=== PATIENT | male | born 1965 | race Caucasian/White ===

== ENCOUNTER 2017-10-10 15:25 | Inpatient (IN) | payer OTHER ==
[2017-10-10] MEDS ORDERED: PIPERACILLIN-TAZOBACTAM 3.375 GM in DEXTROSE/WATER 1 50ML.BAG IVPB STA (15:40)
[2017-10-10] MEDS ORDERED: AMPICILLIN-SULBACTAM 3 GM in SODIUM CHLORIDE 0.9% 100 ML IVPB STA (15:41)
[2017-10-10] MEDS: SODIUM CHLORIDE 0.9% 1,000 ML IV SCH (15:46)
[2017-10-10] MEDS ORDERED: VANCOMYCIN IV PER PHARMACY 1 EACH MISC MISCELLANE PRN (15:55)
[2017-10-10] MEDS ORDERED: NALOXONE 0.4 MG/ML 1 ML VIAL IV PRN (16:02)
--- NOTE | 2017-10-10 16:02 | ED ---
General Adult HPI - General Chief complaint: Skin/Abscess/Foreign Body Stated complaint: Foot Injury Time Seen by Provider: 10/10/17 15:34 Source: patient, EMS, RN notes reviewed Mode of arrival: EMS Limitations: no limitations - History of Present Illness Initial comments: This a 52-year-old male presents emergency Department who is a transfer from [facility] for acute renal failure, anemia, right foot infection/ fracture. Patient states she was diagnosed with a fractured to his right foot on Tuesday. Patient states that he's had a wound from a cut a few days to a week ago. Patient states that he has now been swollen, infected. Patient was states he has not been feeling well states he has not been eating or drinking he centimeters dehydrated with a creatinine of 6.0, BUN 104. Patient was given IV hydration. Patient hemoglobin is currently 6.5 baseline 8-8.2. Patient is a diabetic. Patient received 250 mg of vancomycin at [facility]. He should not receive any blood. Patient states that his right leg is swollen he states he normally is swollen but this is worsened usual. He has not had a recent ultrasound. X-ray of his right foot shows Charcot type arthropathy with soft tissue swelling bony destruction and dislocation evident - Related Data Home Medications Medication Instructions Recorded Confirmed Ascorbic Acid [Vitamin C] 500 mg PO BID 10/10/17 10/10/17 Carvedilol [Coreg] 12.5 mg PO BID 10/10/17 10/10/17 Chromium Picolinate 1,000 mcg PO DAILY 10/10/17 10/10/17 Ferrous Sulfate [Feosol] 325 mg PO BID 10/10/17 10/10/17 Furosemide [Lasix] 40 mg PO HS 10/10/17 10/10/17 Furosemide [Lasix] 60 mg PO QAM 10/10/17 10/10/17 Insulin Glargine,Hum.rec.anlog 38 - 40 units SQ HS 10/10/17 10/10/17 [Toujeo Solostar] Losartan Potassium [Cozaar] 100 mg PO DAILY 10/10/17 10/10/17 Multivitamin [Men's Multi-Vitamin] 1 tab PO DAILY 10/10/17 10/10/17 [place]-3 Fatty Acids/Fish Oil [Fish 1 cap PO DAILY 10/10/17 10/10/17 Oil 1,000 mg Softgel] cloNIDine HCL [Catapres] 0.1 mg PO BID 10/10/17 10/10/17 Allergies Allergy/AdvReac Type Severity Reaction Status Date / Time No Known Allergies Allergy Verified 10/10/17 16:22 Review of Systems ROS Statement: Those systems with pertinent positive or pertinent negative responses have been documented in the HPI. ROS Other: All systems not noted in ROS Statement are negative. Past Medical History Past Medical History: Diabetes Mellitus, Hyperlipidemia, Hypertension, Vascular Disorder Additional Past Medical History / Comment(s): chonic anemia, kidney disease, heart mumur, bleeding ulcer History of Any Multi-Drug Resistant Organisms: None Reported Past Surgical History: Hernia Repair Additional Past Surgical History / Comment(s): eye surgery Past Psychological History: No Psychological Hx Reported Smoking Status: Never smoker Past Alcohol Use History: Rare General Exam Limitations: no limitations General appearance: alert, in no apparent distress, obese Respiratory exam: Present: normal lung sounds bilaterally. Absent: respiratory distress, wheezes, rales, rhonchi, stridor Cardiovascular Exam: Present: regular rate, normal rhythm, normal heart sounds. Absent: systolic murmur, diastolic murmur, rubs, gallop, clicks Extremities exam: Present: other (Right lower extremity there is severe swelling noted with a large foot ulcer in the mid plantar surface with surrounding erythema and drainage and warmth. There are pulses are palpable though faint on the right.) Back exam: Absent: CVA tenderness (R), CVA tenderness (L) Skin exam: Present: warm, dry, intact, normal color. Absent: rash Course Vital Signs 10/10/17 15:29 Temperature 98.4 F Pulse Rate 74 Respiratory 16 Rate Blood Pressure 126/60 O2 Sat by Pulse 99 Oximetry Medical Decision Making - Medical Decision Making 52-year-old male presented for multiple complaints as a transfer. Patient be admitted for blood transfusion, IV antibiotics, hydration for acute renal failure. He shouldn't will not be placed in a splint at this time secondary to his infection he'll be nonweightbearing. Patient will be given additional vancomycin by pharmacy dosing. Disposition Clinical Impression: Diabetic ulcer of right foot, Foot fracture, right, Anemia, Acute renal failure Disposition: ADMITTED IP TO THIS HOSP Condition: Fair Referrals: Cholo Hollingsworth MD [Primary Care Provider] - 1-2 days
--- NOTE | 2017-10-10 16:46 | US ---
EXAMINATION TYPE: US venous doppler duplex LE RT DATE OF EXAM: 10/10/2017 4:37 PM COMPARISON: US 2011 CLINICAL HISTORY: Pain. Right foot pain/injury SIDE PERFORMED: Right TECHNIQUE: The lower extremity deep venous system is examined utilizing real time linear array sonog cindy with graded compression, doppler sonography and color-flow sonography. VESSELS IMAGED: External Iliac Vein (EIV) Common Femoral Vein Deep Femoral Vein Greater Saphenous Vein * Femoral Vein Popliteal Vein Small Saphenous Vein * Proximal Calf Veins (* superficial vessels) Right Leg: Appears negative for DVT Right groin: 4.7 x 2.2 x 5.2cm lymph node IMPRESSION: No evidence of deep venous thrombosis. There is a large right inguinal lymph node demonstrated.
[2017-10-10] MEDS ORDERED: VANCOMYCIN 2,000 MG in SODIUM CHLORIDE 0.9% 500 ML IVPB ONE (17:00)
[2017-10-10 19:34] VITALS: BMI 39.0
[2017-10-10] MEDS: PANTOPRAZOLE 40 MG/10 ML VIAL IVP SCH (20:54)
[2017-10-10] MEDS: ASCORBIC ACID 500 MG TAB PO SCH (23:14)
[2017-10-10] MEDS: CARVEDILOL 12.5 MG TAB PO SCH (23:14)
--- NOTE | 2017-10-10 23:53 | HP ---
HISTORY AND PHYSICAL DATE OF SERVICE: October 10, 2017. PRESENTING COMPLAINT: Right foot abscess. HISTORY OF PRESENTING COMPLAINT: A very pleasant 52 -year-old patient who does follow with Dr. Hollingsworth. Chronic stable medical conditions include diabetes, hypertension, chronic kidney disease, peptic ulcer disease. The patient on October 02 in the shower had a broken tile in his bathroom and got a injury on the plantar aspect. He wrapped up put some antibiotics but continued to become more and more painful, tender, and decided to finally go down to [facility] when the pain became unbearable. The patient has had numbness and tingling especially in the right foot for quite some time. Normally wears tennis shoes. X-ray done there showed the foot to have Charcot foot and a soft tissue swelling in there. The patient also was discovered to have a hemoglobin of 6.5, BUN of 104 and a creatinine of 6. Hence patient was transferred down here. REVIEW OF SYSTEMS: Review of systems: Fever, weak, tired, run down. HEENT none. Respiratory none. Cardiovascular none. Gastrointestinal none. Genitourinary none. Musculoskeletal as above. Dermatological as above. Lymphatics none. Psychiatry none. Neurological: Numbness and tingling in the feet, especially in the right feet. PAST MEDICAL HISTORY: Of diabetes, hypertension, chronic kidney disease, peptic ulcer disease, bleeding ulcer. PAST SURGICAL HISTORY: Hernia repair, eye surgery. SOCIAL HISTORY: Does not smoke or drink alcohol. . 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 FAMILY HISTORY: Reviewed, noncontributory to presentation. HOME MEDICATIONS: 1. Ferrous sulfate 325 mg p.o. b.i.d. 2. Chromium picolinate 1000 mcg p.o. daily. 3. Vitamin C 500 mg b.i.d. 4. Fish oil 1 capsule p.o. daily. 5. Multivitamin 1 tab p.o. daily. 6. Insulins [place] 38-40 units subcu q.h.s. 7. Catapres 0.1 mg p.o. b.i.d. 8. Cozaar 100 mg p.o. daily. 9. Lasix 60 mg in the morning, 40 mg at night. 10.Coreg 12.5 p.o. b.i.d. ALLERGIES: None. PHYSICAL EXAMINATION: Temperature 101.6, pulse 81, respiratory 20, blood pressure 124/58, pulse ox 97% on 2 L. GENERAL APPEARANCE: Is well built, BMI 39, sitting up tired-appearing. Eyes pupils equal. Conjunctivae normal. HEENT external appearance of nose and ears normal. Oral cavity normal. Neck short thick, JVD unable to assess. Mass not palpable. Respiratory effort normal. Lungs fair entry. Cardiovascular 1st and 2nd sounds normal. Some edema. ABDOMEN: Distended, soft. Liver and spleen not palpable. Lymphatics: No lymph nodes palpable in the neck and axilla. PSYCHIATRY: Alert and oriented times three. Mood and affect normal. Neurological: Pupils equal, no facial asymmetry. Decreased sensation distally, especially in the right foot. Musculoskeletal: Total deformation of the right foot and also there is an abscess on the plantar aspect of the foot, somewhat tender. INVESTIGATIONS: Blood work from [facility] showed sodium 135, potassium 5.2, BUN 104, creatinine 6.0. White count 14.3, hemoglobin 6.5, platelets 236. Phosphorus 120 and albumin 3.4. X-ray report showed Charcot foot and soft tissue swelling. ASSESSMENT: 1. Right foot abscess. The patient did get an injury by a tile about a week ago, now with an abscess causing sepsis. 2. Right Charcot foot shock secondary to diabetes. 3. Peripheral neuropathy secondary to diabetes. 4. Severe symptomatic anemia probably contribution from chronic kidney disease. 5. Acute on chronic renal failure probably from diabetic nephropathy and hypertensive nephrosclerosis. 6. Hyperkalemia due to chronic kidney disease. 7. Morbid obesity. 8. Obesity; BMI 39. 9. Essential hypertension. 10.Peptic ulcer disease. 11.Peripheral neuropathy secondary to diabetes. PLAN: The patient is started on IV Unasyn. Consultations being made to Orthopedics/Infectious Disease/vascular surgery to see what is the best form of intervention. We will have to establish patient's vascular status distally. We will hold off patient's Catapres, leave the patient on Coreg and other home medications. Accu-Cheks will be closely followed. Will send the patient's HbA1c. Care was discussed with the patient. Questions were answered. Copy to Dr. Hollingsworth. MMLAKESHIAL / JHN: [id number] /
[2017-10-10] MEDS: INSULIN DETEMIR 100 UNIT/ML 10 ML VIAL SQ SCH (23:54)
[2017-10-11] MEDS: AMPICILLIN-SULBACTAM 3 GM in SODIUM CHLORIDE 0.9% 100 ML IVPB SCH ×3 (00:02→20:44)
[2017-10-11 00:11] LABS: Glucose,Whole Blood 165 mg/dL (75-99)
[2017-10-11] MEDS: HYDROcodone/APAP 5-325MG 1 EACH TAB PO PRN ×2 (03:45→16:05)
[2017-10-11] MEDS: SODIUM CHLORIDE 0.9% 1,000 ML IV SCH (05:37)
[2017-10-11] MEDS: INSULIN ASPART 100 UNIT/ML 1 ML 10 ML VIAL SQ SCH ×6 (06:20→17:32)
[2017-10-11] MEDS: CARVEDILOL 12.5 MG TAB PO SCH ×2 (06:21→17:32)
[2017-10-11 06:31] LABS: Glucose,Whole Blood 126 mg/dL (75-99)
[2017-10-11 07:25] LABS: Anisocytosis Slight; Basophils % (A) 0 %; Eosinophils # (A) 0.1 k/uL (0-0.7); Eosinophils % (A) 1 %; HCT 21.8 % (39.0-53.0); Hypochromasia Slight; Lymphocytes # (A) 0.9 k/uL (1.0-4.8); Lymphocytes % (A) 7 %; MCH 27.2 pg (25.0-35.0); MCHC 31.6 g/dL (31.0-37.0); MCV 85.9 fL (80.0-100.0); Mean Platelet Volume 7.1; Monocytes # (A) 0.5 k/uL (0-1.0); Monocytes % (A) 4 %; Neutrophils # (A) 10.3 k/uL (1.3-7.7); Neutrophils % (A) 86 %; Platelet Count 275 k/uL (150-450); RBC 2.54 m/uL (4.30-5.90); RDW 16.3 % (11.5-15.5)
[2017-10-11 07:27] LABS: Albumin 2.9 g/dL (3.5-5.0); Calcium 9.8 mg/dL (8.4-10.2); Potassium 5.5 mmol/L (3.5-5.1); Total Bilirubin 0.5 mg/dL (0.2-1.3); Total Protein 6.2 g/dL (6.3-8.2)
[2017-10-11 07:38] LABS: HGB 6.9 gm/dL (13.0-17.5)
[2017-10-11] MEDS ORDERED: VANCOMYCIN IV PER PHARMACY 1 EACH MISC MISCELLANE PRN (08:23)
[2017-10-11] MEDS: PANTOPRAZOLE 40 MG/10 ML VIAL IVP SCH (08:43)
[2017-10-11] MEDS: ASCORBIC ACID 500 MG TAB PO SCH ×2 (08:44→20:44)
[2017-10-11] MEDS ORDERED: LOSARTAN 50 MG TAB PO SCH (09:00)
--- NOTE | 2017-10-11 09:18 | US ---
EXAMINATION TYPE: US renals and bladder DATE OF EXAM: 10/11/2017 COMPARISON: NONE CLINICAL HISTORY: renal failure. Abnormal labs. No pain. Hx of kidney disease. EXAM MEASUREMENTS: Right Kidney: 13.5 x 5.7 x 5.4 cm Left Kidney: 13.9 x 5.4 x 6.8 cm Right Kidney: No hydronephrosis or masses seen Left Kidney: Upper pole medial hypoechoic lesion appearing lesion seen= 2.5 x 2.1 x 2.2 cm Bladder: Distended, wnl Bilateral Jets not seen Incidental finding: multiple echogenic foci with shadowing seen in gallbladder IMPRESSION: 1. Cholelithiasis 2. Left renal hypoechoic lesion likely related to simple cyst. Does not meet all the criteria of a si mple cyst by ultrasound which may be technical could be confirmed with CT scan.
[2017-10-11] MEDS ORDERED: SODIUM BICARB 8.4% 50 ML SYR (1 MEQ/ML) IV STA (11:28)
[2017-10-11] MEDS ORDERED: SODIUM BICARB 8.4% 50 ML SYR (1 MEQ/ML) IV ONE (11:34)
[2017-10-11] MEDS ORDERED: INSULIN REGULAR 100 UNIT/ML VIAL IV ONE (11:35)
[2017-10-11] MEDS ORDERED: DEXTROSE 50%-WATER 50 ML SYRINGE IVP STA (11:35)
[2017-10-11] MEDS: DEXTROSE 5% IN WATER 1,000 ML with SODIUM BICARB (1 MEQ/ML) 150 ML IV SCH (11:59)
[2017-10-11] MEDS ORDERED: VANCOMYCIN 2,000 MG in SODIUM CHLORIDE 0.9% 500 ML IVPB ONE (12:00)
[2017-10-11 12:01] LABS: Glucose,Whole Blood 103 mg/dL (75-99)
--- NOTE | 2017-10-11 12:03 | P.NPCON ---
History of Present Illness - Reason for Consult acute renal failure - History of Present Illness Reason for consultation: Acute kidney injury on chronic kidney disease History of present illness: Patient is a 52-year-old male seen in renal consultation for acute kidney injury on chronic kidney disease. Patient has history of chronic kidney disease stage IIIB and states his baseline creatinine is near 2.2. Patient presented to [facility] due to right foot infection. Patient states he had an ulcer which she can't and shower yesterday. He did notice clear drainage and states it was quite painful. When he presented to the hospital his creatinine was 6 and hemoglobin was 6.9. He has received 1 unit of blood transfusion and is scheduled to receive another unit today. His creatinine is down to 5.2. He is currently maintained on normal saline at 75 mL an hour. He is receiving IV antibiotics. He does have long-standing history of diabetes mellitus. He was also taking losartan as well as Lasix at home which is currently held. States he had diminished urine output but has picked up since being in the hospital. Denies any hematuria or dysuria. Denies any melena or hematochezia. No hematemesis. He is noted to be acidotic with a bicarb level of 15 and potassium of 5.5. His renal ultrasound revealed no evidence of hydronephrosis. Denies use of NSAIDs. Denies family history of renal disease. Hemodynamically stable. Vital signs are stable. General: The patient appeared well nourished and normally developed. HEENT: Head exam is unremarkable. Neck is without jugular venous distension. LUNGS: Lungs are clear to auscultation and percussion. Breath sounds decreased. HEART: Rate and Rhythm are regular. First and second heart sounds normal. No murmurs, rubs or gallops. ABDOMEN: Abdominal exam reveals normal bowel sounds. Non-tender and non- distended. No evidence of peritonitis. EXTREMITITES: No clubbing, cyanosis, or edema. Right foot wrapped with no obvious drainage noted. Past Medical History Past Medical History: Diabetes Mellitus, Hypertension, Vascular Disorder Additional Past Medical History / Comment(s): chonic anemia, kidney disease, heart mumur, bleeding ulcer History of Any Multi-Drug Resistant Organisms: None Reported Past Surgical History: Hernia Repair Additional Past Surgical History / Comment(s): eye surgery Past Anesthesia/Blood Transfusion Reactions: No Reported Reaction Past Psychological History: No Psychological Hx Reported Smoking Status: Never smoker Past Alcohol Use History: Rare Medications and Allergies Home Medications Medication Instructions Recorded Confirmed Type Ascorbic Acid [Vitamin C] 500 mg PO BID 10/10/17 10/10/17 History Carvedilol [Coreg] 12.5 mg PO BID 10/10/17 10/10/17 History Chromium Picolinate 1,000 mcg PO DAILY 10/10/17 10/10/17 History Ferrous Sulfate [Feosol] 325 mg PO BID 10/10/17 10/10/17 History Furosemide [Lasix] 40 mg PO HS 10/10/17 10/10/17 History Furosemide [Lasix] 60 mg PO QAM 10/10/17 10/10/17 History Insulin Glargine,Hum.rec.anlog 38 - 40 units SQ HS 10/10/17 10/10/17 History [Toujeo Solostar] Losartan Potassium [Cozaar] 100 mg PO DAILY 10/10/17 10/10/17 History Multivitamin [Men's Multi-Vitamin] 1 tab PO DAILY 10/10/17 10/10/17 History [place]-3 Fatty Acids/Fish Oil [Fish 1 cap PO DAILY 10/10/17 10/10/17 History Oil 1,000 mg Softgel] cloNIDine HCL [Catapres] 0.1 mg PO BID 10/10/17 10/10/17 History Allergies Allergy/AdvReac Type Severity Reaction Status Date / Time No Known Allergies Allergy Verified 10/10/17 16:22 Physical Exam Vitals: Vital Signs Temp Pulse Pulse Resp BP BP Pulse Ox 10/11/17 11:46 16 10/11/17 08:00 100.2 F H 73 16 132/62 94 L 10/11/17 04:00 101.4 F H 81 19 112/55 92 L 10/11/17 00:07 100.5 F H 78 19 139/62 97 10/11/17 00:00 100.5 F H 78 19 139/62 97 10/10/17 22:09 101.3 F H 77 19 128/60 93 L 10/10/17 21:39 99.5 F 77 19 135/62 97 10/10/17 21:29 99.5 F 77 19 113/54 95 10/10/17 20:00 101.6 F H 81 19 124/58 97 10/10/17 18:26 73 16 115/57 92 L 10/10/17 18:12 97.8 F 70 10/10/17 15:29 98.4 F 74 16 126/60 99 Intake and Output 10/10/17 10/11/17 10/11/17 22:59 06:59 14:59 Intake Total 675 910 Balance 675 910 Intake: Intake, IV Titration 675 600 Amount Ampicillin-Sulbactam 3 gm 100 In Sodium Chloride 0.9% 100 ml @ 100 mls/hr IVPB Q8HR [facility] Rx#:[id number] Sodium Chloride 0.9% 1, 75 600 000 ml @ 75 mls/hr IV . [id number] [facility] Rx#:[id number] Vancomycin 2,000 mg In 500 Sodium Chloride 0.9% 500 ml @ 167 mls/hr IVPB ONCE ONE Rx#:[id number] Blood Product 0 310 Rc As-1 Unit 0 310 [id number] Other: Voiding Method Toilet Toilet Toilet Weight 127 kg 129 kg Results - Lab Results Most recent lab results Calcium 9.8 mg/dL (8.4-10.2) 10/11/17 06:49 Phosphorus 6.0 mg/dL (2.5-4.5) H 10/11/17 06:49 10/11/17 06:49 10/11/17 06:49 Assessment and Plan Plan: Assessment: #1. Nonoliguric acute kidney injury most to prerenal secondary to acute anemia and further worsened with the use of diuretics and Cozaar. Creatinine was 6 and is down to 5.2. No evidence of hydronephrosis on renal ultrasound. #2. Chronic kidney disease stage IIIB secondary to diabetic kidney disease with baseline creatinine near 2.2. #3. Acute blood loss anemia status post blood transfusion. #4. Hyperkalemia secondary to metabolic acidosis and concern for GI bleed. Further worsened with the use of Cozaar. #5. Metabolic acidosis secondary to acute kidney injury. #6. Right foot ulcer maintained on IV antibiotics. #7. Hypertension with chronic kidney disease. Currently controlled. #8. Hyperphosphatemia secondary to acute kidney injury. #9. Insulin-dependent diabetes mellitus. Plan: Discontinue normal saline. Start isotonic sodium bicarbonate drip to be run at 75 mL an hour. I will given 10 units of IV regular insulin with D50 along with 2 A of sodium bicarbonate IV push. Repeat potassium level at 6 PM today. Avoid nephrotoxic agents and hypotensive episodes. Diuretics and Cozaar held for now. Check iron studies. Check urinalysis. Add oral sodium bicarbonate. Maintain Renvela with meals. Monitor vancomycin levels. Dose to be adjusted for renal function. Check postvoid residual to rule out underlying urinary retention. Thank you for the consultation. I will continue to follow the patient with you during his hospital stay.
[2017-10-11] MEDS: SEVELAMER 800 MG TAB PO SCH ×2 (12:12→17:32)
[2017-10-11] MEDS: SODIUM BICARBONATE TAB 650 MG TAB PO SCH ×2 (13:49→20:43)
[2017-10-11] MEDS ORDERED: LIDOCAINE 1% INJ 10MG/ML (10 ML MDV) SQ ONE (16:03)
--- NOTE | 2017-10-11 16:10 | PN ---
PROGRESS NOTE DATE OF SERVICE: 10/11/17. PRESENTING COMPLAINT: Right foot abscess. INTERVAL HISTORY: This pleasant gentleman admitted with right foot abscess and Charcot foot from a foreign body infection. The pain in the foot is somewhat better. The patient does feel tired and run down. Also found to be in renal failure and significant anemia. Multiple consultants are in place. REVIEW OF SYSTEMS: Done for constitutional, cardiovascular, GI, pulmonary; relevant findings as above. CURRENT MEDICATIONS: Reviewed that include IV Zosyn, Levemir. PHYSICAL EXAMINATION: On examination T-max 101.3, pulse 73, respirations 16, blood pressure 132/62, pulse ox 94% on room air. GENERAL APPEARANCE: Sitting up in bed, tired appearing. EYES: Pupils equal. Conjunctivae normal. HEENT: External appearance of nose and ears normal. Oral cavity normal. NECK: Short thick, JVD unable to assess. Mass not palpable. RESPIRATORY: Effort normal. Lungs, slightly decreased distant breath sounds. CARDIOVASCULAR: First and second sounds normal. Edema present. ABDOMEN: Distended, soft. Liver and spleen not palpable. PSYCHIATRY: Alert and oriented x3. Mood and affect normal. EXTREMITIES: Deformed right foot with an abscess that is tender on the plantar aspect. INVESTIGATIONS: White count 12, hemoglobin 6.9, potassium 5.5, BUN 105, creatinine 5.2, phosphorus 6, albumin 2.9, calcium 9.8. ASSESSMENT: 1. Right foot abscess in the setting of a Charcot foot causing sepsis from a foreign body. 2. Right Charcot foot secondary to diabetes. 3. Peripheral neuropathy secondary to diabetes. 4. Severe symptomatic anemia with a possible contribution of chronic kidney disease. 5. Acute on chronic renal failure, probably from diabetic nephropathy and hypertensive nephrosclerosis. 6. Hyperkalemia due to chronic kidney disease. 7. Morbid obesity. 8. Obesity; BMI 39. 9. Essential hypertension. 10.Peptic ulcer disease. 11.Suspect chronic kidney disease with mineral bone disease bone disease. 12.Hypoalbuminemia as an acute phase reactant. PLAN: Await input from Orthopedics and Infectious Disease. The patient probably will need significant intervention and at least debridement. Assessment of his vascular status. Sugars are better control for right now. The patient's pain is better controlled. The patient also getting a unit of blood. MMODL / IJN: [id number] /
[2017-10-11] MEDS ORDERED: LIDOCAINE 1% INJ 10MG/ML (20 ML MDV) SQ ONE (16:15)
--- NOTE | 2017-10-11 16:31 | CONS ---
CONSULTATION This is a 52-year-old gentleman who came to the emergency room with history of swelling of the right foot with abscess formation. He had injury to his right foot about a week ago and when he was taking a shower and he had a broken tile which traumatized the right foot plantar aspect. He treated himself, then finally went to [facility] and patient was transferred to Dr. Mojica's service. The patient has history of chronic renal failure, diabetes, and Charcot foot. The patient on arrival to emergency room, his temperature was 101.6, pulse 81, respiration 20. ALLERGIES: No known allergies. PAST HISTORY: History of diabetes, hypertension, chronic renal failure with high BUN and creatinine. EXAMINATION: Patient was seen in the emergency room. His right foot is swollen and tender and pouring pus from the plantar aspect of the foot. His neck examination: Neck is supple. No bruit appreciated. CHEST: Clear to auscultation. ABDOMEN: Soft. Femoral pulses are present. Right foot has a plantar aspect large blister and abscess formation noted draining pus. PLAN: The patient had just ate lunch. We will arrange for I and D of the abscess and will take deep culture and wound debridement. Thank you very much. MMODL / IJN: [id number] /
--- NOTE | 2017-10-11 16:55 | PCN ---
PROCEDURE NOTE PREOPERATIVE DIAGNOSIS: Infected wound right foot plantar aspect with abscess formation and draining of pus. OPERATION: Draining of the pus and wound deep debridement plantar aspects of the right foot and deep culture. DESCRIPTION OF PROCEDURE: This patient was seen. The patient just had lunch so we did under local anesthesia. Right foot was prepped and drapes were applied in the usual sterile manner. 1% lidocaine infiltrated on the plantar aspect. A transverse incision was made on the plantar aspect of the foot where the abscess was and deepened through skin, fat, and fascia. A copious amount of pus came out and there was some necrotic tissue on the plantar dorsal aspect of the foot which was excised with sharp scissors. Some bleeding was noted which was controlled and abscess was drained completely and the wound was copiously irrigated with saline and 1 inch iodoform was placed and dressing applied. Patient tolerated the procedure well. PLAN: We will change the dressing daily. At this point prognosis guarded. We will wait for culture and the patient has been put on IV antibiotic and local wound care. The length of wound is about 4 cm and width is 2 cm and depth is down to the bone. MMODL / IJN: [id number] /
[2017-10-11 17:16] LABS: Glucose,Whole Blood 165 mg/dL (75-99)
[2017-10-11 18:41] LABS: Iron Saturation 6.21 (15.00-50.00)
[2017-10-11] MEDS: ACETAMINOPHEN TAB 325 MG TAB PO PRN (18:41)
[2017-10-11 19:13] LABS: Parathyroid Hormone Intact 809.5 pg/mL (14.0-72.0)
[2017-10-11 21:06] LABS: Glucose,Whole Blood 190 mg/dL (75-99)
[2017-10-11 21:22] LABS: Appearance,Urine Cloudy (Clear); Bacteria,Urine Occasional /hpf; Bilirubin,Urine Negative (Negative); Blood,Urine Negative (Negative); Budding Yeast,Urine Few /hpf; Color,Urine Yellow; Glucose,Urine (UA) Negative (Negative); Ketones,Urine Negative (Negative); Leukocyte Esterase,Urine Negative (Negative); Mucus,Urine Rare /hpf; Nitrite,Urine Negative (Negative); Protein,Urine 2+ (Negative); RBC,Urine 6 /hpf (0-5); Specific Gravity,Urine 1.014 (1.001-1.035); Urobilinogen,Urine <2.0 mg/dL (<2.0); WBC,Urine 10 /hpf (0-5)
[2017-10-11 21:42] LABS: Potassium 5.2 mmol/L (3.5-5.1)
[2017-10-11] MEDS: INSULIN DETEMIR 100 UNIT/ML 10 ML VIAL SQ SCH (21:54)
--- NOTE | 2017-10-11 22:59 | P.CONS ---
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 He was there is a tile that is broken but ended up causing an injury to his foot. He cared for the injury by cleansing it and applying antibiotic ointment and dressings. Despite this the foot quickly changed became very swollen painful and he developed fevers and chills and felt quite poorly overall. He went to his local hospital which point in time he was on evidence of sepsis as well as a acute renal failure and was transferred to our facility for further evaluation and potential hemodialysis. The patient was found evidence of significant swelling to the right lower extremity considerably greater than the left and consequently duplex was performed that showed no evidence of any deep venous thrombosis. With renal failure ultrasound was performed of the kidneys with no evidence of any obstructive process. Because of the wound and abscess on the right foot vascular surgery and infectious diseases consultation is requested. The patient has now had a bedside incision and drainage performed. If the outside hospital there was fever which is now improving. X-ray of the foot reveals evidence of a Charcot foot with potential fracture. The patient is feeling slightly better this evening and at this severe pain is improving after incision and drainage and receiving antibiotic therapy. Review of Systems HEENT:Denies headache or acute visual change. Denies sinus or mouth discomforts. Denies neck stiffness or pain. Denies significant oral cavity pain. Denies difficulty on swallowing. Lungs: Denies significant shortness of breath, cough, sputum production, or hemoptysis. Cardiovascular: Denies significant shortness of breath, chest pain, chest wall pain, orthopnea, dyspnea on exertion, syncope Gastrointestinal:Denies nausea, vomiting, diarrhea, constipation, hematemesis, melena, hematochezia. No no significant change of bowel habit noticed. Musculoskeletal: As per the HPI pain and swelling to the right foot Skin: As noted the significant ulcer in injury to the right foot Neuro: Denies headache or visual change. Denies any new onset weakness or difficulty with ambulation. Denies falls or seizures. Psychiatric: Patient does have difficulty with anxiety but no depression Endocrine: Profound fatigue and weight gain. Past Medical History Past Medical History: Diabetes Mellitus, Hypertension, Vascular Disorder Additional Past Medical History / Comment(s): chonic anemia, kidney disease, heart mumur, bleeding ulcer History of Any Multi-Drug Resistant Organisms: None Reported Past Surgical History: Hernia Repair Additional Past Surgical History / Comment(s): eye surgery Past Anesthesia/Blood Transfusion Reactions: No Reported Reaction Past Psychological History: No Psychological Hx Reported Additional Psychological History / Comment(s): . 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 No animals in the home. 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 2 children still at home Smoking Status: Never smoker Past Alcohol Use History: Rare Medications and Allergies Home Medications and Allergies Comment(s): Current Medications Acetaminophen (Tylenol Tab) 650 mg PO Q4HR PRN PRN Reason: Fever and/ or Pain Last Admin: 10/11/17 18:41 Dose: 650 mg Hydrocodone Bitart/Acetaminophen (Finley 5-325) 1 each PO Q4HR PRN PRN Reason: Moderate Pain Last Admin: 10/11/17 16:05 Dose: 1 each Ascorbic Acid (Vitamin C) 500 mg PO BID [facility] Last Admin: 10/11/17 20:44 Dose: 500 mg Carvedilol (Coreg) 12.5 mg PO AC-BID [facility] Last Admin: 10/11/17 17:32 Dose: 12.5 mg Ampicillin Sodium/Sulbactam (Sodium 3 gm/ Sodium Chloride) 100 mls @ 100 mls/ hr IVPB Q12H [facility] Last Admin: 10/11/17 20:44 Dose: 100 mls/hr Sodium Bicarbonate 150 ml/ (Dextrose/Water) 1,150 mls @ 75 mls/hr IV .[id number] [facility] Last Admin: 10/11/17 11:59 Dose: 75 mls/hr Daptomycin 500 mg/ Sodium (Chloride) 50 mls @ 100 mls/hr IV Q24H [facility] Insulin Aspart (Novolog) 0 unit SQ AC-TID [facility] PRN Reason: Protocol Last Admin: 10/11/17 17:32 Dose: 2 unit Insulin Aspart (Novolog) 7 unit SQ AC-TID [facility] Last Admin: 10/11/17 17:32 Dose: 7 unit Insulin Detemir (Levemir) 36 unit SQ HS [facility] Last Admin: 10/11/17 21:54 Dose: 36 unit Naloxone HCl (Narcan) 0.2 mg IV Q2M PRN PRN Reason: Opioid Reversal Pantoprazole Sodium (Protonix) 40 mg PO AC-BRKFST [facility] Sevelamer Carbonate (Renvela) 800 mg PO TID-W/MEALS [facility] Last Admin: 10/11/17 17:32 Dose: 800 mg Sodium Bicarbonate (Sodium Bicarbonate Tab) 650 mg PO BID [facility] Last Admin: 10/11/17 20:43 Dose: 650 mg Home Medications Medication Instructions Recorded Confirmed Type Ascorbic Acid [Vitamin C] 500 mg PO BID 10/10/17 10/10/17 History Carvedilol [Coreg] 12.5 mg PO BID 10/10/17 10/10/17 History Chromium Picolinate 1,000 mcg PO DAILY 10/10/17 10/10/17 History Ferrous Sulfate [Feosol] 325 mg PO BID 10/10/17 10/10/17 History Furosemide [Lasix] 40 mg PO HS 10/10/17 10/10/17 History Furosemide [Lasix] 60 mg PO QAM 10/10/17 10/10/17 History Insulin Glargine,Hum.rec.anlog 38 - 40 units SQ 10/10/17 10/10/17 History [Toujeo Solostar] Losartan Potassium [Cozaar] 100 mg PO DAILY 10/10/17 10/10/17 History Multivitamin [Men's Multi-Vitamin] 1 tab PO DAILY 10/10/17 10/10/17 History [place]-3 Fatty Acids/Fish Oil [Fish 1 cap PO DAILY 10/10/17 10/10/17 History Oil 1,000 mg Softgel] cloNIDine HCL [Catapres] 0.1 mg PO BID 10/10/17 10/10/17 History Allergies Allergy/AdvReac Type Severity Reaction Status Date / Time No Known Allergies Allergy Verified 10/10/17 16:22 Physical Exam Vitals: Vital Signs Temp Pulse Pulse Resp BP BP Pulse Ox 10/11/17 19:23 99.2 F 76 18 121/58 93 L 10/11/17 17:06 100 F H 79 18 130/60 94 L 10/11/17 16:41 100 F H 79 18 130/60 94 L 10/11/17 16:11 99.7 F H 78 16 93 L 10/11/17 16:01 77 18 125/58 94 L 03/27/18 16:00 75 18 10/11/17 12:00 98.3 F 75 16 132/64 10/11/17 11:46 16 10/11/17 08:00 100.2 F H 73 16 132/62 94 L 10/11/17 04:00 101.4 F H 81 19 112/55 92 L 10/11/17 00:07 100.5 F H 78 19 139/62 97 10/11/17 00:00 100.5 F H 78 19 139/62 97 Intake and Output 10/11/17 10/11/17 10/11/17 06:59 14:59 22:59 Intake Total 910 900 310 Balance 910 900 310 Intake: Intake, IV Titration 600 900 Amount Ampicillin-Sulbactam 3 gm 100 In Sodium Chloride 0.9% 100 ml @ 100 mls/hr IVPB Q12H [facility] Rx#:[id number] Dextrose 5% in Water 1, 300 000 ml @ 75 mls/hr IV . [id number] [facility] with Sodium Bicarb (1 Meq/ml) 150 ml Rx#:[id number] Sodium Chloride 0.9% 1, 600 000 ml @ 75 mls/hr IV . [id number] [facility] Rx#:[id number] Vancomycin 2,000 mg In 500 Sodium Chloride 0.9% 500 ml @ 167 mls/hr IVPB ONCE ONE Rx#:[id number] Blood Product 310 310 Rc As-1 Unit 310 [id number] Rc As-3 Unit 310 [id number] Other: Voiding Method Toilet Toilet Weight 129 kg 52-year-old male who relates he is more comfortable now than prior. Fevers improved and severe pain to the foot is improved HEENT: Anicteric conjunctiva are pink and moist nasal mucosa grossly intact without significant lesions, there is no thrush. Neck: The neck is supple without significant lymphadenopathy or thyromegaly. Lungs: Symmetrical air entry is noted, no wheezing few basilar crackles are heard. No dullness egophony or bronchial sounds are noted Heart: Regular rate and rhythm with an audible S1-S2, no S3 positive S4. There is no significant murmur click or rub, PMI was nondisplaced. Abdomen: Obese, Positive bowel sounds soft and nontender without palpable masses or organomegaly. There was no guarding or rebound. Extremities: The upper extremities have excellent pulses they are symmetric, no significant petechiae or telangiectasia. No splinter hemorrhages were noted. The left lower extremity has no open ulcerations at this time. There is very minimal edema has a compression stocking in place. Right lower extremity is evidence of the extensive edema from the foot to above the knee. There is evidence of the surgical dressing in place and incision and drainage that is not saturated through at this time. It has not yet been 24 hours since the incision and drainage dressing is not removed. Neuro: Awake alert oriented to person place and time. There are no acute new gross focal sensory motor deficits. Results CBC & Chem 7: 10/11/17 06:49 10/11/17 21:15 Labs: Abnormal Lab Results - Last 24 Hours (Table) 10/10/17 10/10/17 10/11/17 Range/Units 15:43 23:53 06:19 WBC (3.8-10.6) k/uL RBC (4.30-5.90) m/uL Hgb (13.0-17.5) gm/dL Hct (39.0-53.0) % RDW (11.5-15.5) % Neutrophils # (1.3-7.7) k/uL Lymphocytes # (1.0-4.8) k/uL Potassium (3.5-5.1) mmol/L Carbon Dioxide (22-30) mmol/L BUN (9-20) mg/dL Creatinine (0.66-1.25) mg/dL Glucose (74-99) mg/dL POC Glucose (mg/dL) 165 H 126 H (75-99) mg/dL Plasma Lactic Acid Duarte (0.7-2.0) mmol/L Phosphorus (2.5-4.5) mg/dL AST (17-59) U/L Total Protein (6.3-8.2) g/dL Albumin (3.5-5.0) g/dL Urine Protein (Negative) Urine RBC (0-5) /hpf Urine WBC (0-5) /hpf Urine Bacteria (None) /hpf Urine Mucus (None) /hpf Urine Yeast (Budding) (None) /hpf Crossmatch See Detail 10/11/17 10/11/17 10/11/17 Range/Units 06:49 06:49 11:53 WBC 12.0 H (3.8-10.6) k/uL RBC 2.54 L (4.30-5.90) m/uL Hgb 6.9 L* (13.0-17.5) gm/dL Hct 21.8 L (39.0-53.0) % RDW 16.3 H (11.5-15.5) % Neutrophils # 10.3 H (1.3-7.7) k/uL Lymphocytes # 0.9 L (1.0-4.8) k/uL Potassium 5.5 H (3.5-5.1) mmol/L Carbon Dioxide 15 L (22-30) mmol/L BUN 105 H* (9-20) mg/dL Creatinine 5.20 H* (0.66-1.25) mg/dL Glucose 110 H (74-99) mg/dL POC Glucose (mg/dL) 103 H (75-99) mg/dL Plasma Lactic Acid Duarte (0.7-2.0) mmol/L Phosphorus 6.0 H (2.5-4.5) mg/dL AST 16 L (17-59) U/L Total Protein 6.2 L (6.3-8.2) g/dL Albumin 2.9 L (3.5-5.0) g/dL Urine Protein (Negative) Urine RBC (0-5) /hpf Urine WBC (0-5) /hpf Urine Bacteria (None) /hpf Urine Mucus (None) /hpf Urine Yeast (Budding) (None) /hpf Crossmatch 10/11/17 10/11/17 10/11/17 Range/Units 17:14 21:01 21:12 WBC (3.8-10.6) k/uL RBC (4.30-5.90) m/uL Hgb (13.0-17.5) gm/dL Hct (39.0-53.0) % RDW (11.5-15.5) % Neutrophils # (1.3-7.7) k/uL Lymphocytes # (1.0-4.8) k/uL Potassium (3.5-5.1) mmol/L Carbon Dioxide (22-30) mmol/L BUN (9-20) mg/dL Creatinine (0.66-1.25) mg/dL Glucose (74-99) mg/dL POC Glucose (mg/dL) 165 H 190 H (75-99) mg/dL Plasma Lactic Acid Duarte (0.7-2.0) mmol/L Phosphorus (2.5-4.5) mg/dL AST (17-59) U/L Total Protein (6.3-8.2) g/dL Albumin (3.5-5.0) g/dL Urine Protein 2+ H (Negative) Urine RBC 6 H (0-5) /hpf Urine WBC 10 H (0-5) /hpf Urine Bacteria Occasional H (None) /hpf Urine Mucus Rare H (None) /hpf Urine Yeast (Budding) Few H (None) /hpf Crossmatch 10/11/17 10/11/17 Range/Units 21:15 21:15 WBC (3.8-10.6) k/uL RBC (4.30-5.90) m/uL Hgb (13.0-17.5) gm/dL Hct (39.0-53.0) % RDW (11.5-15.5) % Neutrophils # (1.3-7.7) k/uL Lymphocytes # (1.0-4.8) k/uL Potassium 5.2 H (3.5-5.1) mmol/L Carbon Dioxide 17 L (22-30) mmol/L BUN (9-20) mg/dL Creatinine (0.66-1.25) mg/dL Glucose (74-99) mg/dL POC Glucose (mg/dL) (75-99) mg/dL Plasma Lactic Acid Duarte <0.5 L (0.7-2.0) mmol/L Phosphorus (2.5-4.5) mg/dL AST (17-59) U/L Total Protein (6.3-8.2) g/dL Albumin (3.5-5.0) g/dL Urine Protein (Negative) Urine RBC (0-5) /hpf Urine WBC (0-5) /hpf Urine Bacteria (None) /hpf Urine Mucus (None) /hpf Urine Yeast (Budding) (None) /hpf Crossmatch Laboratory Results WBC 12.0 k/uL (3.8-10.6) H 10/11/17 06:49 RBC 2.54 m/uL (4.30-5.90) L 10/11/17 06:49 Hgb 6.9 gm/dL (13.0-17.5) L* 10/11/17 06:49 Hct 21.8 % (39.0-53.0) L 10/11/17 06:49 MCV 85.9 fL (80.0-100.0) 10/11/17 06:49 MCH 27.2 pg (25.0-35.0) 10/11/17 06:49 MCHC 31.6 g/dL (31.0-37.0) 10/11/17 06:49 RDW 16.3 % (11.5-15.5) H 10/11/17 06:49 Plt Count 275 k/uL (150-450) 10/11/17 06:49 Neutrophils % 86 % 10/11/17 06:49 Lymphocytes % 7 % 10/11/17 06:49 Monocytes % 4 % 10/11/17 06:49 Eosinophils % 1 % 10/11/17 06:49 Basophils % 0 % 10/11/17 06:49 Neutrophils # 10.3 k/uL (1.3-7.7) H 10/11/17 06:49 Lymphocytes # 0.9 k/uL (1.0-4.8) L 10/11/17 06:49 Monocytes # 0.5 k/uL (0-1.0) 10/11/17 06:49 Eosinophils # 0.1 k/uL (0-0.7) 10/11/17 06:49 Basophils # 0.0 k/uL (0-0.2) 10/11/17 06:49 Hypochromasia Slight 10/11/17 06:49 Anisocytosis Slight 10/11/17 06:49 Sodium 141 mmol/L (137-145) 10/11/17 21:15 Potassium 5.2 mmol/L (3.5-5.1) H 10/11/17 21:15 Chloride 106 mmol/L (98-107) 10/11/17 21:15 Carbon Dioxide 17 mmol/L (22-30) L 10/11/17 21:15 Anion Gap 18 mmol/L 10/11/17 21:15 BUN 105 mg/dL (9-20) H* 10/11/17 06:49 Creatinine 5.20 mg/dL (0.66-1.25) H* 10/11/17 06:49 Est GFR (CKD-EPI)AfAm 13 (>60 ml/min/1.73 sqM) 10/11/17 06:49 Est GFR (CKD-EPI)NonAf 12 (>60 ml/min/1.73 sqM) 10/11/17 06:49 Glucose 110 mg/dL (74-99) H 10/11/17 06:49 POC Glucose (mg/dL) 190 mg/dL (75-99) H 10/11/17 21:01 POC Glu Gold Frame Assembler ID Kezia Zaragoza 10/11/17 21:01 Plasma Lactic Acid Duarte <0.5 mmol/L (0.7-2.0) L 10/11/17 21:15 Calcium 9.8 mg/dL (8.4-10.2) 10/11/17 06:49 Phosphorus 6.0 mg/dL (2.5-4.5) H 10/11/17 06:49 Iron 11 ug/dL (65-175) L 10/11/17 06:49 TIBC 177 ug/dL (228-460) L 10/11/17 06:49 Iron Saturation 6.21 (15.00-50.00) L 10/11/17 06:49 Ferritin 911.2 ng/mL (22.0-322.0) H 10/11/17 06:49 Total Bilirubin 0.5 mg/dL (0.2-1.3) 10/11/17 06:49 AST 16 U/L (17-59) L 10/11/17 06:49 ALT 30 U/L (21-72) 10/11/17 06:49 Alkaline Phosphatase 122 U/L (38-126) 10/11/17 06:49 Total Protein 6.2 g/dL (6.3-8.2) L 10/11/17 06:49 Albumin 2.9 g/dL (3.5-5.0) L 10/11/17 06:49 PTH Intact 809.5 pg/mL (14.0-72.0) H 10/11/17 06:49 Urine Color Yellow 10/11/17 21:12 Urine Appearance Cloudy (Clear) 10/11/17 21:12 Urine pH 5.0 (5.0-8.0) 10/11/17 21:12 Ur Specific Jelm 1.014 (1.001-1.035) 10/11/17 21:12 Urine Protein 2+ (Negative) H 10/11/17 21:12 Urine Glucose (UA) Negative (Negative) 10/11/17 21:12 Urine Ketones Negative (Negative) 10/11/17 21:12 Urine Blood Negative (Negative) 10/11/17 21:12 Urine Nitrite Negative (Negative) 10/11/17 21:12 Urine Bilirubin Negative (Negative) 10/11/17 21:12 Urine Urobilinogen <2.0 mg/dL (<2.0) 10/11/17 21:12 Ur Leukocyte Esterase Negative (Negative) 10/11/17 21:12 Urine RBC 6 /hpf (0-5) H 10/11/17 21:12 Urine WBC 10 /hpf (0-5) H 10/11/17 21:12 Urine Bacteria Occasional /hpf (None) H 10/11/17 21:12 Urine Mucus Rare /hpf (None) H 10/11/17 21:12 Urine Yeast (Budding) Few /hpf (None) H 10/11/17 21:12 Blood Type A Positive 10/10/17 15:43 Blood Type Recheck No 10/10/17 15:43 Antibody Screen NEGATIVE 10/10/17 15:43 Crossmatch See Detail 10/10/17 15:43 Spec Expiration Date 10/13/2017 - 234210/10/17 15:43 Assessment and Plan (1) Acute renal failure Current Visit: Yes Status: Acute Code(s): N17.9 - ACUTE KIDNEY FAILURE, UNSPECIFIED SNOMED Code(s): 25913396 (2) Diabetic ulcer of right foot Narrative/Plan: 52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 This started with an injury to his right foot by cutting tile. Within several days started to feel poorly with fevers chills and progressive malaise. Relates that when he feels poorly sometimes his duodenal ulcer will bleed. Will become anemic. He did present to his local emergency room where he was found evidence of significant anemia with a hemoglobin less than 7. Acute renal failure with a creatinine of 5.2. He was transferred to [facility] for further intervention. He was found evidence of a significant abscess on the plantar surface of the right foot and consequently had an incision and drainage performed by vascular surgery. The patient is feeling a bit better this evening. He has received antibiotics with Unasyn and a dose of vancomycin. Because of his acute renal failure vancomycin is discontinued and we'll switch him to daptomycin. Goal be to avoid nephrotoxic agents as his kidney function is attempting to recover. Nephrology following. Hopefully he will not need to progress on to hemodialysis. Obtain MRI to evaluate for osteomyelitis of the charot foot which by x-ray has fractures unable to determine acuity and infection. Await culture results to help direct the course of antibiotic therapy which I most likely will be intravenous given the complex foot infection and goal for foot and leg salvage. Current Visit: Yes Status: Acute Code(s): E11.621 - TYPE 2 DIABETES MELLITUS WITH FOOT ULCER; L97.519 - NON-PRS CHRONIC ULCER OTH PRT RIGHT FOOT W UNSP SEVERITY SNOMED Code(s): 127531972 (3) Acute blood loss anemia Current Visit: Yes Status: Acute Code(s): D62 - ACUTE POSTHEMORRHAGIC ANEMIA SNOMED Code(s): 938913679
[2017-10-12 05:55] LABS: Glucose,Whole Blood 263 mg/dL (75-99)
[2017-10-12 06:19] LABS: Anisocytosis Slight; Basophils % (A) 0 %; Eosinophils # (A) 0.1 k/uL (0-0.7); Eosinophils % (A) 1 %; HCT 20.5 % (39.0-53.0); Hypochromasia Slight; Lymphocytes # (A) 0.6 k/uL (1.0-4.8); Lymphocytes % (A) 5 %; MCH 26.9 pg (25.0-35.0); MCV 86.6 fL (80.0-100.0); Mean Platelet Volume 7.3; Monocytes # (A) 0.6 k/uL (0-1.0); Monocytes % (A) 5 %; Neutrophils # (A) 10.3 k/uL (1.3-7.7); Neutrophils % (A) 88 %; Platelet Count 268 k/uL (150-450); RBC 2.37 m/uL (4.30-5.90); RDW 16.6 % (11.5-15.5); WBC 11.7 k/uL (3.8-10.6)
[2017-10-12 06:27] LABS: HGB 6.4 gm/dL (13.0-17.5)
[2017-10-12 06:30] LABS: Calcium 9.2 mg/dL (8.4-10.2); Potassium 5.9 mmol/L (3.5-5.1)
[2017-10-12] MEDS ORDERED: DEXTROSE 50%-WATER 50 ML SYRINGE IVP STA (06:47)
[2017-10-12] MEDS ORDERED: SODIUM BICARB 8.4% 50 ML SYR (1 MEQ/ML) IV STA ×2 (06:48→07:17)
[2017-10-12] MEDS ORDERED: INSULIN REGULAR 100 UNIT/ML VIAL IV ONE (06:48)
[2017-10-12] MEDS: DEXTROSE 5% IN WATER 1,000 ML with SODIUM BICARB (1 MEQ/ML) 150 ML IV SCH (07:00)
[2017-10-12] MEDS ORDERED: DAPTOmycin 500 MG in SODIUM CHLORIDE 0.9% 50 ML IV SCH (07:00)
[2017-10-12] MEDS: PANTOPRAZOLE 40 MG TABLET PO SCH (07:01)
[2017-10-12] MEDS: SEVELAMER 800 MG TAB PO SCH ×3 (07:02→17:23)
[2017-10-12] MEDS: CARVEDILOL 12.5 MG TAB PO SCH ×2 (07:02→17:23)
[2017-10-12] MEDS: INSULIN ASPART 100 UNIT/ML 1 ML 10 ML VIAL SQ SCH ×6 (07:13→17:21)
--- NOTE | 2017-10-12 08:14 | PN ---
PROGRESS NOTE A 52-year-old gentleman who came in with infected abscess right foot plantar aspect with Charcot foot. We did I and D and wound debridement yesterday. Waiting for the culture. The patient is on IV antibiotics. We changed the dressing. We started using Aquacel Silver from tomorrow and awaiting for the culture report. MMODL / IJN: [id number] /
[2017-10-12] MEDS ORDERED: DESMOPRESSIN ACETATE 4 MCG/ML VIAL (MDV) ONE (08:54)
[2017-10-12] MEDS ORDERED: SODIUM CHLORIDE 0.9% 50 ML BAG ONE (08:54)
--- NOTE | 2017-10-12 09:12 | P.PN ---
Subjective Patient is seen in follow-up for acute kidney injury on chronic kidney disease. Patient has chronic kidney disease stage IIIB/4 secondary to diabetic kidney disease with baseline creatinine near 2.2. His creatinine today is up to 5.7. He denies any nausea or vomiting. Oral intake is good. He is currently being treated for right foot infection. He is hemoglobin is down to 6.4 today. He did receive 2 units of blood yesterday. Denies any melena or hematochezia. Potassium level is 5.9. Vital signs are stable. General: The patient appeared well nourished and normally developed. HEENT: Head exam is unremarkable. Neck is without jugular venous distension. LUNGS: Lungs are clear to auscultation and percussion. Breath sounds decreased. HEART: Rate and Rhythm are regular. First and second heart sounds normal. No murmurs, rubs or gallops. ABDOMEN: Abdominal exam reveals normal bowel sounds. Non-tender and non- distended. No evidence of peritonitis. EXTREMITITES: No clubbing, cyanosis, or edema. No obvious drainage noted from the right foot. Objective - Vital Signs Vital signs: Vital Signs Temp 99.9 F H 10/12/17 08:00 Pulse 79 10/12/17 08:00 Resp 16 10/12/17 08:00 BP 117/60 10/12/17 08:00 Pulse Ox 92 L 10/12/17 08:00 Intake & Output 10/11/17 10/12/17 10/12/17 18:59 06:59 18:59 Intake Total 1210 Output Total 400 Balance 1210 -400 Weight 131 kg Intake: Intake, IV Titration 900 Amount Ampicillin-Sulbactam 3 gm 100 In Sodium Chloride 0.9% 100 ml @ 100 mls/hr IVPB Q12H [facility] Rx#:[id number] Dextrose 5% in Water 1, 300 000 ml @ 75 mls/hr IV . [id number] [facility] with Sodium Bicarb (1 Meq/ml) 150 ml Rx#:[id number] Vancomycin 2,000 mg In 500 Sodium Chloride 0.9% 500 ml @ 167 mls/hr IVPB ONCE ONE Rx#:[id number] Blood Product 310 Rc As-3 Unit 310 [id number] Output: Urine 400 Other: Voiding Method Toilet Toilet # Voids 0 - Labs CBC & Chem 7: 10/12/17 05:40 10/12/17 05:40 Labs: Abnormal Lab Results - Last 24 Hours (Table) 10/10/17 10/11/17 10/11/17 Range/Units 15:43 06:49 11:53 WBC (3.8-10.6) k/uL RBC (4.30-5.90) m/uL Hgb (13.0-17.5) gm/dL Hct (39.0-53.0) % RDW (11.5-15.5) % Neutrophils # (1.3-7.7) k/uL Lymphocytes # (1.0-4.8) k/uL Potassium (3.5-5.1) mmol/L Carbon Dioxide (22-30) mmol/L BUN (9-20) mg/dL Creatinine (0.66-1.25) mg/dL Glucose (74-99) mg/dL POC Glucose (mg/dL) 103 H (75-99) mg/dL Plasma Lactic Acid Duarte (0.7-2.0) mmol/L Iron 11 L (65-175) ug/dL TIBC 177 L (228-460) ug/dL Iron Saturation 6.21 L (15.00-50.00) Ferritin 911.2 H (22.0-322.0) ng/mL C-Reactive Protein (<10.0) mg/L PTH Intact 809.5 H (14.0-72.0) pg/mL Urine Protein (Negative) Urine RBC (0-5) /hpf Urine WBC (0-5) /hpf Urine Bacteria (None) /hpf Urine Mucus (None) /hpf Urine Yeast (Budding) (None) /hpf Crossmatch See Detail 10/11/17 10/11/17 10/11/17 Range/Units 17:14 21:01 21:12 WBC (3.8-10.6) k/uL RBC (4.30-5.90) m/uL Hgb (13.0-17.5) gm/dL Hct (39.0-53.0) % RDW (11.5-15.5) % Neutrophils # (1.3-7.7) k/uL Lymphocytes # (1.0-4.8) k/uL Potassium (3.5-5.1) mmol/L Carbon Dioxide (22-30) mmol/L BUN (9-20) mg/dL Creatinine (0.66-1.25) mg/dL Glucose (74-99) mg/dL POC Glucose (mg/dL) 165 H 190 H (75-99) mg/dL Plasma Lactic Acid Duarte (0.7-2.0) mmol/L Iron (65-175) ug/dL TIBC (228-460) ug/dL Iron Saturation (15.00-50.00) Ferritin (22.0-322.0) ng/mL C-Reactive Protein (<10.0) mg/L PTH Intact (14.0-72.0) pg/mL Urine Protein 2+ H (Negative) Urine RBC 6 H (0-5) /hpf Urine WBC 10 H (0-5) /hpf Urine Bacteria Occasional H (None) /hpf Urine Mucus Rare H (None) /hpf Urine Yeast (Budding) Few H (None) /hpf Crossmatch 10/11/17 10/11/17 10/11/17 Range/Units 21:15 21:15 21:20 WBC (3.8-10.6) k/uL RBC (4.30-5.90) m/uL Hgb (13.0-17.5) gm/dL Hct (39.0-53.0) % RDW (11.5-15.5) % Neutrophils # (1.3-7.7) k/uL Lymphocytes # (1.0-4.8) k/uL Potassium 5.2 H (3.5-5.1) mmol/L Carbon Dioxide 17 L (22-30) mmol/L BUN (9-20) mg/dL Creatinine (0.66-1.25) mg/dL Glucose (74-99) mg/dL POC Glucose (mg/dL) (75-99) mg/dL Plasma Lactic Acid Duarte <0.5 L (0.7-2.0) mmol/L Iron (65-175) ug/dL TIBC (228-460) ug/dL Iron Saturation (15.00-50.00) Ferritin (22.0-322.0) ng/mL C-Reactive Protein 218.6 H (<10.0) mg/L PTH Intact (14.0-72.0) pg/mL Urine Protein (Negative) Urine RBC (0-5) /hpf Urine WBC (0-5) /hpf Urine Bacteria (None) /hpf Urine Mucus (None) /hpf Urine Yeast (Budding) (None) /hpf Crossmatch 10/12/17 10/12/17 10/12/17 Range/Units 05:40 05:40 05:54 WBC 11.7 H (3.8-10.6) k/uL RBC 2.37 L (4.30-5.90) m/uL Hgb 6.4 L* (13.0-17.5) gm/dL Hct 20.5 L (39.0-53.0) % RDW 16.6 H (11.5-15.5) % Neutrophils # 10.3 H (1.3-7.7) k/uL Lymphocytes # 0.6 L (1.0-4.8) k/uL Potassium 5.9 H (3.5-5.1) mmol/L Carbon Dioxide 18 L (22-30) mmol/L BUN 110 H* (9-20) mg/dL Creatinine 5.70 H* (0.66-1.25) mg/dL Glucose 217 H (74-99) mg/dL POC Glucose (mg/dL) 263 H (75-99) mg/dL Plasma Lactic Acid Duarte (0.7-2.0) mmol/L Iron (65-175) ug/dL TIBC (228-460) ug/dL Iron Saturation (15.00-50.00) Ferritin (22.0-322.0) ng/mL C-Reactive Protein (<10.0) mg/L PTH Intact (14.0-72.0) pg/mL Urine Protein (Negative) Urine RBC (0-5) /hpf Urine WBC (0-5) /hpf Urine Bacteria (None) /hpf Urine Mucus (None) /hpf Urine Yeast (Budding) (None) /hpf Crossmatch Assessment and Plan Plan: Assessment: #1. Nonoliguric acute kidney injury most to prerenal secondary to acute anemia and further worsened with the use of diuretics and Cozaar. Creatinine was 6 on the day of admission and it did come down to 5.2. Is up to 5.7 today.. No evidence of hydronephrosis on renal ultrasound. No evidence of urinary retention. He does have proteinuria and hematuria on UA. Concern for GN as well. #2. Chronic kidney disease stage IIIB secondary to diabetic kidney disease with baseline creatinine near 2.2. #3. Acute blood loss anemia status post blood transfusion. Hemoglobin down to 6.4 today. #4. Hyperkalemia secondary to acute kidney injury, metabolic acidosis and concern for GI bleed. Further worsened with the use of Cozaar. #5. Metabolic acidosis secondary to acute kidney injury. #6. Right foot ulcer maintained on IV antibiotics per infectious disease recommendations. #7. Hypertension with chronic kidney disease. Currently controlled. #8. Hyperphosphatemia secondary to acute kidney injury/chronic kidney disease maintained on Renvela. #9. Insulin-dependent diabetes mellitus. #10. Chronic kidney disease mineral bone disease. Plan: Maintain isotonic sodium bicarbonate drip to be run at 75 mL an hour. I did give him 10 units of IV regular insulin with D50 along with 2 A of sodium bicarbonate IV push. Low potassium diet. Repeat potassium level at 10 AM today. Avoid nephrotoxic agents and hypotensive episodes. Diuretics and Cozaar held for now. Increase oral sodium bicarbonate 1300 mg twice daily. Quantify proteinuria. Check serologies and urine eosinophils. Patient to receive 1 unit of blood transfusion today. Start calcitriol. I did discuss with the patient the potential need for renal replacement therapy if no improvement in his renal function and urine output in the next 24-48 hours.
[2017-10-12] MEDS: CALCITRIOL 0.25 MCG CAP PO SCH (09:13)
[2017-10-12] MEDS: AMPICILLIN-SULBACTAM 3 GM in SODIUM CHLORIDE 0.9% 100 ML IVPB SCH ×2 (09:14→20:48)
[2017-10-12] MEDS: ASCORBIC ACID 500 MG TAB PO SCH ×2 (09:14→20:51)
[2017-10-12] MEDS: SODIUM BICARBONATE TAB 650 MG TAB PO SCH ×3 (09:14→20:51)
[2017-10-12] MEDS ORDERED: DESMOPRESSIN INJ 4 MCG/ML AMP IV SCH (10:30)
[2017-10-12] MEDS ORDERED: SODIUM CHLORIDE 0.9% IVPB ONE (10:45)
[2017-10-12] MEDS ORDERED: DESMOPRESSIN IVPB ONE (10:45)
[2017-10-12 11:31] LABS: Iron Saturation 6.1 (15.00-50.00)
[2017-10-12 11:45] LABS: Glucose,Whole Blood 240 mg/dL (75-99)
--- NOTE | 2017-10-12 13:33 | P.CNOR ---
History of Present Illness - HPI Consult date: 10/12/17 History of present illness: This is a 52-year-old male who was admitted for sepsis, acute renal failure, anemia and right foot infection. Patient is a known diabetic. Orthopedics is consulted due to right foot infection and right foot fracture. Patient states he cut his foot in the shower on a broken tile and subsequently developed pain and swelling. Patient presented to [facility] and was transferred to [facility]. A venous Doppler ultrasound was negative for DVT in the emergency room. Patient states he had a bedside I&D done by vascular surgery yesterday. Patient reports improvement in pain and symptoms at this time. Patient states his right foot has been abnormal for awhile now. Patient denies any fever/chills, weakness, tingling, abdominal pain, shortness of breath or chest pain. Review of Systems See HPI. Past Medical History Past Medical History: Diabetes Mellitus, Hypertension, Vascular Disorder Additional Past Medical History / Comment(s): chonic anemia, kidney disease, heart mumur, bleeding ulcer History of Any Multi-Drug Resistant Organisms: None Reported Past Surgical History: Hernia Repair Additional Past Surgical History / Comment(s): eye surgery Past Anesthesia/Blood Transfusion Reactions: No Reported Reaction Past Psychological History: No Psychological Hx Reported Additional Psychological History / Comment(s): . 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 No animals in the home. 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 2 children still at home Smoking Status: Never smoker Past Alcohol Use History: Rare Medications and Allergies Home Medications Medication Instructions Recorded Confirmed Type Ascorbic Acid [Vitamin C] 500 mg PO BID 10/10/17 10/10/17 History Carvedilol [Coreg] 12.5 mg PO BID 10/10/17 10/10/17 History Chromium Picolinate 1,000 mcg PO DAILY 10/10/17 10/10/17 History Ferrous Sulfate [Feosol] 325 mg PO BID 10/10/17 10/10/17 History Furosemide [Lasix] 40 mg PO HS 10/10/17 10/10/17 History Furosemide [Lasix] 60 mg PO QAM 10/10/17 10/10/17 History Insulin Glargine,Hum.rec.anlog 38 - 40 units SQ 10/10/17 10/10/17 History [Martin Hernandez] Losartan Potassium [Cozaar] 100 mg PO DAILY 10/10/17 10/10/17 History Multivitamin [Men's Multi-Vitamin] 1 tab PO DAILY 10/10/17 10/10/17 History [place]-3 Fatty Acids/Fish Oil [Fish 1 cap PO DAILY 10/10/17 10/10/17 History Oil 1,000 mg Softgel] cloNIDine HCL [Catapres] 0.1 mg PO BID 10/10/17 10/10/17 History Allergies Allergy/AdvReac Type Severity Reaction Status Date / Time No Known Allergies Allergy Verified 10/10/17 16:22 Physical Examination On exam patient is alert and oriented 3 and lying comfortably in bed. There is a dressing intact over the right foot with mild drainage. Capillary refill is normal at less than 2 seconds. Patient has full foot and ankle motion without difficulty. There is swelling to the right lower extremity. Calf is soft and nontender to palpation. Neurovascular status circulatory status are intact. Results Venous Doppler of right lower extremity dated 10/10/2017 is negative for DVT. X-rays of the right foot show evidence for Charcot foot. - Labs Labs: Abnormal Lab Results - Last 24 Hours (Table) 10/10/17 10/11/17 10/11/17 Range/Units 15:43 06:49 11:53 WBC (3.8-10.6) k/uL RBC (4.30-5.90) m/uL Hgb (13.0-17.5) gm/dL Hct (39.0-53.0) % RDW (11.5-15.5) % Neutrophils # (1.3-7.7) k/uL Lymphocytes # (1.0-4.8) k/uL Potassium (3.5-5.1) mmol/L Carbon Dioxide (22-30) mmol/L BUN (9-20) mg/dL Creatinine (0.66-1.25) mg/dL Glucose (74-99) mg/dL POC Glucose (mg/dL) 103 H (75-99) mg/dL Plasma Lactic Acid Duarte (0.7-2.0) mmol/L Iron 11 L (65-175) ug/dL TIBC 177 L (228-460) ug/dL Iron Saturation 6.21 L (15.00-50.00) Ferritin 911.2 H (22.0-322.0) ng/mL C-Reactive Protein (<10.0) mg/L PTH Intact 809.5 H (14.0-72.0) pg/mL Urine Protein (Negative) Urine RBC (0-5) /hpf Urine WBC (0-5) /hpf Urine Bacteria (None) /hpf Urine Mucus (None) /hpf Urine Yeast (Budding) (None) /hpf Crossmatch See Detail 10/11/17 10/11/17 10/11/17 Range/Units 17:14 21:01 21:12 WBC (3.8-10.6) k/uL RBC (4.30-5.90) m/uL Hgb (13.0-17.5) gm/dL Hct (39.0-53.0) % RDW (11.5-15.5) % Neutrophils # (1.3-7.7) k/uL Lymphocytes # (1.0-4.8) k/uL Potassium (3.5-5.1) mmol/L Carbon Dioxide (22-30) mmol/L BUN (9-20) mg/dL Creatinine (0.66-1.25) mg/dL Glucose (74-99) mg/dL POC Glucose (mg/dL) 165 H 190 H (75-99) mg/dL Plasma Lactic Acid Duarte (0.7-2.0) mmol/L Iron (65-175) ug/dL TIBC (228-460) ug/dL Iron Saturation (15.00-50.00) Ferritin (22.0-322.0) ng/mL C-Reactive Protein (<10.0) mg/L PTH Intact (14.0-72.0) pg/mL Urine Protein 2+ H (Negative) Urine RBC 6 H (0-5) /hpf Urine WBC 10 H (0-5) /hpf Urine Bacteria Occasional H (None) /hpf Urine Mucus Rare H (None) /hpf Urine Yeast (Budding) Few H (None) /hpf Crossmatch 10/11/17 10/11/17 10/11/17 Range/Units 21:15 21:15 21:20 WBC (3.8-10.6) k/uL RBC (4.30-5.90) m/uL Hgb (13.0-17.5) gm/dL Hct (39.0-53.0) % RDW (11.5-15.5) % Neutrophils # (1.3-7.7) k/uL Lymphocytes # (1.0-4.8) k/uL Potassium 5.2 H (3.5-5.1) mmol/L Carbon Dioxide 17 L (22-30) mmol/L BUN (9-20) mg/dL Creatinine (0.66-1.25) mg/dL Glucose (74-99) mg/dL POC Glucose (mg/dL) (75-99) mg/dL Plasma Lactic Acid Duarte <0.5 L (0.7-2.0) mmol/L Iron (65-175) ug/dL TIBC (228-460) ug/dL Iron Saturation (15.00-50.00) Ferritin (22.0-322.0) ng/mL C-Reactive Protein 218.6 H (<10.0) mg/L PTH Intact (14.0-72.0) pg/mL Urine Protein (Negative) Urine RBC (0-5) /hpf Urine WBC (0-5) /hpf Urine Bacteria (None) /hpf Urine Mucus (None) /hpf Urine Yeast (Budding) (None) /hpf Crossmatch 10/12/17 10/12/17 10/12/17 Range/Units 05:40 05:40 05:54 WBC 11.7 H (3.8-10.6) k/uL RBC 2.37 L (4.30-5.90) m/uL Hgb 6.4 L* (13.0-17.5) gm/dL Hct 20.5 L (39.0-53.0) % RDW 16.6 H (11.5-15.5) % Neutrophils # 10.3 H (1.3-7.7) k/uL Lymphocytes # 0.6 L (1.0-4.8) k/uL Potassium 5.9 H (3.5-5.1) mmol/L Carbon Dioxide 18 L (22-30) mmol/L BUN 110 H* (9-20) mg/dL Creatinine 5.70 H* (0.66-1.25) mg/dL Glucose 217 H (74-99) mg/dL POC Glucose (mg/dL) 263 H (75-99) mg/dL Plasma Lactic Acid Duarte (0.7-2.0) mmol/L Iron (65-175) ug/dL TIBC (228-460) ug/dL Iron Saturation (15.00-50.00) Ferritin (22.0-322.0) ng/mL C-Reactive Protein (<10.0) mg/L PTH Intact (14.0-72.0) pg/mL Urine Protein (Negative) Urine RBC (0-5) /hpf Urine WBC (0-5) /hpf Urine Bacteria (None) /hpf Urine Mucus (None) /hpf Urine Yeast (Budding) (None) /hpf Crossmatch H & H 10/11/17 10/12/17 Range/Units 06:49 05:40 Hgb 6.9 L* 6.4 L* (13.0-17.5) gm/dL Hct 21.8 L 20.5 L (39.0-53.0) % Result Diagrams: 10/12/17 05:40 10/12/17 09:59 Assessment and Plan (1) Acute renal failure Current Visit: Yes Status: Acute Code(s): N17.9 - ACUTE KIDNEY FAILURE, UNSPECIFIED SNOMED Code(s): 31738401 (2) Anemia Current Visit: Yes Status: Acute Code(s): D64.9 - ANEMIA, UNSPECIFIED SNOMED Code(s): 616433672 (3) Diabetic ulcer of right foot Current Visit: Yes Status: Acute Code(s): E11.621 - TYPE 2 DIABETES MELLITUS WITH FOOT ULCER; L97.519 - NON-PRS CHRONIC ULCER OTH PRT RIGHT FOOT W UNSP SEVERITY SNOMED Code(s): 311268312 (4) Foot fracture, right Current Visit: Yes Status: Acute Code(s): S92.901A - UNSP FRACTURE OF RIGHT FOOT, INIT ENCNTR FOR CLOSED FRACTURE SNOMED Code(s): 59139694 Plan: #1. Patient is status post bedside I&D by vascular surgery. Patient reports improvement in symptoms. #2. No surgical intervention planned from an orthopedic standpoint. Patient may follow up on an as needed basis.
--- NOTE | 2017-10-12 15:44 | MR ---
EXAMINATION TYPE: MR foot RT wo con DATE OF EXAM: 10/12/2017 COMPARISON: NONE HISTORY: osteomyelitis in charcot foot Standard multiplanar, multisequence MRI departmental protocol of the right foot was performed. Multiplanar, multisequence images of the right foot were acquired. Diffusion weighted imaging was per formed. The lack of contrast limits evaluation for osteomyelitis. FINDINGS: There is bone marrow edema noted to involve the talus, os calcis, osseous structures of the midfoot a nd metatarsals. There is bony collapse and disorganization noted compatible with Charcot joint. There is extensive surrounding edema with multiple fluid collections identified. I do not see evidence for cortical destruction to suggest osteomyelitis although the lack of contrast is a limiting factor. Co nsider WBC scan. Soft tissue ulceration at the plantar aspect of the foot. IMPRESSION: 1. Findings felt to reflect cellulitis with active Charcot joint. No definite evidence for osteomyel itis at this time although the lack of contrast examination is considered limiting. Consider further evaluation with WBC scan.
[2017-10-12 16:44] LABS: Glucose,Whole Blood 150 mg/dL (75-99)
[2017-10-12 16:47] LABS: Anti-DNA, DS unit <1.0 IU/mL; DNA Double-Stranded NEGATIVE (NEGATIVE)
[2017-10-12 16:49] LABS: Protein, Total 5.8 g/dL (6.2-8.2)
[2017-10-12 17:34] LABS: Hepatitis A Antibody IgM Non-Reactive (Non-Reactive); Hepatitis B Core IgM Non-Reactive (Non-Reactive)
--- NOTE | 2017-10-12 19:38 | PN ---
PROGRESS NOTE DATE OF SERVICE: 10/11/2017 PRESENTING COMPLAINT: Right foot abscess. INTERVAL HISTORY: This pleasant gentleman with uncontrolled diabetes with right Charcot foot presented with right foot abscess that was drained last night and this morning by Dr. Fan; significant amount of pus was obtained. He still has some pain. The patient also has renal failure. Hemoglobin was still down below 7 this morning. I did order another unit of blood. Patient is just feeling weak, tired. REVIEW OF SYSTEMS: Done for constitutional, cardiovascular, GI, pulmonary; relevant findings as above. CURRENT MEDICATIONS: Reviewed. They include IV Unasyn and IV daptomycin. PHYSICAL EXAMINATION: Temperature 99.6, pulse 75, respiration 16, blood pressure 121/59, pulse ox 91%. GENERAL APPEARANCE: Lying in bed, tired-appearing. EYES: Pupils equal. Conjunctivae normal. HEENT: External appearance of nose and ears normal. Oral cavity normal. NECK: JVD unable to assess. Mass not palpable. RESPIRATORY: Effort normal. LUNGS: Distant breath sounds. CARDIOVASCULAR: Heart sounds slightly distant. Edema present. ABDOMEN: Soft, nontender. Liver and spleen not palpable. PSYCHIATRY: Alert and oriented x3. Mood and affect normal. EXTREMITIES: Deformed right foot with tenderness. Dressing in place. INVESTIGATIONS: White count 11.7, hemoglobin 6.4, potassium 5, BUN 110, creatinine 5.70, bicarb 18. TIBC 164, iron saturation low at 6.10, ferritin 796. ASSESSMENT: 1. Right foot abscess in the setting of a Charcot foot causing sepsis from a foreign body, status post incision and drainage x2. Patient's MRI is showing some small fluid collection. Patient probably needs to go to the OR for closer cleaning of the wound if the foot needs to be salvaged. 2. Right Charcot foot secondary to diabetes. 3. Peripheral neuropathy secondary to diabetes. 4. Severe symptomatic anemia, likely secondary to chronic kidney disease. 5. Iron deficiency anemia. 6. Hyperkalemia due to chronic kidney disease. 7. Morbid obesity. 8. Obesity with body mass index of 39. 9. Essential hypertension. 10.Peptic ulcer disease. 11.Chronic kidney disease with possible mineral bone disease. 12.Hypoalbuminemia as an acute phase reactant. 13.Non-oliguric acute kidney injury, predominantly prerenal. 14.Chronic kidney disease, stage IIIB, secondary to diabetic kidney disease with baseline creatinine around 2.2. 15.Hyperphosphatemia; patient on Renvela. 16.Metabolic acidosis. PLAN: Continue current antibiotics. Did discuss with Dr. Onofre. Patient may need OR intervention to clean the wound out. I just saw the results of the MRI. Will increase patient's Levemir to 42 units and increase the NovoLog to 9 units. Continue with antibiotics. Will follow. MMODL / IJN: [id number] /
[2017-10-12] MEDS: ACETAMINOPHEN TAB 325 MG TAB PO PRN (20:50)
[2017-10-12 20:57] LABS: Glucose,Whole Blood 142 mg/dL (75-99)
[2017-10-12] MEDS ORDERED: INSULIN DETEMIR 100 UNIT/ML 10 ML VIAL SQ SCH (21:00)
--- NOTE | 2017-10-12 23:05 | P.PN ---
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 He was there is a tile that is broken but ended up causing an injury to his foot. He cared for the injury by cleansing it and applying antibiotic ointment and dressings. Despite this the foot quickly changed became very swollen painful and he developed fevers and chills and felt quite poorly overall. He went to his local hospital which point in time he was on evidence of sepsis as well as a acute renal failure and was transferred to our facility for further evaluation and potential hemodialysis. The patient was found evidence of significant swelling to the right lower extremity considerably greater than the left and consequently duplex was performed that showed no evidence of any deep venous thrombosis. With renal failure ultrasound was performed of the kidneys with no evidence of any obstructive process. Because of the wound and abscess on the right foot vascular surgery and infectious diseases consultation is requested. The patient has now had a bedside incision and drainage performed. If the outside hospital there was fever which is now improving. X-ray of the foot reveals evidence of a Charcot foot with potential fracture. The patient is feeling slightly better this evening and at this severe pain is improving after incision and drainage and receiving antibiotic therapy. 10/12/2017 [place] patient feeling somewhat better today. His pain is a bit better than admission. His MRI is complete that shows evidence of the recent infection but no obvious osteomyelitis was seen on the Charcot foot. Some fluid collections related possibly to the Charcot changes, not distinctly related as abscess. Patient continues to have acute on chronic renal failure followed by nephrology. Objective - Vital Signs Vital signs: Vital Signs Temp 99.8 F H 10/12/17 22:00 Pulse 77 10/12/17 22:00 Resp 18 10/12/17 22:00 BP 128/67 10/12/17 22:00 Pulse Ox 93 L 10/12/17 22:00 Intake & Output 10/12/17 10/12/17 10/13/17 06:59 18:59 06:59 Intake Total 1905 Output Total 400 215 550 Balance -400 1690 -550 Weight 131 kg Intake: IV 885 PRBC 310 bicarb and dextrose 575 Intake, IV Titration 350 Amount Ampicillin-Sulbactam 3 gm 100 In Sodium Chloride 0.9% 100 ml @ 100 mls/hr IVPB Q12H SRAVANI Rx#:[id number] DAPTOmycin 500 mg In 50 Sodium Chloride 0.9% 50 ml @ 100 mls/hr IV Q24H SRAVANI Rx#:[id number] Desmopressin Inj 39 mcg 50 In Sodium Chloride 0.9% 50 ml @ 200 mls/hr IVPB ONCE ONE Rx#:[id number] Dextrose 5% in Water 1, 150 000 ml @ 75 mls/hr IV . [id number] SRAVANI with Sodium Bicarb (1 Meq/ml) 150 ml Rx#:[id number] Oral 360 Blood Product 310 Rc As-1 Unit 310 [id number] Output: Urine 400 215 550 Other: Voiding Method Toilet Toilet Urinal # Voids 0 - Exam 52-year-old male who relates he is more comfortable now than prior. Fevers improved and severe pain to the foot is improved HEENT: Anicteric conjunctiva are pink and moist nasal mucosa grossly intact without significant lesions, there is no thrush. Neck: The neck is supple without significant lymphadenopathy or thyromegaly. Lungs: Symmetrical air entry is noted, no wheezing few basilar crackles are heard. No dullness egophony or bronchial sounds are noted Heart: Regular rate and rhythm with an audible S1-S2, no S3 positive S4. There is no significant murmur click or rub, PMI was nondisplaced. Abdomen: Obese, Positive bowel sounds soft and nontender without palpable masses or organomegaly. There was no guarding or rebound. Extremities: The upper extremities have excellent pulses they are symmetric, no significant petechiae or telangiectasia. No splinter hemorrhages were noted. The left lower extremity has no open ulcerations at this time. There is very minimal edema has a compression stocking in place. Right lower extremity is evidence of the extensive edema from the foot to above the knee. The surgical dressing was changed by the surgeon and other than some bloody drainage there are no acute changes to that site. The foot is less tender. And there is less swelling. Neuro: Awake alert oriented to person place and time. There are no acute new gross focal sensory motor deficits. - Labs CBC & Chem 7: 10/12/17 05:40 10/12/17 18:22 Labs: Abnormal Lab Results - Last 24 Hours (Table) 10/10/17 10/11/17 10/12/17 Range/Units 15:43 21:20 05:40 WBC (3.8-10.6) k/uL RBC (4.30-5.90) m/uL Hgb (13.0-17.5) gm/dL Hct (39.0-53.0) % RDW (11.5-15.5) % Neutrophils # (1.3-7.7) k/uL Lymphocytes # (1.0-4.8) k/uL ESR (0-15) mm/hr Potassium (3.5-5.1) mmol/L Carbon Dioxide (22-30) mmol/L BUN (9-20) mg/dL Creatinine (0.66-1.25) mg/dL Glucose (74-99) mg/dL POC Glucose (mg/dL) (75-99) mg/dL Iron 10 L (65-175) ug/dL TIBC 164 L (228-460) ug/dL Iron Saturation 6.10 L (15.00-50.00) Ferritin 796.9 H (22.0-322.0) ng/mL C-Reactive Protein 218.6 H (<10.0) mg/L U Random Total Protein (<12) mg/dL Crossmatch See Detail 10/12/17 10/12/17 10/12/17 Range/Units 05:40 05:40 05:40 WBC 11.7 H (3.8-10.6) k/uL RBC 2.37 L (4.30-5.90) m/uL Hgb 6.4 L* (13.0-17.5) gm/dL Hct 20.5 L (39.0-53.0) % RDW 16.6 H (11.5-15.5) % Neutrophils # 10.3 H (1.3-7.7) k/uL Lymphocytes # 0.6 L (1.0-4.8) k/uL ESR >140 H (0-15) mm/hr Potassium 5.9 H (3.5-5.1) mmol/L Carbon Dioxide 18 L (22-30) mmol/L BUN 110 H* (9-20) mg/dL Creatinine 5.70 H* (0.66-1.25) mg/dL Glucose 217 H (74-99) mg/dL POC Glucose (mg/dL) (75-99) mg/dL Iron (65-175) ug/dL TIBC (228-460) ug/dL Iron Saturation (15.00-50.00) Ferritin (22.0-322.0) ng/mL C-Reactive Protein (<10.0) mg/L U Random Total Protein (<12) mg/dL Crossmatch 10/12/17 10/12/17 10/12/17 Range/Units 05:54 11:44 16:42 WBC (3.8-10.6) k/uL RBC (4.30-5.90) m/uL Hgb (13.0-17.5) gm/dL Hct (39.0-53.0) % RDW (11.5-15.5) % Neutrophils # (1.3-7.7) k/uL Lymphocytes # (1.0-4.8) k/uL ESR (0-15) mm/hr Potassium (3.5-5.1) mmol/L Carbon Dioxide (22-30) mmol/L BUN (9-20) mg/dL Creatinine (0.66-1.25) mg/dL Glucose (74-99) mg/dL POC Glucose (mg/dL) 263 H 240 H 150 H (75-99) mg/dL Iron (65-175) ug/dL TIBC (228-460) ug/dL Iron Saturation (15.00-50.00) Ferritin (22.0-322.0) ng/mL C-Reactive Protein (<10.0) mg/L U Random Total Protein (<12) mg/dL Crossmatch 10/12/17 10/12/17 Range/Units 19:05 20:56 WBC (3.8-10.6) k/uL RBC (4.30-5.90) m/uL Hgb (13.0-17.5) gm/dL Hct (39.0-53.0) % RDW (11.5-15.5) % Neutrophils # (1.3-7.7) k/uL Lymphocytes # (1.0-4.8) k/uL ESR (0-15) mm/hr Potassium (3.5-5.1) mmol/L Carbon Dioxide (22-30) mmol/L BUN (9-20) mg/dL Creatinine (0.66-1.25) mg/dL Glucose (74-99) mg/dL POC Glucose (mg/dL) 142 H (75-99) mg/dL Iron (65-175) ug/dL TIBC (228-460) ug/dL Iron Saturation (15.00-50.00) Ferritin (22.0-322.0) ng/mL C-Reactive Protein (<10.0) mg/L U Random Total Protein 101 H (<12) mg/dL Crossmatch Microbiology - Last 24 Hours (Table) 10/12/17 08:00 Gram Stain - Preliminary Foot - Right Wound Culture - Preliminary Laboratory Results WBC 11.7 k/uL (3.8-10.6) H 10/12/17 05:40 RBC 2.37 m/uL (4.30-5.90) L 10/12/17 05:40 Hgb 6.4 gm/dL (13.0-17.5) L* 10/12/17 05:40 Hct 20.5 % (39.0-53.0) L 10/12/17 05:40 MCV 86.6 fL (80.0-100.0) 10/12/17 05:40 MCH 26.9 pg (25.0-35.0) 10/12/17 05:40 MCHC 31.0 g/dL (31.0-37.0) 10/12/17 05:40 RDW 16.6 % (11.5-15.5) H 10/12/17 05:40 Plt Count 268 k/uL (150-450) 10/12/17 05:40 Neutrophils % 88 % 10/12/17 05:40 Lymphocytes % 5 % 10/12/17 05:40 Monocytes % 5 % 10/12/17 05:40 Eosinophils % 1 % 10/12/17 05:40 Basophils % 0 % 10/12/17 05:40 Neutrophils # 10.3 k/uL (1.3-7.7) H 10/12/17 05:40 Lymphocytes # 0.6 k/uL (1.0-4.8) L 10/12/17 05:40 Monocytes # 0.6 k/uL (0-1.0) 10/12/17 05:40 Eosinophils # 0.1 k/uL (0-0.7) 10/12/17 05:40 Basophils # 0.0 k/uL (0-0.2) 10/12/17 05:40 Hypochromasia Slight 10/12/17 05:40 Anisocytosis Slight 10/12/17 05:40 ESR >140 mm/hr (0-15) H 10/12/17 05:40 Sodium 139 mmol/L (137-145) 10/12/17 05:40 Potassium 5.1 mmol/L (3.5-5.1) 10/12/17 18:22 Chloride 105 mmol/L (98-107) 10/12/17 05:40 Carbon Dioxide 18 mmol/L (22-30) L 10/12/17 05:40 Anion Gap 16 mmol/L 10/12/17 05:40 BUN 110 mg/dL (9-20) H* 10/12/17 05:40 Creatinine 5.70 mg/dL (0.66-1.25) H* 10/12/17 05:40 Est GFR (CKD-EPI)AfAm 12 (>60 ml/min/1.73 sqM) 10/12/17 05:40 Est GFR (CKD-EPI)NonAf 10 (>60 ml/min/1.73 sqM) 10/12/17 05:40 Glucose 217 mg/dL (74-99) H 10/12/17 05:40 POC Glucose (mg/dL) 142 mg/dL (75-99) H 10/12/17 20:56 POC Glu Beam House Inspector [place] Amin 10/12/17 20:56 Plasma Lactic Acid [place]arte <0.5 mmol/L (0.7-2.0) L 10/11/17 21:15 Calcium 9.2 mg/dL (8.4-10.2) 10/12/17 05:40 Phosphorus 6.0 mg/dL (2.5-4.5) H 10/11/17 06:49 Iron 10 ug/dL (65-175) L 10/12/17 05:40 TIBC 164 ug/dL (228-460) L 10/12/17 05:40 Iron Saturation 6.10 (15.00-50.00) L 10/12/17 05:40 Ferritin 796.9 ng/mL (22.0-322.0) H 10/12/17 05:40 Total Bilirubin 0.5 mg/dL (0.2-1.3) 10/11/17 06:49 AST 16 U/L (17-59) L 10/11/17 06:49 ALT 30 U/L (21-72) 10/11/17 06:49 Alkaline Phosphatase 122 U/L (38-126) 10/11/17 06:49 C-Reactive Protein 218.6 mg/L (<10.0) H 10/11/17 21:20 Total Protein 6.2 g/dL (6.3-8.2) L 10/11/17 06:49 Albumin 2.9 g/dL (3.5-5.0) L 10/11/17 06:49 PTH Intact 809.5 pg/mL (14.0-72.0) H 10/11/17 06:49 Urine Color Yellow 10/11/17 21:12 Urine Appearance Cloudy (Clear) 10/11/17 21:12 Urine pH 5.0 (5.0-8.0) 10/11/17 21:12 Ur Specific [place] 1.014 (1.001-1.035) 10/11/17 21:12 Urine Protein 2+ (Negative) H 10/11/17 21:12 Urine Glucose (UA) Negative (Negative) 10/11/17 21:12 Urine Ketones Negative (Negative) 10/11/17 21:12 Urine Blood Negative (Negative) 10/11/17 21:12 Urine Nitrite Negative (Negative) 10/11/17 21:12 Urine Bilirubin Negative (Negative) 10/11/17 21:12 Urine Urobilinogen <2.0 mg/dL (<2.0) 10/11/17 21:12 Ur Leukocyte Esterase Negative (Negative) 10/11/17 21:12 Urine RBC 6 /hpf (0-5) H 10/11/17 21:12 Urine WBC 10 /hpf (0-5) H 10/11/17 21:12 Urine Bacteria Occasional /hpf (None) H 10/11/17 21:12 Urine Mucus Rare /hpf (None) H 10/11/17 21:12 Urine Yeast (Budding) Few /hpf (None) H 10/11/17 21:12 Urine Eosinophils 0 % 10/12/17 19:05 Ur Random Creatinine 140.4 mg/dL 10/12/17 19:05 U Random Total Protein 101 mg/dL (<12) H 10/12/17 19:05 Vancomycin Trough 27.5 ug/mL 10/12/17 05:40 Blood Type A Positive 10/10/17 15:43 Blood Type Recheck No 10/10/17 15:43 Antibody Screen NEGATIVE 10/10/17 15:43 Crossmatch See Detail 10/10/17 15:43 Spec Expiration Date 10/13/2017 - 2343 10/10/17 15:43 Microbiology 10/12/17 08:00 Foot - Right Gram Stain - Preliminary 10/12/17 08:00 Foot - Right Wound Culture - Preliminary Assessment and Plan (1) Acute renal failure Current Visit: Yes Status: Acute Code(s): N17.9 - ACUTE KIDNEY FAILURE, UNSPECIFIED SNOMED Code(s): 01507828 (2) Diabetic ulcer of right foot Narrative/Plan: 52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 This started with an injury to his right foot by cutting tile. Within several days started to feel poorly with fevers chills and progressive malaise. Relates that when he feels poorly sometimes his duodenal ulcer will bleed. Will become anemic. He did present to his local emergency room where he was found evidence of significant anemia with a hemoglobin less than 7. Acute renal failure with a creatinine of 5.2. He was transferred to [facility] for further intervention. He was found evidence of a significant abscess on the plantar surface of the right foot and consequently had an incision and drainage performed by vascular surgery. The patient is feeling a bit better this evening. He has received antibiotics with Unasyn and a dose of vancomycin. Because of his acute renal failure vancomycin is discontinued and we'll switch him to daptomycin. Goal be to avoid nephrotoxic agents as his kidney function is attempting to recover. Nephrology following. Hopefully he will not need to progress on to hemodialysis. Obtain MRI to evaluate for osteomyelitis of the charot foot which by x-ray has fractures unable to determine acuity and infection. Await culture results to help direct the course of antibiotic therapy which I most likely will be intravenous given the complex foot infection and goal for foot and leg salvage. 10/12/2017 reveals the patient to be feeling slightly better. He's been evaluated by nephrology and continues to have acute and chronic renal failure his creatinine increased back up to 5.7. There is concerned he will need renal replacement therapy. Antibiotic therapy with Unasyn and daptomycin been utilize all cultures from process. We'll ask for vascular surgery to evaluate the MRI to ensure that he does not need further surgical debridement. It is noted that the debridement originally performed did go to bony structures and constantly we'll plan a protracted course of antibiotic therapy for foot salvage. He will definitely an offloading boot of some type, [place] walker would be ideal Current Visit: Yes Status: Acute Code(s): E11.621 - TYPE 2 DIABETES MELLITUS WITH FOOT ULCER; L97.519 - NON-PRS CHRONIC ULCER OTH PRT RIGHT FOOT W UNSP SEVERITY SNOMED Code(s): 070333883 (3) Acute blood loss anemia Current Visit: Yes Status: Acute Code(s): D62 - ACUTE POSTHEMORRHAGIC ANEMIA SNOMED Code(s): 593433851
[2017-10-13 06:24] LABS: Glucose,Whole Blood 147 mg/dL (75-99)
[2017-10-13] MEDS: DEXTROSE 5% IN WATER 1,000 ML with SODIUM BICARB (1 MEQ/ML) 150 ML IV SCH ×2 (06:24→08:33)
[2017-10-13] MEDS: PANTOPRAZOLE 40 MG TABLET PO SCH (06:52)
[2017-10-13] MEDS: CARVEDILOL 12.5 MG TAB PO SCH ×2 (06:52→17:22)
[2017-10-13] MEDS: ACETAMINOPHEN TAB 325 MG TAB PO PRN ×3 (06:53→20:29)
[2017-10-13] MEDS: SEVELAMER 800 MG TAB PO SCH ×3 (06:53→17:22)
[2017-10-13] MEDS: INSULIN ASPART 100 UNIT/ML 1 ML 10 ML VIAL SQ SCH ×6 (07:16→18:52)
[2017-10-13 07:37] LABS: Calcium 9.6 mg/dL (8.4-10.2); Potassium 4.9 mmol/L (3.5-5.1)
[2017-10-13] MEDS: ASCORBIC ACID 500 MG TAB PO SCH ×2 (08:33→20:31)
[2017-10-13] MEDS: AMPICILLIN-SULBACTAM 3 GM in SODIUM CHLORIDE 0.9% 100 ML IVPB SCH ×2 (08:33→21:20)
[2017-10-13] MEDS: SODIUM BICARBONATE TAB 650 MG TAB PO SCH ×2 (08:33→20:31)
[2017-10-13] MEDS ORDERED: ERGOCALCIFEROL 50,000 UNIT CAP PO SCH (09:00)
--- NOTE | 2017-10-13 09:41 | P.PN ---
Subjective Patient is seen in follow-up for acute kidney injury on chronic kidney disease. Patient has chronic kidney disease stage IIIB/4 secondary to diabetic kidney disease with baseline creatinine near 2.2. His creatinine peaked at 5.7 this admission and is down to 4.3 today. He denies any nausea or vomiting. Oral intake is good. He is currently being treated for right foot infection. Hemoglobin was down to 6.4 yesterday for which he did receive blood transfusion. Denies any melena or hematochezia. Potassium level is now in the normal range. He is nonoliguric. Vital signs are stable. General: The patient appeared well nourished and normally developed. HEENT: Head exam is unremarkable. Neck is without jugular venous distension. LUNGS: Lungs are clear to auscultation and percussion. Breath sounds decreased. HEART: Rate and Rhythm are regular. First and second heart sounds normal. No murmurs, rubs or gallops. ABDOMEN: Abdominal exam reveals normal bowel sounds. Non-tender and non- distended. No evidence of peritonitis. EXTREMITITES: No clubbing, cyanosis, or edema. No obvious drainage noted from the right foot. Objective - Vital Signs Vital signs: Vital Signs Temp 99.7 F H 10/13/17 04:00 Pulse 69 10/13/17 04:00 Resp 18 10/13/17 04:00 BP 169/74 10/13/17 04:00 Pulse Ox 91 L 10/13/17 04:00 Intake & Output 10/12/17 10/13/17 10/13/17 18:59 06:59 18:59 Intake Total 1905 0 Output Total 215 750 Balance 1690 -750 0 Weight 136 kg Intake: IV 885 PRBC 310 bicarb and dextrose 575 Intake, IV Titration 350 0 Amount Ampicillin-Sulbactam 3 gm 100 In Sodium Chloride 0.9% 100 ml @ 100 mls/hr IVPB Q12H SRAVANI Rx#:[id number] DAPTOmycin 500 mg In 50 Sodium Chloride 0.9% 50 ml @ 100 mls/hr IV Q24H SRAVANI Rx#:[id number] DAPTOmycin 500 mg In 0 Sodium Chloride 0.9% 50 ml @ 100 mls/hr IV Q48H SRAVANI Rx#:[id number] Desmopressin Inj 39 mcg 50 In Sodium Chloride 0.9% 50 ml @ 200 mls/hr IVPB ONCE ONE Rx#:[id number] Dextrose 5% in Water 1, 150 000 ml @ 75 mls/hr IV . [id number] SRAVANI with Sodium Bicarb (1 Meq/ml) 150 ml Rx#:[id number] Oral 360 Blood Product 310 Rc As-1 Unit 310 [id number] Output: Urine 215 750 Other: Voiding Method Toilet Urinal # Voids 1 # Bowel Movements 1 - Labs CBC & Chem 7: 10/12/17 05:40 10/13/17 06:16 Labs: Abnormal Lab Results - Last 24 Hours (Table) 10/10/17 10/12/17 10/12/17 Range/Units 15:43 05:40 09:59 Carbon Dioxide (22-30) mmol/L BUN (9-20) mg/dL Creatinine (0.66-1.25) mg/dL Glucose (74-99) mg/dL POC Glucose (mg/dL) (75-99) mg/dL Iron 10 L (65-175) ug/dL TIBC 164 L (228-460) ug/dL Iron Saturation 6.10 L (15.00-50.00) Ferritin 796.9 H (22.0-322.0) ng/mL Total Protein (PEP) (6.2-8.2) g/dL Vitamin D 25-Hydroxy 9.4 L (30.0-100.0) ng/mL U Random Total Protein (<12) mg/dL Crossmatch See Detail 10/12/17 10/12/17 10/12/17 Range/Units 09:59 11:44 16:42 Carbon Dioxide (22-30) mmol/L BUN (9-20) mg/dL Creatinine (0.66-1.25) mg/dL Glucose (74-99) mg/dL POC Glucose (mg/dL) 240 H 150 H (75-99) mg/dL Iron (65-175) ug/dL TIBC (228-460) ug/dL Iron Saturation (15.00-50.00) Ferritin (22.0-322.0) ng/mL Total Protein (PEP) 5.8 L (6.2-8.2) g/dL Vitamin D 25-Hydroxy (30.0-100.0) ng/mL U Random Total Protein (<12) mg/dL Crossmatch 03/28/18 03/28/18 03/29/18 Range/Units 19:05 20:56 06:16 Carbon Dioxide 21 L (22-30) mmol/L BUN 117 H* (9-20) mg/dL Creatinine 4.33 H (0.66-1.25) mg/dL Glucose 117 H (74-99) mg/dL POC Glucose (mg/dL) 142 H (75-99) mg/dL Iron (65-175) ug/dL TIBC (228-460) ug/dL Iron Saturation (15.00-50.00) Ferritin (22.0-322.0) ng/mL Total Protein (PEP) (6.2-8.2) g/dL Vitamin D 25-Hydroxy (30.0-100.0) ng/mL U Random Total Protein 101 H (<12) mg/dL Crossmatch 10/13/17 Range/Units 06:20 Carbon Dioxide (22-30) mmol/L BUN (9-20) mg/dL Creatinine (0.66-1.25) mg/dL Glucose (74-99) mg/dL POC Glucose (mg/dL) 147 H (75-99) mg/dL Iron (65-175) ug/dL TIBC (228-460) ug/dL Iron Saturation (15.00-50.00) Ferritin (22.0-322.0) ng/mL Total Protein (PEP) (6.2-8.2) g/dL Vitamin D 25-Hydroxy (30.0-100.0) ng/mL U Random Total Protein (<12) mg/dL Crossmatch Microbiology - Last 24 Hours (Table) 10/12/17 08:00 Gram Stain - Preliminary Foot - Right Wound Culture - Preliminary 10/11/17 22:28 Blood Culture - Preliminary Blood No Growth after 24 hours 10/11/17 21:20 Blood Culture - Preliminary Blood No Growth after 24 hours Assessment and Plan Plan: Assessment: #1. Nonoliguric acute kidney injury most to prerenal secondary to acute anemia and further worsened with the use of diuretics and Cozaar. Creatinine peaked at 5.7 this admission and is down to 4.33 today. No evidence of hydronephrosis on renal ultrasound. No evidence of urinary retention. He does have proteinuria and hematuria on UA. Concern for GN as well. UPC 0.7. Urine eosinophils negative. #2. Chronic kidney disease stage IIIB secondary to diabetic kidney disease with baseline creatinine near 2.2. #3. Acute blood loss anemia status post blood transfusion. Hemoglobin down to 6.4 as of October 12. #4. Hyperkalemia secondary to acute kidney injury, metabolic acidosis and concern for GI bleed. Further worsened with the use of Cozaar. Improved. #5. Metabolic acidosis secondary to acute kidney injury. Improved. #6. Right foot ulcer maintained on IV antibiotics per infectious disease recommendations. #7. Hypertension with chronic kidney disease. Currently controlled. #8. Hyperphosphatemia secondary to acute kidney injury/chronic kidney disease maintained on Renvela. #9. Insulin-dependent diabetes mellitus. #10. Chronic kidney disease mineral bone disease maintained on Drisdol and calcitriol. Plan: Maintain isotonic sodium bicarbonate drip to be run at 75 mL an hour. Low potassium diet. Avoid nephrotoxic agents and hypotensive episodes. Diuretics and Cozaar held for now. Maintain oral sodium bicarbonate 1300 mg twice daily. Follow-up serologies.. Repeat electrolytes in the morning. Continue to monitor renal function and urine output. No urgent need for renal replacement therapy at this time.
--- NOTE | 2017-10-13 09:57 | PN ---
PROGRESS NOTE This gentleman came with infected right foot. For that, patient had debridement and I and D. Culture report is pending. The patient is on IV antibiotic under care of Infectious Disease. Today we have changed the dressing. Wound looks much better and we have been using Aquacel Silver. We will continue. We will make arrangement for the wound VAC and follow in the wound clinic. In the meantime, we will continue with antibiotic and local wound care. MMODL / IJN: [id number] /
[2017-10-13 10:03] LABS: Anisocytosis Slight; Basophils % (A) 0 %; Eosinophils # (A) 0.3 k/uL (0-0.7); Eosinophils % (A) 3 %; HCT 21.7 % (39.0-53.0); Hypochromasia Slight; Lymphocytes # (A) 1.1 k/uL (1.0-4.8); Lymphocytes % (A) 10 %; MCH 27.2 pg (25.0-35.0); MCHC 31.8 g/dL (31.0-37.0); MCV 85.3 fL (80.0-100.0); Mean Platelet Volume 7.4; Monocytes # (A) 0.6 k/uL (0-1.0); Monocytes % (A) 5 %; Neutrophils # (A) 8.3 k/uL (1.3-7.7); Neutrophils % (A) 80 %; Platelet Count 290 k/uL (150-450); RBC 2.54 m/uL (4.30-5.90); RDW 16.2 % (11.5-15.5); WBC 10.5 k/uL (3.8-10.6)
[2017-10-13 10:08] LABS: HGB 6.9 gm/dL (13.0-17.5)
[2017-10-13 11:22] LABS: Glucose,Whole Blood 131 mg/dL (75-99)
--- NOTE | 2017-10-13 13:40 | P.CONS ---
History of Present Illness - Reason for Consult Consult date: 10/13/17 anemia Requesting physician: Ruben Ruiz - History of Present Illness 52-year-old male patient of Dr. Hollingsworth with a history of bleeding peptic ulcer disease, anemia, hypertension, diabetes mellitus, chronic disease stage III B baseline creatinine around 2.2 admitted with acute kidney injury as well as infected right foot wound secondary to recent injury fall status post incision and drainage. Creatinine peaked at 5.7 presently 4.33 today. Requested for anemia. Initial hemoglobin 6.9 he has received 3 units of blood current hemoglobin is 6.9. Patient was not symptomatic he denies shortness of breath or chest pain. MCV 85. Platelet 275. ESR greater than 140. Iron 11. TIBC 177. Iron saturation 6%. Ferritin 11. LFTs within normal limits. He has a history of anemia requiring oral iron supplementation as well as blood transfusions. His last blood transfusion was in June 2017. Upon review of medical records no comparative CBC with the last few years to compare to his admission CBC. He was taking oral iron sedimentation prior to admission. He states about 5 years ago he was admitted with bleeding peptic ulcer disease with a hemoglobin in the 3 range received blood transfusion and was in the ICU setting. He's had a recent surveillance EGD within the last 3-[address] [place] [address] Belle and 2 his memory was unremarkable. Last colonoscopy he thinks Dr. Maldonado performed 2 years ago in [place] again unremarkable. He presently denies overt bleeding such as hematemesis hematochezia or melena. Denies epigastric or abdominal pain. No weight loss. Review of Systems Constitutional: Denies fever, chills, sweats, weight gain, or loss. HEENT: Negative for migraines, blurred vision or loss, earaches, drainage, tinnitus, oral mucosal lesions, dysphagia, or odynophagia. Cardiac: Hypertension. Negative for chest pain, arrhythmias, or palpitation. Respiratory: Negative for shortness of breath, hemoptysis, cough, or sputum production. Gastrointestinal: See HPI for pertinent findings. Genitourinary: Negative for hematuria, urgency, frequency, polyuria, dysuria, or penile discharge. Musculoskeletal: Negative for muscle aches, swelling, arthritis, and arthralgias. Neurologic: Negative for stroke or TIA. Endocrine: Diabetes mellitus. Negative for thyroid problems. Nephrology: Chronic disease stage III B Skin: Negative for rash or itching. Psychiatric: Negative history for depression and anxiety Past Medical History Past Medical History: Diabetes Mellitus, Hypertension, Vascular Disorder Additional Past Medical History / Comment(s): chonic anemia, kidney disease, heart mumur, bleeding ulcer History of Any Multi-Drug Resistant Organisms: None Reported Past Surgical History: Hernia Repair Additional Past Surgical History / Comment(s): eye surgery Past Anesthesia/Blood Transfusion Reactions: No Reported Reaction Past Psychological History: No Psychological Hx Reported Additional Psychological History / Comment(s): . 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 No animals in the home. 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 2 children still at home Smoking Status: Never smoker Past Alcohol Use History: Rare Medications and Allergies Home Medications Medication Instructions Recorded Confirmed Type Ascorbic Acid [Vitamin C] 500 mg PO BID 10/10/17 10/10/17 History Carvedilol [Coreg] 12.5 mg PO BID 10/10/17 10/10/17 History Chromium Picolinate 1,000 mcg PO DAILY 10/10/17 10/10/17 History Ferrous Sulfate [Feosol] 325 mg PO BID 10/10/17 10/10/17 History Furosemide [Lasix] 40 mg PO HS 10/10/17 10/10/17 History Furosemide [Lasix] 60 mg PO QAM 10/10/17 10/10/17 History Insulin Glargine,Hum.rec.anlog 38 - 40 units SQ HS 10/10/17 10/10/17 History [Toujeo Solostar] Losartan Potassium [Cozaar] 100 mg PO DAILY 10/10/17 10/10/17 History Multivitamin [Men's Multi-Vitamin] 1 tab PO DAILY 10/10/17 10/10/17 History [place]-3 Fatty Acids/Fish Oil [Fish 1 cap PO DAILY 10/10/17 10/10/17 History Oil 1,000 mg Softgel] cloNIDine HCL [Catapres] 0.1 mg PO BID 10/10/17 10/10/17 History Allergies Allergy/AdvReac Type Severity Reaction Status Date / Time No Known Allergies Allergy Verified 10/10/17 16:22 Physical Exam Vitals: Vital Signs Temp Pulse Pulse Resp BP BP Pulse Ox 10/13/17 11:56 99.7 F H 75 147/70 90 L 03/29/18 11:26 99.3 F 68 156/74 91 L 10/13/17 11:16 99.3 F 74 138/67 92 L 10/13/17 08:00 98.6 F 74 132/66 90 L 10/13/17 04:00 99.7 F H 69 18 169/74 91 L 10/12/17 23:55 99.8 F H 74 18 135/58 93 L 10/12/17 22:00 99.8 F H 77 18 128/67 93 L 10/12/17 16:00 75 10/12/17 15:56 75 16 124/64 92 L 10/12/17 15:47 99.7 F H 75 16 124/64 92 L Intake and Output 10/12/17 10/13/17 10/13/17 22:59 06:59 14:59 Intake Total 1090 180 Output Total 550 200 Balance 540 -200 180 Intake: IV 760 PRBC 310 bicarb and dextrose 450 Intake, IV Titration 150 0 Amount Ampicillin-Sulbactam 3 gm 100 In Sodium Chloride 0.9% 100 ml @ 100 mls/hr IVPB Q12H [facility] Rx#:[id number] DAPTOmycin 500 mg In 0 Sodium Chloride 0.9% 50 ml @ 100 mls/hr IV Q48H [facility] Rx#:[id number] Desmopressin Inj 39 mcg 50 In Sodium Chloride 0.9% 50 ml @ 200 mls/hr IVPB ONCE ONE Rx#:[id number] Oral 180 180 Blood Product 0 Rc As-1 Unit 0 [id number] Output: Urine 550 200 Other: Voiding Method Urinal Urinal Urinal # Voids 1 # Bowel Movements 1 Weight 136 kg General appearance: The patient is alert, oriented, in no acute distress. HET: Head is normocephalic and atraumatic. Pupils are equal and reactive. Oropharynx is clear without lesions. Neck: Supple without lymphadenopathy. Trachea midline. Heart: S1 S2. Regular rate and rhythm. Lungs: No crackles or wheezes are heard. Abdomen: Soft, nontender, nondistended with bowel sounds. No peritoneal signs. No palpable organomegaly or masses. Extremities: Right foot dressing. Neurological: No focal deficits. Strength and sensation are grossly intact. Results CBC & Chem 7: 10/13/17 06:16 10/13/17 06:16 Labs: Abnormal Lab Results - Last 24 Hours (Table) 10/10/17 10/12/17 10/12/17 Range/Units 15:43 09:59 09:59 RBC (4.30-5.90) m/uL Hgb (13.0-17.5) gm/dL Hct (39.0-53.0) % RDW (11.5-15.5) % Neutrophils # (1.3-7.7) k/uL Carbon Dioxide (22-30) mmol/L BUN (9-20) mg/dL Creatinine (0.66-1.25) mg/dL Glucose (74-99) mg/dL POC Glucose (mg/dL) (75-99) mg/dL Total Protein (PEP) 5.8 L (6.2-8.2) g/dL Vitamin D 25-Hydroxy 9.4 L (30.0-100.0) ng/mL U Random Total Protein (<12) mg/dL Free [place] LC, Quant 16.30 H (0.33-1.94) mg/dL Free [place]ambda LC, Quant 11.70 H (0.57-2.63) mg/dL Crossmatch See Detail 10/12/17 10/12/17 10/12/17 Range/Units 16:42 19:05 20:56 RBC (4.30-5.90) m/uL Hgb (13.0-17.5) gm/dL Hct (39.0-53.0) % RDW (11.5-15.5) % Neutrophils # (1.3-7.7) k/uL Carbon Dioxide (22-30) mmol/L BUN (9-20) mg/dL Creatinine (0.66-1.25) mg/dL Glucose (74-99) mg/dL POC Glucose (mg/dL) 150 H 142 H (75-99) mg/dL Total Protein (PEP) (6.2-8.2) g/dL Vitamin D 25-Hydroxy (30.0-100.0) ng/mL U Random Total Protein 101 H (<12) mg/dL Free [place] LC, Quant (0.33-1.94) mg/dL Free Lambda LC, Quant (0.57-2.63) mg/dL Crossmatch 10/13/17 10/13/17 10/13/17 Range/Units 06:16 06:16 06:20 RBC 2.54 L (4.30-5.90) m/uL Hgb 6.9 L* (13.0-17.5) gm/dL Hct 21.7 L (39.0-53.0) % RDW 16.2 H (11.5-15.5) % Neutrophils # 8.3 H (1.3-7.7) k/uL Carbon Dioxide 21 L (22-30) mmol/L BUN 117 H* (9-20) mg/dL Creatinine 4.33 H (0.66-1.25) mg/dL Glucose 117 H (74-99) mg/dL POC Glucose (mg/dL) 147 H (75-99) mg/dL Total Protein (PEP) (6.2-8.2) g/dL Vitamin D 25-Hydroxy (30.0-100.0) ng/mL U Random Total Protein (<12) mg/dL Free [place] LC, Quant (0.33-1.94) mg/dL Free Lambda LC, Quant (0.57-2.63) mg/dL Crossmatch 10/13/17 Range/Units 11:20 RBC (4.30-5.90) m/uL Hgb (13.0-17.5) gm/dL Hct (39.0-53.0) % RDW (11.5-15.5) % Neutrophils # (1.3-7.7) k/uL Carbon Dioxide (22-30) mmol/L BUN (9-20) mg/dL Creatinine (0.66-1.25) mg/dL Glucose (74-99) mg/dL POC Glucose (mg/dL) 131 H (75-99) mg/dL Total Protein (PEP) (6.2-8.2) g/dL Vitamin D 25-Hydroxy (30.0-100.0) ng/mL U Random Total Protein (<12) mg/dL Free [place] LC, Quant (0.33-1.94) mg/dL Free [place]ambda LC, Quant (0.57-2.63) mg/dL Crossmatch Microbiology - Last 24 Hours (Table) 10/12/17 08:00 Gram Stain - Preliminary Foot - Right Wound Culture - Preliminary 10/11/17 22:28 Blood Culture - Preliminary Blood No Growth after 24 hours 10/11/17 21:20 Blood Culture - Preliminary Blood No Growth after 24 hours Assessment and Plan (1) Iron deficiency anemia Narrative/Plan: 52-year-old male with a history of chronic iron deficiency anemia requiring iron supplementation and blood transfusion presents with lower extremity wounds status post incision and drainage as well as acute kidney injury superimposed on chronic kidney disease. Possible acute blood loss with history of remote bleeding peptic ulcer disease approximate 5 years ago. Current Visit: Yes Status: Acute Code(s): D50.9 - IRON DEFICIENCY ANEMIA, UNSPECIFIED SNOMED Code(s): 94736876 (2) Chronic anemia Current Visit: Yes Status: Acute Code(s): D64.9 - ANEMIA, UNSPECIFIED SNOMED Code(s): 160943888 (3) Chronic kidney disease Current Visit: Yes Status: Acute Code(s): N18.9 - CHRONIC KIDNEY DISEASE, UNSPECIFIED SNOMED Code(s): 681675059 (4) Acute renal failure Current Visit: Yes Status: Acute Code(s): N17.9 - ACUTE KIDNEY FAILURE, UNSPECIFIED SNOMED Code(s): 41965050 (5) Diabetic ulcer of right foot Current Visit: Yes Status: Acute Code(s): E11.621 - TYPE 2 DIABETES MELLITUS WITH FOOT ULCER; L97.519 - NON-PRS CHRONIC ULCER OTH PRT RIGHT FOOT W UNSP SEVERITY SNOMED Code(s): 969259463 Plan: 1. Patient is scheduled for Duncan catheter tomorrow morning we'll proceed with EGD colonoscopy scheduled tomorrow afternoon. Nothing by mouth after midnight. CBC monitoring. The ditcher has discussed the risks, benefits and alternative therapies for the above-mentioned procedure and for both sedation/analgesia as well as necessary blood product administration, if indicated, as they pertain to this patient. The patient has indicated understanding and acceptance of the risks and procedures discussed. Thank you for this kind referral and the opportunity to participate in the care of your patient. This consultation was discussed with Dr. Maldonado. The impression and plan of care have been directed as dictated.
[2017-10-13 14:28] LABS: C-ANCA <1:20 Titer (<1:20); P-ANCA <1:20 Titer (<1:20)
[2017-10-13] MEDS ORDERED: PEG 3350-NA SULF,BICARB,CL/KCL 4,000 ML BOTTLE PO ONE (16:00)
[2017-10-13 16:38] LABS: Glucose,Whole Blood 95 mg/dL (75-99)
[2017-10-13 20:46] LABS: Glucose,Whole Blood 90 mg/dL (75-99)
--- NOTE | 2017-10-13 20:50 | P.PN ---
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 He was there is a tile that is broken but ended up causing an injury to his foot. He cared for the injury by cleansing it and applying antibiotic ointment and dressings. Despite this the foot quickly changed became very swollen painful and he developed fevers and chills and felt quite poorly overall. He went to his local hospital which point in time he was on evidence of sepsis as well as a acute renal failure and was transferred to our facility for further evaluation and potential hemodialysis. The patient was found evidence of significant swelling to the right lower extremity considerably greater than the left and consequently duplex was performed that showed no evidence of any deep venous thrombosis. With renal failure ultrasound was performed of the kidneys with no evidence of any obstructive process. Because of the wound and abscess on the right foot vascular surgery and infectious diseases consultation is requested. The patient has now had a bedside incision and drainage performed. If the outside hospital there was fever which is now improving. X-ray of the foot reveals evidence of a Charcot foot with potential fracture. The patient is feeling slightly better this evening and at this severe pain is improving after incision and drainage and receiving antibiotic therapy. 10/12/2017 patient feeling somewhat better today. His pain is a bit better than admission. His MRI is complete that shows evidence of the recent infection but no obvious osteomyelitis was seen on the Charcot foot. Some fluid collections related possibly to the Charcot changes, not distinctly related as abscess. Patient continues to have acute on chronic renal failure followed by nephrology. 10/13/2016patient remains anxious for his ability be discharged home. He over history of anemia requiring blood transfusion today, is to have acute renal failure although with some improvement. He has been seen by vascular surgery with no further plans of surgical intervention at this time. Objective - Vital Signs Vital signs: Vital Signs Temp 98.8 F 10/13/17 20:46 Pulse 76 10/13/17 20:46 Resp 18 10/13/17 20:46 BP 172/81 10/13/17 20:46 Pulse Ox 93 L 10/13/17 20:46 Intake & Output 10/13/17 10/13/17 10/14/17 06:59 18:59 06:59 Intake Total 1580 Output Total 750 1100 675 Balance -750 480 -675 Weight 136 kg Intake: IV 910 PRBC 310 bicarb and dextrose 600 Intake, IV Titration 0 Amount DAPTOmycin 500 mg In 0 Sodium Chloride 0.9% 50 ml @ 100 mls/hr IV Q48H [facility] Rx#:[id number] Oral 360 Blood Product 310 Rc As-1 Unit 310 [id number] Output: Urine 750 1100 675 Other: Voiding Method Urinal Urinal # Voids 1 # Bowel Movements 1 - Exam 52-year-old male who relates he is more comfortable now than prior. Fevers improved and severe pain to the foot is improved HEENT: Anicteric conjunctiva are pink and moist nasal mucosa grossly intact without significant lesions, there is no thrush. Neck: The neck is supple without significant lymphadenopathy or thyromegaly. Lungs: Symmetrical air entry is noted, no wheezing few basilar crackles are heard. No dullness egophony or bronchial sounds are noted Heart: Regular rate and rhythm with an audible S1-S2, no S3 positive S4. There is no significant murmur click or rub, PMI was nondisplaced. Abdomen: Obese, Positive bowel sounds soft and nontender without palpable masses or organomegaly. There was no guarding or rebound. Extremities: The upper extremities have excellent pulses they are symmetric, no significant petechiae or telangiectasia. No splinter hemorrhages were noted. The left lower extremity has no open ulcerations at this time. There is very minimal edema has a compression stocking in place. Right lower extremity is evidence of the extensive edema from the foot to above the knee. The surgical dressing was changed there is the large plantar ulceration and please see the nursing photography for its size, agree that there is bone palpable in the base of the ulcer. The foot is less tender. And there is less swelling. Neuro: Awake alert oriented to person place and time. There are no acute new gross focal sensory motor deficits. - Labs CBC & Chem 7: 10/13/17 06:16 10/13/17 06:16 Labs: Abnormal Lab Results - Last 24 Hours (Table) 10/10/17 10/12/17 10/12/17 Range/Units 15:43 09:59 09:59 RBC (4.30-5.90) m/uL Hgb (13.0-17.5) gm/dL Hct (39.0-53.0) % RDW (11.5-15.5) % Neutrophils # (1.3-7.7) k/uL Carbon Dioxide (22-30) mmol/L BUN (9-20) mg/dL Creatinine (0.66-1.25) mg/dL Glucose (74-99) mg/dL POC Glucose (mg/dL) (75-99) mg/dL Total Protein (PEP) 5.8 L (6.2-8.2) g/dL Vitamin D 25-Hydroxy 9.4 L (30.0-100.0) ng/mL Free [place] LC, Quant 16.30 H (0.33-1.94) mg/dL Free [place] LC, Quant 11.70 H (0.57-2.63) mg/dL Crossmatch See Detail 10/12/17 10/13/17 10/13/17 Range/Units 20:56 06:16 06:16 RBC 2.54 L (4.30-5.90) m/uL Hgb 6.9 L* (13.0-17.5) gm/dL Hct 21.7 L (39.0-53.0) % RDW 16.2 H (11.5-15.5) % Neutrophils # 8.3 H (1.3-7.7) k/uL Carbon Dioxide 21 L (22-30) mmol/L BUN 117 H* (9-20) mg/dL Creatinine 4.33 H (0.66-1.25) mg/dL Glucose 117 H (74-99) mg/dL POC Glucose (mg/dL) 142 H (75-99) mg/dL Total Protein (PEP) (6.2-8.2) g/dL Vitamin D 25-Hydroxy (30.0-100.0) ng/mL Free [place] LC, Quant (0.33-1.94) mg/dL Free [place] LC, Quant (0.57-2.63) mg/dL Crossmatch 10/13/17 10/13/17 Range/Units 06:20 11:20 RBC (4.30-5.90) m/uL Hgb (13.0-17.5) gm/dL Hct (39.0-53.0) % RDW (11.5-15.5) % Neutrophils # (1.3-7.7) k/uL Carbon Dioxide (22-30) mmol/L BUN (9-20) mg/dL Creatinine (0.66-1.25) mg/dL Glucose (74-99) mg/dL POC Glucose (mg/dL) 147 H 131 H (75-99) mg/dL Total Protein (PEP) (6.2-8.2) g/dL Vitamin D 25-Hydroxy (30.0-100.0) ng/mL Free [place] LC, Quant (0.33-1.94) mg/dL Free [place] LC, Quant (0.57-2.63) mg/dL Crossmatch Microbiology - Last 24 Hours (Table) 10/12/17 08:00 Gram Stain - Preliminary Foot - Right Wound Culture - Preliminary 10/11/17 22:28 Blood Culture - Preliminary Blood No Growth after 24 hours 10/11/17 21:20 Blood Culture - Preliminary Blood No Growth after 24 hours Laboratory Results WBC 10.5 k/uL (3.8-10.6) 10/13/17 06:16 RBC 2.54 m/uL (4.30-5.90) L 10/13/17 06:16 Hgb 6.9 gm/dL (13.0-17.5) L* 10/13/17 06:16 Hct 21.7 % (39.0-53.0) L 10/13/17 06:16 MCV 85.3 fL (80.0-100.0) 10/13/17 06:16 MCH 27.2 pg (25.0-35.0) 10/13/17 06:16 MCHC 31.8 g/dL (31.0-37.0) 10/13/17 06:16 RDW 16.2 % (11.5-15.5) H 10/13/17 06:16 Plt Count 290 k/uL (150-450) 10/13/17 06:16 Neutrophils % 80 % 10/13/17 06:16 Lymphocytes % 10 % 10/13/17 06:16 Monocytes % 5 % 10/13/17 06:16 Eosinophils % 3 % 10/13/17 06:16 Basophils % 0 % 10/13/17 06:16 Neutrophils # 8.3 k/uL (1.3-7.7) H 10/13/17 06:16 Lymphocytes # 1.1 k/uL (1.0-4.8) 10/13/17 06:16 Monocytes # 0.6 k/uL (0-1.0) 10/13/17 06:16 Eosinophils # 0.3 k/uL (0-0.7) 10/13/17 06:16 Basophils # 0.0 k/uL (0-0.2) 10/13/17 06:16 Hypochromasia Slight 10/13/17 06:16 Anisocytosis Slight 10/13/17 06:16 ESR >140 mm/hr (0-15) H 10/12/17 05:40 Sodium 141 mmol/L (137-145) 10/13/17 06:16 Potassium 4.9 mmol/L (3.5-5.1) 10/13/17 06:16 Chloride 103 mmol/L (98-107) 10/13/17 06:16 Carbon Dioxide 21 mmol/L (22-30) L 10/13/17 06:16 Anion Gap 17 mmol/L 10/13/17 06:16 BUN 117 mg/dL (9-20) H* 10/13/17 06:16 Creatinine 4.33 mg/dL (0.66-1.25) H 10/13/17 06:16 Est GFR (CKD-EPI)AfAm 17 (>60 ml/min/1.73 sqM) 10/13/17 06:16 Est GFR (CKD-EPI)NonAf 15 (>60 ml/min/1.73 sqM) 10/13/17 06:16 Glucose 117 mg/dL (74-99) H 10/13/17 06:16 POC Glucose (mg/dL) 90 mg/dL (75-99) 10/13/17 20:44 POC Glu Transistor Tester ID Roseline Zuniga 10/13/17 20:44 Plasma Lactic Acid [place] <0.5 mmol/L (0.7-2.0) L 10/11/17 21:15 Calcium 9.6 mg/dL (8.4-10.2) 10/13/17 06:16 Phosphorus 6.0 mg/dL (2.5-4.5) H 10/11/17 06:49 Iron 10 ug/dL (65-175) L 10/12/17 05:40 TIBC 164 ug/dL (228-460) L 10/12/17 05:40 Iron Saturation 6.10 (15.00-50.00) L 10/12/17 05:40 Ferritin 796.9 ng/mL (22.0-322.0) H 10/12/17 05:40 Total Bilirubin 0.5 mg/dL (0.2-1.3) 10/11/17 06:49 AST 16 U/L (17-59) L 10/11/17 06:49 ALT 30 U/L (21-72) 10/11/17 06:49 Alkaline Phosphatase 122 U/L (38-126) 10/11/17 06:49 C-Reactive Protein 218.6 mg/L (<10.0) H 10/11/17 21:20 Total Protein 6.2 g/dL (6.3-8.2) L 10/11/17 06:49 Total Protein (PEP) 5.8 g/dL (6.2-8.2) L 10/12/17 09:59 Albumin 2.9 g/dL (3.5-5.0) L 10/11/17 06:49 Vitamin D 25-Hydroxy 9.4 ng/mL (30.0-100.0) L 10/12/17 09:59 PTH Intact 809.5 pg/mL (14.0-72.0) H 10/11/17 06:49 Urine Color Yellow 10/11/17 21:12 Urine Appearance Cloudy (Clear) 10/11/17 21:12 Urine pH 5.0 (5.0-8.0) 10/11/17 21:12 Ur Specific [place] 1.014 (1.001-1.035) 10/11/17 21:12 Urine Protein 2+ (Negative) H 10/11/17 21:12 Urine Glucose (UA) Negative (Negative) 10/11/17 21:12 Urine Ketones Negative (Negative) 10/11/17 21:12 Urine Blood Negative (Negative) 10/11/17 21:12 Urine Nitrite Negative (Negative) 10/11/17 21:12 Urine Bilirubin Negative (Negative) 10/11/17 21:12 Urine Urobilinogen <2.0 mg/dL (<2.0) 10/11/17 21:12 Ur Leukocyte Esterase Negative (Negative) 10/11/17 21:12 Urine RBC 6 /hpf (0-5) H 10/11/17 21:12 Urine WBC 10 /hpf (0-5) H 10/11/17 21:12 Urine Bacteria Occasional /hpf (None) H 10/11/17 21:12 Urine Mucus Rare /hpf (None) H 10/11/17 21:12 Urine Yeast (Budding) Few /hpf (None) H 10/11/17 21:12 Urine Eosinophils 0 % 10/12/17 19:05 Ur Random Creatinine 140.4 mg/dL 10/12/17 19:05 U Random Total Protein 101 mg/dL (<12) H 10/12/17 19:05 Vancomycin Trough 27.5 ug/mL 10/12/17 05:40 BEATRICE Screen NEGATIVE (NEGATIVE) 10/12/17 09:59 c-ANCA <1:20 Titer (<1:20) 10/12/17 09:59 p-ANCA <1:20 Titer (<1:20) 10/12/17 09:59 Double Strand DNA Ab NEGATIVE (NEGATIVE) 10/12/17 09:59 Anti-DNA Ab Interp <1.0 IU/mL 10/12/17 09:59 Complement C3 142.0 mg/dL (80.0-207.0) 10/12/17 09:59 Complement C4 29.4 mg/dL (10.0-53.0) 10/12/17 09:59 Free [place] LC, Quant 16.30 mg/dL (0.33-1.94) H 10/12/17 09:59 Free [place] LC, Quant 11.70 mg/dL (0.57-2.63) H 10/12/17 09:59 Hepatitis A IgM Ab Non-Reactive (Non-Reactive) 10/12/17 09:59 Hep Bs Antigen Non-Reactive (Non-Reactive) 10/12/17 09:59 Hep B Core IgM Ab Non-Reactive (Non-Reactive) 10/12/17 09:59 Hep C IgG Ab Non-Reactive (Non-Reactive) 10/12/17 09:59 Blood Type A Positive 10/10/17 15:43 Blood Type Recheck No 10/10/17 15:43 Antibody Screen NEGATIVE 10/10/17 15:43 Crossmatch See Detail 10/10/17 15:43 Spec Expiration Date 10/13/2017 - 2343 10/10/17 15:43 Microbiology 10/12/17 08:00 Foot - Right Gram Stain - Preliminary 10/12/17 08:00 Foot - Right Wound Culture - Preliminary 10/11/17 22:28 Blood Blood Culture - Preliminary No Growth after 24 hours 10/11/17 21:20 Blood Blood Culture - Preliminary No Growth after 24 hours Assessment and Plan (1) Acute renal failure Current Visit: Yes Status: Acute Code(s): N17.9 - ACUTE KIDNEY FAILURE, UNSPECIFIED SNOMED Code(s): 54963198 (2) Diabetic ulcer of right foot Narrative/Plan: 52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 This started with an injury to his right foot by cutting tile. Within several days started to feel poorly with fevers chills and progressive malaise. Relates that when he feels poorly sometimes his duodenal ulcer will bleed. Will become anemic. He did present to his local emergency room where he was found evidence of significant anemia with a hemoglobin less than 7. Acute renal failure with a creatinine of 5.2. He was transferred to [facility] for further intervention. He was found evidence of a significant abscess on the plantar surface of the right foot and consequently had an incision and drainage performed by vascular surgery. The patient is feeling a bit better this evening. He has received antibiotics with Unasyn and a dose of vancomycin. Because of his acute renal failure vancomycin is discontinued and we'll switch him to daptomycin. Goal be to avoid nephrotoxic agents as his kidney function is attempting to recover. Nephrology following. Hopefully he will not need to progress on to hemodialysis. Obtain MRI to evaluate for osteomyelitis of the charot foot which by x-ray has fractures unable to determine acuity and infection. Await culture results to help direct the course of antibiotic therapy which I most likely will be intravenous given the complex foot infection and goal for foot and leg salvage. 10/12/2017 reveals the patient to be feeling slightly better. He's been evaluated by nephrology and continues to have acute and chronic renal failure his creatinine increased back up to 5.7. There is concerned he will need renal replacement therapy. Antibiotic therapy with Unasyn and daptomycin been utilize all cultures from process. We'll ask for vascular surgery to evaluate the MRI to ensure that he does not need further surgical debridement. It is noted that the debridement originally performed did go to bony structures and constantly we'll plan a protracted course of antibiotic therapy for foot salvage. He will definitely an offloading boot of some type, navajo walker would be ideal 10/13/2017 patient remains ill but improved. His creatinine is showing some improvement today down to 4.33 and nephrology is pleased. The patient however has ongoing anemia with hemoglobin low at 6.9.receiving packed red cells today. Ongoing supportive care. The patient has renal failure and constantly not a candidate for PICC line placement and consequently Duncan catheter has been requested for his outpatient intravenous antibiotic therapy.if this time likely will utilize Invanz for once a day therapy with a tremendous be done at home remedy to go to the local hospital. The medial offloading and a Roll-A-Bout has been requested, she utilize a walker when not on the Roll-A-Bout. Since wound VAC will be utilized is not a candidate for a navajo walker at this time Current Visit: Yes Status: Acute Code(s): E11.621 - TYPE 2 DIABETES MELLITUS WITH FOOT ULCER; L97.519 - NON-PRS CHRONIC ULCER OTH PRT RIGHT FOOT W UNSP SEVERITY SNOMED Code(s): 873122560 (3) Acute blood loss anemia Current Visit: Yes Status: Acute Code(s): D62 - ACUTE POSTHEMORRHAGIC ANEMIA SNOMED Code(s): 215960472
[2017-10-13] MEDS ORDERED: INSULIN DETEMIR 100 UNIT/ML 10 ML VIAL SQ SCH (21:00)
--- NOTE | 2017-10-13 21:06 | PN ---
PROGRESS NOTE DATE OF SERVICE: 10/12/17. CORRECTION: My note dictated on October 12, 2017 at 1857, date transcribed on October 12, 2017 at 1930. The correct date of service should read 10/12/2017. MMODL / IJN: [id number] /
--- NOTE | 2017-10-13 21:12 | PN ---
PROGRESS NOTE DATE OF SERVICE: October 13, 2017. PRESENT COMPLAINT: Right foot abscess. INTERVAL HISTORY: This patient with uncontrolled diabetes, right Charcot foot, presented with right foot abscess. It was again drained today by Dr. Fan and by Dr. Onofre. Pain is much better. Hemoglobin had still remained below 7. I ordered another unit of blood this morning. The patient tolerated a diet. Just feels weak and tired. REVIEW OF SYSTEMS: Done for constitutional, cardiovascular, GI, pulmonary; relevant findings as above. CURRENT MEDICATIONS: Reviewed that include IV Unasyn and IV daptomycin. PHYSICAL EXAMINATION: Afebrile. Pulse 75, respiration 16, blood pressure 147/70, pulse ox 98% on room air. General appearance: Lying in bed, tired appearing. Eyes pupils are equal. Conjunctivae normal. HEENT external appearance of nose and ears normal. Oral cavity normal. Neck JVD not raised. Mass not palpable. Respiratory effort normal. Lungs distant breath sounds. Cardiovascular: HEART: Heart sounds distant. Some edema. ABDOMEN: Soft, nontender. Liver and spleen not palpable. Psychiatry: Alert and oriented x3. Mood and affect normal. Extremity dressing over the right foot. INVESTIGATIONS: White count 10.5, hemoglobin 6.9, potassium 4.9, bicarb 21, BUN 117, creatinine 4.33. Accu-Cheks are noted. Wound cultures are pending. ASSESSMENT: 1. Right foot abscess in a setting of Charcot foot causing sepsis from a foreign body, status post I and D. 2. Right Charcot foot secondary to diabetes. 3. Peripheral neuropathy secondary to diabetes. 4. Severe symptomatic anemia likely secondary to chronic kidney disease. The patient does not seem to be responding to hemoglobin transfusion. Need to rule out a bleed or hemolysis. 5. Iron deficiency anemia. 6. Hyperkalemia due to chronic kidney disease, improved. 7. Morbid obesity. 8. Obesity; BMI 39. 9. Essential hypertension. 10.Peptic ulcer disease. 11.Chronic kidney disease with possible mineral bone disease. 12.Hypoalbuminemia as an acute phase reactant. 13.Nonoliguric acute kidney injury, predominantly prerenal. 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 15.Hyperphosphatemia. Patient on Renvela. 16.Metabolic acidosis. PLAN: I ordered another unit of blood. Creatinine slowly started to come down. I spoke with Dr. Onofre. Plan is the patient to get a Duncan catheter for antibiotics and initially the plan also get a wound VAC. 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 Hence dressing will be ordered by Dr. Onofre. We will decrease the patient's current dose of Levemir to 38. Follow. DAVID / JHN: [id number] /
[2017-10-14] MEDS: ACETAMINOPHEN TAB 325 MG TAB PO PRN (03:58)
[2017-10-14] MEDS: DEXTROSE 5% IN WATER 1,000 ML with SODIUM BICARB (1 MEQ/ML) 150 ML IV SCH (04:27)
[2017-10-14 07:06] LABS: Glucose,Whole Blood 106 mg/dL (75-99)
[2017-10-14] MEDS: INSULIN ASPART 100 UNIT/ML 1 ML 10 ML VIAL SQ SCH ×4 (07:17→11:41)
[2017-10-14] MEDS ORDERED: IV FLUID CONTINUATION 1,000 ML IV ONE (07:18)
[2017-10-14] MEDS ORDERED: MIDAZOLAM 2 MG/2 ML VIAL ONE (07:25)
[2017-10-14] MEDS ORDERED: MIDAZOLAM 2 MG/2 ML VIAL IV ONE (07:28)
[2017-10-14] MEDS ORDERED: LIDOCAINE 2% INJ 20 MG/ML SQ ONE ×2 (07:30)
[2017-10-14 07:45] VITALS: PULSE 71; RESP 16; TEMP 98.8
[2017-10-14] MEDS ORDERED: IODIXANOL 270 MG/ML 50 ML ML IV ONE (07:45)
[2017-10-14] MEDS ORDERED: DAPTOmycin 500 MG in SODIUM CHLORIDE 0.9% 50 ML IV SCH (08:00)
[2017-10-14] MEDS: SEVELAMER 800 MG TAB PO SCH ×2 (09:12→15:01)
[2017-10-14] MEDS ORDERED: SODIUM CHLORIDE 0.9% 1,000 ML IV SCH (09:15)
--- NOTE | 2017-10-14 09:16 | P.PN ---
Subjective Patient is seen in follow-up for acute kidney injury on chronic kidney disease. Patient has chronic kidney disease stage IIIB/4 secondary to diabetic kidney disease with baseline creatinine near 2.2. His creatinine peaked at 5.7 this admission and was down to 4.3 yesterday. He denies any nausea or vomiting. Oral intake is good. He is currently being treated for right foot infection and also underwent debridement. Hemoglobin was still low at 6.9 yesterday and he did get another blood transfusion. Denies any melena or hematochezia. Potassium level is now in the normal range. He is nonoliguric. Vital signs are stable. General: The patient appeared well nourished and normally developed. HEENT: Head exam is unremarkable. Neck is without jugular venous distension. LUNGS: Lungs are clear to auscultation and percussion. Breath sounds decreased. HEART: Rate and Rhythm are regular. First and second heart sounds normal. No murmurs, rubs or gallops. ABDOMEN: Abdominal exam reveals normal bowel sounds. Non-tender and non- distended. No evidence of peritonitis. EXTREMITITES: No clubbing, cyanosis, or edema. No obvious drainage noted from the right foot. Objective - Vital Signs Vital signs: Vital Signs Temp 98.8 F 10/14/17 07:00 Pulse 71 10/14/17 07:00 Resp 16 10/14/17 07:00 BP 179/85 10/14/17 07:00 Pulse Ox 93 L 10/14/17 07:00 Intake & Output 10/13/17 10/14/17 10/14/17 18:59 06:59 18:59 Intake Total 1580 50 Output Total 1100 1275 Balance 480 -1275 50 Intake: IV 910 50 PRBC 310 bicarb and dextrose 600 Intake, IV Titration 0 Amount DAPTOmycin 500 mg In 0 Sodium Chloride 0.9% 50 ml @ 100 mls/hr IV Q48H [facility] Rx#:[id number] Oral 360 Blood Product 310 Rc As-1 Unit 310 [id number] Output: Urine 1100 1275 Other: Voiding Method Urinal Urinal # Voids 1 - Labs CBC & Chem 7: 10/13/17 06:16 10/13/17 06:16 Labs: Abnormal Lab Results - Last 24 Hours (Table) 10/10/17 10/12/17 10/13/17 Range/Units 15:43 09:59 06:16 RBC 2.54 L (4.30-5.90) m/uL Hgb 6.9 L* (13.0-17.5) gm/dL Hct 21.7 L (39.0-53.0) % RDW 16.2 H (11.5-15.5) % Neutrophils # 8.3 H (1.3-7.7) k/uL POC Glucose (mg/dL) (75-99) mg/dL Free [place] LC, Quant 16.30 H (0.33-1.94) mg/dL Free [place] LC, Quant 11.70 H (0.57-2.63) mg/dL Crossmatch See Detail 10/13/17 10/14/17 Range/Units 11:20 07:04 RBC (4.30-5.90) m/uL Hgb (13.0-17.5) gm/dL Hct (39.0-53.0) % RDW (11.5-15.5) % Neutrophils # (1.3-7.7) k/uL POC Glucose (mg/dL) 131 H 106 H (75-99) mg/dL Free [place] LC, Quant (0.33-1.94) mg/dL Free [place] LC, Quant (0.57-2.63) mg/dL Crossmatch Microbiology - Last 24 Hours (Table) 10/11/17 22:28 Blood Culture - Preliminary Blood No Growth after 48 hours 10/11/17 21:20 Blood Culture - Preliminary Blood No Growth after 48 hours 10/12/17 08:00 Gram Stain - Preliminary Foot - Right Wound Culture - Preliminary Assessment and Plan Plan: Assessment: #1. Nonoliguric acute kidney injury most to prerenal secondary to acute anemia and further worsened with the use of diuretics and Cozaar. Creatinine peaked at 5.7 this admission and was down to 4.33 yesterday. No evidence of hydronephrosis on renal ultrasound. No evidence of urinary retention. He does have proteinuria and hematuria on UA. Concern for GN as well. UPC 0.7. Urine eosinophils negative. Serologies negative so far. #2. Chronic kidney disease stage IIIB secondary to diabetic kidney disease with baseline creatinine near 2.2. #3. Acute blood loss anemia status post blood transfusion. Hemoglobin down to 6.4 as of October 12; 6.9 10/13. #4. Hyperkalemia secondary to acute kidney injury, metabolic acidosis and concern for GI bleed. Further worsened with the use of Cozaar. Improved. #5. Metabolic acidosis secondary to acute kidney injury. Improved. #6. Right foot ulcer maintained on IV antibiotics per infectious disease recommendations. #7. Hypertension with chronic kidney disease. BP on higher side. #8. Hyperphosphatemia secondary to acute kidney injury/chronic kidney disease maintained on Renvela. #9. Insulin-dependent diabetes mellitus. #10. Chronic kidney disease mineral bone disease maintained on Drisdol and calcitriol. Plan: Discontinue sodium bicarbonate drip. Start NS @ 50 cc/hr. Low potassium diet. Avoid nephrotoxic agents and hypotensive episodes. Diuretics and Cozaar held for now. Add hydralazine 25 mg TID. Maintain oral sodium bicarbonate 1300 mg twice daily. Follow-up serologies. Repeat electrolytes in the morning. Continue to monitor renal function and urine output. No urgent need for renal replacement therapy at this time.
[2017-10-14] MEDS: SODIUM BICARBONATE TAB 650 MG TAB PO SCH (09:22)
[2017-10-14] MEDS: PANTOPRAZOLE 40 MG TABLET PO SCH (09:27)
[2017-10-14] MEDS: hydrALAZINE HCL 25 MG TAB PO SCH ×2 (09:27→15:02)
[2017-10-14] MEDS: CALCITRIOL 0.25 MCG CAP PO SCH (09:27)
[2017-10-14] MEDS: CARVEDILOL 12.5 MG TAB PO SCH (09:27)
[2017-10-14] MEDS: ASCORBIC ACID 500 MG TAB PO SCH (09:27)
[2017-10-14 09:34] LABS: Calcium 9.8 mg/dL (8.4-10.2); Potassium 4.8 mmol/L (3.5-5.1)
[2017-10-14] MEDS: AMPICILLIN-SULBACTAM 3 GM in SODIUM CHLORIDE 0.9% 100 ML IVPB SCH (10:21)
[2017-10-14 11:01] LABS: Anisocytosis Slight; Basophils % (A) 0 %; Eosinophils # (A) 0.2 k/uL (0-0.7); Eosinophils % (A) 3 %; HCT 23.4 % (39.0-53.0); HGB 7.4 gm/dL (13.0-17.5); Hypochromasia Slight; Lymphocytes # (A) 0.7 k/uL (1.0-4.8); Lymphocytes % (A) 8 %; MCH 27.3 pg (25.0-35.0); MCHC 31.6 g/dL (31.0-37.0); MCV 86.3 fL (80.0-100.0); Mean Platelet Volume 7.7; Monocytes # (A) 0.5 k/uL (0-1.0); Monocytes % (A) 5 %; Neutrophils # (A) 7.3 k/uL (1.3-7.7); Neutrophils % (A) 83 %; Platelet Count 332 k/uL (150-450); RBC 2.72 m/uL (4.30-5.90); RDW 16.2 % (11.5-15.5); WBC 8.8 k/uL (3.8-10.6)
[2017-10-14 11:19] LABS: Glucose,Whole Blood 113 mg/dL (75-99)
[2017-10-14] MEDS ORDERED: PROPOFOL 10 MG/ML 20 ML VIAL IV ONE (12:29)
[2017-10-14] MEDS ORDERED: IV FLUID CONTINUATION 800 ML IV ONE ×2 (12:45)
--- NOTE | 2017-10-14 12:57 | P.PCN ---
Date of Procedure: 10/14/17 Procedure(s) Performed: BRIEF HISTORY: Patient is a 52-year-old, pleasant, white male with history of chronic kidney disease stage III, admitted to the hospital with cellulitis and was noted to have severe symptomatic iron deficiency anemia with hemoglobin of 6.5 requiring 3 units of blood transfusion. He denies any GI bleeding. He was scheduled for an upper endoscopy as well as colonoscopy today. However he did not take his prep last night and colonoscopies canceled. . PROCEDURE PERFORMeD: Esophagogastroduodenoscopy with biopsy Preoperative diagnosis severe symptomatic anemia IV sedation per anesthesia. PROCEDURE: After informed consent was obtained, the patient was brought into the endoscopy unit. IV sedation was administered by Anesthesia under continuous monitoring. Initially the Olympus GIF-140 video endoscope was inserted into the mouth. Esophagus intubated without any difficulty. It was gradually advanced into the stomach and duodenum and carefully examined. The bulb and the second part of the duodenum appeared normal. biopsies were done from the duodenum to rule out celiac disease. The scope at this time was withdrawn to the stomach, adequately insufflated with air, and upon careful examination, mucosa of the antrum had patchy areas of erythema and biopsies were done from this area. The , body, cardia and the fundus appeared normal. The scope was then withdrawn into the esophagus. The GE junction was located at 39 cm from the incisors. The esophagus appeared normal. There were no erosions or ulcerations seen and the patient tolerated the procedure well. IMPRESSION: 1. Mild antral gastritis. 2. No evidence of esophagitis or peptic ulcer disease. RECOMMENDATIONS: The findings of this examination were discussed with the patient. He was advised to follow with the biopsy results. His last colonoscopy was 3 years ago and according to the patient was within normal limits. No plans for repeat colonoscopy this time since patient refuses to have one done during this hospitalization. We will advance diet as tolerated..
[2017-10-14 14:40] VITALS: BP 160/82
[2017-10-14] MEDS ORDERED: ERTAPENEM 1 GM in SODIUM CHLORIDE 0.9% 50 ML IVPB SCH (16:00)
--- NOTE | 2017-10-14 20:25 | DS ---
DISCHARGE SUMMARY DATE OF ADMISSION: 10/10/2017. DATE OF DISCHARGE: 10/14/2017 FINAL DIAGNOSES: 1. Right foot abscess in the setting of a Charcot foot from severe peripheral neuropathy causing sepsis from a foreign body injury leading to incision and drainage. 2. Right Charcot foot secondary to advanced diabetes. 3. Peripheral neuropathy secondary to diabetes. 4. Severe symptomatic anemia, likely secondary to chronic kidney disease. The patient required 3 units of packed red blood cells. 5. Iron deficiency anemia. 6. Hyperkalemia due to chronic kidney disease. 7. Morbid obesity with a body mass index of 39. 8. Essential hypertension. 9. Peptic ulcer disease, history of; not any further. 10.Chronic kidney disease, possible mineral bone disease. 11.Hypoalbuminemia as an acute phase reactant. 12.Non-oliguric acute kidney injury with improvement of creatinine. 13.Chronic kidney disease, stage IIIB, secondary to diabetic nephropathy. 14.Hyperphosphatemia. 15.Metabolic acidosis from renal failure. HOSPITAL COURSE: This pleasant gentleman presented with a septic picture with an abscess in the right foot which he was treating at home from a bathroom tile that was broken. The patient was found to have a Charcot foot with destroyed bones in the foot and abscess. Abscess was drained 2 or 3 times, both by Dr. Onofre and Dr. Fan. I did discuss with Dr. Onofre. It was felt the patient was doing well and did not need to go to the OR for any further drainage. All of patient's cultures came back negative. Patient's creatinine was 5.7 and it did come down to 3.65 by the time of discharge. The patient did get a total of 4 units of blood, and hemoglobin was 7.4 today. The patient did undergo EGD by Dr. Soha Maldonado that just slightly showed some gastritis. I would have liked the patient to stay for at least a couple more days, but the patient was extremely insistent on going home and did not want to stay back. I did talk to Dr. Onofre today and also did talk to Dr. Ruiz. The patient will have wound care at the wound care center. Antibiotics will be advanced per Dr. Onofre. DISCHARGE MEDICATIONS: 1. Vitamin C 500 mg p.o. b.i.d. 2. Chromium 1000 mcg p.o. daily. 3. Iron 325 p.o. b.i.d. 4. Insulin Lantus 40 units subcutaneously at bedtime. 5. Multivitamin 1 tablet p.o. daily. 6. Fish oil 1000 mg 1 capsule p.o. daily. 7. Calcitriol 0.5 mcg p.o. every 48 hours. 8. Coreg 25 mg b.i.d.; new dose. 9. Vitamin D2 50,000 units every 7 days. 10.Humalog 10 units subcutaneously before meals t.i.d. 11.Prilosec 20 mg with breakfast. 12.Hydralazine 50 mg mg p.o. t.i.d. 13.Invanz 1 gram IV piggyback for 42 days. CONSULTATIONS: 1. Dr. Onofre, Infectious Disease. 2. Dr. French Fan, Vascular Surgery. 3. Dr. George from Orthopedic Surgery. Labs CBC, BMP in one week. Wound care to continue per Dr. Onofre and Dr. Fan. Follow up with Dr. Onofre in 10 days. Follow up with Dr. Hollingsworth on 10/17/2017. Follow up with Dr. Fan on 10/17/2017. Follow up with Dr. George p.r.n. On examination, the patient's right foot is in a dressing. LUNGS: Decreased breath sounds. CARDIOVASCULAR: First and second sounds normal. PSYCH: Alert and oriented x3. Discussion and discharge planning more than 35 minutes. MMODL / IJN: [id number] /
--- NOTE | 2017-10-14 22:24 | P.PN ---
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 He was there is a tile that is broken but ended up causing an injury to his foot. He cared for the injury by cleansing it and applying antibiotic ointment and dressings. Despite this the foot quickly changed became very swollen painful and he developed fevers and chills and felt quite poorly overall. He went to his local hospital which point in time he was on evidence of sepsis as well as a acute renal failure and was transferred to our facility for further evaluation and potential hemodialysis. The patient was found evidence of significant swelling to the right lower extremity considerably greater than the left and consequently duplex was performed that showed no evidence of any deep venous thrombosis. With renal failure ultrasound was performed of the kidneys with no evidence of any obstructive process. Because of the wound and abscess on the right foot vascular surgery and infectious diseases consultation is requested. The patient has now had a bedside incision and drainage performed. If the outside hospital there was fever which is now improving. X-ray of the foot reveals evidence of a Charcot foot with potential fracture. The patient is feeling slightly better this evening and at this severe pain is improving after incision and drainage and receiving antibiotic therapy. 10/12/2017 patient feeling somewhat better today. His pain is a bit better than admission. His MRI is complete that shows evidence of the recent infection but no obvious osteomyelitis was seen on the Charcot foot. Some fluid collections related possibly to the Charcot changes, not distinctly related as abscess. Patient continues to have acute on chronic renal failure followed by nephrology. 10/13/2017 patient remains anxious for his ability be discharged home. He over history of anemia requiring blood transfusion today, is to have acute renal failure although with some improvement. He has been seen by vascular surgery with no further plans of surgical intervention at this time. 10/14/2017 reveals the patient status post EGD, no evidence of extensive bleeding just mild gastritis was found. Receiving his last transfusion today and seems to potentially have some stability of his hemoglobin. The patient is extremely anxious to be discharged home, has been seen by nephrology and with his improving renal failure is not in need of renal replacement therapy. Antibiotic therapy is being arranged in the outpatient setting. It is explained that the MRI does not show evidence of destructive osteomyelitis at the time of incision and drainage the surgeon did probe to bone and with a Charcot foot without aggressive therapy will likely lead to foot loss of limb loss. Objective - Vital Signs Vital signs: Vital Signs Temp 98.8 F 10/14/17 07:00 Pulse 71 10/14/17 07:00 Resp 16 10/14/17 07:00 BP 160/82 10/14/17 14:40 Pulse Ox 93 L 10/14/17 07:00 Intake & Output 10/14/17 10/14/17 10/15/17 06:59 18:59 06:59 Intake Total 650 Output Total 1275 Balance -1275 650 Intake: IV 250 Intake, IV Titration 400 Amount Sodium Chloride 0.9% 1, 400 000 ml @ 50 mls/hr IV . Q20H SRAVANI Rx#:[id number] Output: Urine 1275 Other: Voiding Method Urinal Urinal # Voids 1 - Exam 52-year-old male who relates he is more comfortable now than prior. Fevers improved and severe pain to the foot is improved HEENT: Anicteric conjunctiva are pink and moist nasal mucosa grossly intact without significant lesions, there is no thrush. Neck: The neck is supple without significant lymphadenopathy or thyromegaly. Lungs: Symmetrical air entry is noted, no wheezing few basilar crackles are heard. No dullness egophony or bronchial sounds are noted Heart: Regular rate and rhythm with an audible S1-S2, no S3 positive S4. There is no significant murmur click or rub, PMI was nondisplaced. Abdomen: Obese, Positive bowel sounds soft and nontender without palpable masses or organomegaly. There was no guarding or rebound. Extremities: The upper extremities have excellent pulses they are symmetric, no significant petechiae or telangiectasia. No splinter hemorrhages were noted. The left lower extremity has no open ulcerations at this time. There is very minimal edema has a compression stocking in place. Right lower extremity is evidence of the extensive edema from the foot to above the knee. The surgical dressing was changed there is the large plantar ulceration and please see the nursing photography for its size, agree that there is bone palpable in the base of the ulcer. The foot is less tender. And there is less swelling. Neuro: Awake alert oriented to person place and time. There are no acute new gross focal sensory motor deficits. - Labs CBC & Chem 7: 10/14/17 08:35 10/14/17 08:35 Labs: Abnormal Lab Results - Last 24 Hours (Table) 10/14/17 10/14/17 10/14/17 Range/Units 07:04 08:35 08:35 RBC 2.72 L (4.30-5.90) m/uL Hgb 7.4 L (13.0-17.5) gm/dL Hct 23.4 L (39.0-53.0) % RDW 16.2 H (11.5-15.5) % Lymphocytes # 0.7 L (1.0-4.8) k/uL BUN 103 H* (9-20) mg/dL Creatinine 3.65 H (0.66-1.25) mg/dL Glucose 100 H (74-99) mg/dL POC Glucose (mg/dL) 106 H (75-99) mg/dL 10/14/17 Range/Units 11:18 RBC (4.30-5.90) m/uL Hgb (13.0-17.5) gm/dL Hct (39.0-53.0) % RDW (11.5-15.5) % Lymphocytes # (1.0-4.8) k/uL BUN (9-20) mg/dL Creatinine (0.66-1.25) mg/dL Glucose (74-99) mg/dL POC Glucose (mg/dL) 113 H (75-99) mg/dL Microbiology - Last 24 Hours (Table) 10/12/17 08:00 Gram Stain - Final Foot - Right Wound Culture - Final 10/11/17 22:28 Blood Culture - Preliminary Blood No Growth after 48 hours 10/11/17 21:20 Blood Culture - Preliminary Blood No Growth after 48 hours Laboratory Results WBC 8.8 k/uL (3.8-10.6) 10/14/17 08:35 RBC 2.72 m/uL (4.30-5.90) L 10/14/17 08:35 Hgb 7.4 gm/dL (13.0-17.5) L 10/14/17 08:35 Hct 23.4 % (39.0-53.0) L 10/14/17 08:35 MCV 86.3 fL (80.0-100.0) 10/14/17 08:35 MCH 27.3 pg (25.0-35.0) 10/14/17 08:35 MCHC 31.6 g/dL (31.0-37.0) 10/14/17 08:35 RDW 16.2 % (11.5-15.5) H 10/14/17 08:35 Plt Count 332 k/uL (150-450) 10/14/17 08:35 Neutrophils % 83 % 10/14/17 08:35 Lymphocytes % 8 % 10/14/17 08:35 Monocytes % 5 % 10/14/17 08:35 Eosinophils % 3 % 10/14/17 08:35 Basophils % 0 % 10/14/17 08:35 Neutrophils # 7.3 k/uL (1.3-7.7) 10/14/17 08:35 Lymphocytes # 0.7 k/uL (1.0-4.8) L 10/14/17 08:35 Monocytes # 0.5 k/uL (0-1.0) 10/14/17 08:35 Eosinophils # 0.2 k/uL (0-0.7) 10/14/17 08:35 Basophils # 0.0 k/uL (0-0.2) 10/14/17 08:35 Hypochromasia Slight 10/14/17 08:35 Anisocytosis Slight 10/14/17 08:35 ESR >140 mm/hr (0-15) H 10/12/17 05:40 Sodium 144 mmol/L (137-145) 10/14/17 08:35 Potassium 4.8 mmol/L (3.5-5.1) 10/14/17 08:35 Chloride 104 mmol/L (98-107) 10/14/17 08:35 Carbon Dioxide 26 mmol/L (22-30) 10/14/17 08:35 Anion Gap 14 mmol/L 10/14/17 08:35 BUN 103 mg/dL (9-20) H* 10/14/17 08:35 Creatinine 3.65 mg/dL (0.66-1.25) H 10/14/17 08:35 Est GFR (CKD-EPI)AfAm 21 (>60 ml/min/1.73 sqM) 10/14/17 08:35 Est GFR (CKD-EPI)NonAf 18 (>60 ml/min/1.73 sqM) 10/14/17 08:35 Glucose 100 mg/dL (74-99) H 10/14/17 08:35 POC Glucose (mg/dL) 113 mg/dL (75-99) H 10/14/17 11:18 POC Glu Music Grapher ID Maty Curtis 10/14/17 11:18 Plasma Lactic Acid [place] <0.5 mmol/L (0.7-2.0) L 10/11/17 21:15 Calcium 9.8 mg/dL (8.4-10.2) 10/14/17 08:35 Phosphorus 6.0 mg/dL (2.5-4.5) H 10/11/17 06:49 Iron 10 ug/dL (65-175) L 10/12/17 05:40 TIBC 164 ug/dL (228-460) L 10/12/17 05:40 Iron Saturation 6.10 (15.00-50.00) L 10/12/17 05:40 Ferritin 796.9 ng/mL (22.0-322.0) H 10/12/17 05:40 Total Bilirubin 0.5 mg/dL (0.2-1.3) 10/11/17 06:49 AST 16 U/L (17-59) L 10/11/17 06:49 ALT 30 U/L (21-72) 10/11/17 06:49 Alkaline Phosphatase 122 U/L (38-126) 10/11/17 06:49 C-Reactive Protein 218.6 mg/L (<10.0) H 10/11/17 21:20 Total Protein 6.2 g/dL (6.3-8.2) L 10/11/17 06:49 Total Protein (PEP) 5.8 g/dL (6.2-8.2) L 10/12/17 09:59 Albumin 2.9 g/dL (3.5-5.0) L 10/11/17 06:49 Vitamin D 25-Hydroxy 9.4 ng/mL (30.0-100.0) L 10/12/17 09:59 PTH Intact 809.5 pg/mL (14.0-72.0) H 03/27/18 06:49 Urine Color Yellow 10/11/17 21:12 Urine Appearance Cloudy (Clear) 10/11/17 21:12 Urine pH 5.0 (5.0-8.0) 10/11/17 21:12 Ur Specific [place] 1.014 (1.001-1.035) 10/11/17 21:12 Urine Protein 2+ (Negative) H 10/11/17 21:12 Urine Glucose (UA) Negative (Negative) 10/11/17 21:12 Urine Ketones Negative (Negative) 10/11/17 21:12 Urine Blood Negative (Negative) 10/11/17 21:12 Urine Nitrite Negative (Negative) 10/11/17 21:12 Urine Bilirubin Negative (Negative) 10/11/17 21:12 Urine Urobilinogen <2.0 mg/dL (<2.0) 10/11/17 21:12 Ur Leukocyte Esterase Negative (Negative) 10/11/17 21:12 Urine RBC 6 /hpf (0-5) H 10/11/17 21:12 Urine WBC 10 /hpf (0-5) H 10/11/17 21:12 Urine Bacteria Occasional /hpf (None) H 10/11/17 21:12 Urine Mucus Rare /hpf (None) H 10/11/17 21:12 Urine Yeast (Budding) Few /hpf (None) H 10/11/17 21:12 Urine Eosinophils 0 % 10/12/17 19:05 Ur Random Creatinine 140.4 mg/dL 10/12/17 19:05 U Random Total Protein 101 mg/dL (<12) H 10/12/17 19:05 Vancomycin Trough 27.5 ug/mL 10/12/17 05:40 BEATRICE Screen NEGATIVE (NEGATIVE) 10/12/17 09:59 c-ANCA <1:20 Titer (<1:20) 10/12/17 09:59 p-ANCA <1:20 Titer (<1:20) 10/12/17 09:59 Double Strand DNA Ab NEGATIVE (NEGATIVE) 10/12/17 09:59 Anti-DNA Ab Interp <1.0 IU/mL 10/12/17 09:59 Complement C3 142.0 mg/dL (80.0-207.0) 10/12/17 09:59 Complement C4 29.4 mg/dL (10.0-53.0) 10/12/17 09:59 Tot Complement (CH50) 88 U/mL (42 - 95) 10/12/17 09:59 Free [place] LC, Quant 16.30 mg/dL (0.33-1.94) H 10/12/17 09:59 Free Lambda LC, Quant 11.70 mg/dL (0.57-2.63) H 10/12/17 09:59 Hepatitis A IgM Ab Non-Reactive (Non-Reactive) 10/12/17 09:59 Hep Bs Antigen Non-Reactive (Non-Reactive) 10/12/17 09:59 Hep B Core IgM Ab Non-Reactive (Non-Reactive) 10/12/17 09:59 Hep C IgG Ab Non-Reactive (Non-Reactive) 10/12/17 09:59 Blood Type A Positive 10/14/17 08:35 Blood Type Recheck No 10/14/17 08:35 Antibody Screen NEGATIVE 10/14/17 08:35 Crossmatch See Detail 10/10/17 15:43 Spec Expiration Date 10/17/2017233410/14/17 08:35 Microbiology 10/12/17 08:00 Foot - Right Gram Stain - Final 10/12/17 08:00 Foot - Right Wound Culture - Final 10/11/17 22:28 Blood Blood Culture - Preliminary No Growth after 48 hours 10/11/17 21:20 Blood Blood Culture - Preliminary No Growth after 48 hours Assessment and Plan (1) Acute renal failure Status: Acute Code(s): N17.9 - ACUTE KIDNEY FAILURE, UNSPECIFIED SNOMED Code (s): 99899987 (2) Diabetic ulcer of right foot Narrative/Plan: 52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 This started with an injury to his right foot by cutting tile. Within several days started to feel poorly with fevers chills and progressive malaise. Relates that when he feels poorly sometimes his duodenal ulcer will bleed. Will become anemic. He did present to his local emergency room where he was found evidence of significant anemia with a hemoglobin less than 7. Acute renal failure with a creatinine of 5.2. He was transferred to [facility] for further intervention. He was found evidence of a significant abscess on the plantar surface of the right foot and consequently had an incision and drainage performed by vascular surgery. The patient is feeling a bit better this evening. He has received antibiotics with Unasyn and a dose of vancomycin. Because of his acute renal failure vancomycin is discontinued and we'll switch him to daptomycin. Goal be to avoid nephrotoxic agents as his kidney function is attempting to recover. Nephrology following. Hopefully he will not need to progress on to hemodialysis. Obtain MRI to evaluate for osteomyelitis of the charot foot which by x-ray has fractures unable to determine acuity and infection. Await culture results to help direct the course of antibiotic therapy which I most likely will be intravenous given the complex foot infection and goal for foot and leg salvage. 10/12/2017 reveals the patient to be feeling slightly better. He's been evaluated by nephrology and continues to have acute and chronic renal failure his creatinine increased back up to 5.7. There is concerned he will need renal replacement therapy. Antibiotic therapy with Unasyn and daptomycin been utilize all cultures from process. We'll ask for vascular surgery to evaluate the MRI to ensure that he does not need further surgical debridement. It is noted that the debridement originally performed did go to bony structures and constantly we'll plan a protracted course of antibiotic therapy for foot salvage. He will definitely an offloading boot of some type, council walker would be ideal 10/13/2017 patient remains ill but improved. His creatinine is showing some improvement today down to 4.33 and nephrology is pleased. The patient however has ongoing anemia with hemoglobin low at 6.9.receiving packed red cells today. Ongoing supportive care. The patient has renal failure and constantly not a candidate for PICC line placement and consequently Duncan catheter has been requested for his outpatient intravenous antibiotic therapy.if this time likely will utilize Invanz for once a day therapy with a tremendous be done at home remedy to go to the local hospital. The medial offloading and a Roll-A-Bout has been requested, she utilize a walker when not on the Roll-A-Bout. Since wound VAC will be utilized is not a candidate for a council walker at this time 10/14/2017 patient has had some further improvement of his status and it is creatinine is down to 3.65 and has been evaluated by nephrology. He is not in need of renal replacement therapy at this time and is transitioned to oral medications and that his significant acidosis is also improved. We are working with the home care providers to provide Invanz 1 g IV piggyback daily at home for his complex diabetic foot infection with a Charcot foot with ulceration probes to bone. Goal time his foot and limb salvage. Patient is clearly aware of the great risks of the significant of an infection to his foot and the need for aggressive local wound care which we done with a silver dressing Tuesday and intravenous antibiotic therapy. Case management is working with his insurance company to have a solid range. The Roll-A-Bout as has been requested and is delivered for offloading of that foot at all times. Orthopedics is provided an offloading boot. Hemoglobin is 7.4 which is the highest it has been since his admission, which appears to multifactorial including the significant infection and his chronic renal failure. No evidence of any significant bleeding was noted at the time of the upper endoscopy but colonoscopy was not performed. The patient will follow-up in the wound healing center with Dr. Fan and myself on a weekly basis. Status: Acute Code(s): E11.621 - TYPE 2 DIABETES MELLITUS WITH FOOT ULCER; L97.519 - NON-PRS CHRONIC ULCER OTH PRT RIGHT FOOT W UNSP SEVERITY SNOMED Code (s): 438735853 (3) Acute blood loss anemia Status: Acute Code(s): D62 - ACUTE POSTHEMORRHAGIC ANEMIA SNOMED Code(s): 356029328
[2017-10-17 07:16] LABS: Gamma Globulin 1.18 g/dL (0.70-1.50)
--- NOTE | 2017-10-17 11:08 | IR ---
EXAMINATION TYPE: IR cvc insert central tunneled DATE OF EXAM: 10/17/2017 COMPARISON: NONE HISTORY: Tunneled catheter placement. Fluoroscopy was provided to the referring clinician. 2.3 minutes provided.
--- NOTE | 2017-10-17 11:28 | PCN ---
PROCEDURE NOTE PROCEDURE: Placement of the Medcomp 5-Lithuanian ultrasound-guided catheter for long-term antibiotic. PROCEDURE DESCRIPTION: This patient was brought to the Accounting Administrator. Right side of the neck and chest was prepped and draped in sterile manner. Ultrasound-guided micropuncture introduced right internal jugular vein, micropuncture guidewire was passed and then 4-Lithuanian dilator on the top of the guidewire. Then we created a tunnel. Through the tunnel we brought Medcomp 5-L[place]ian catheter and the sheath was advanced on top of the guidewire. Through the sheath we introduced the Medcomp catheter. Medcomp catheter was found to be at the junction of the superior vena cava and atrium flushed with heparin saline and then incision secured with 3-0 nylon and dressing applied. Patient tolerated the procedure well. . MMODL / IJN: [id number] /
== END 2017-10-14 17:55 | disposition home or self-care (01) | DRG 854 ==
LOC: EC 15:25 → 6SEL 16:42 → 5MS5E 10-14 00:22
PROVIDERS: ADMIT Hospitalist; ATTEND Hospitalist
PROC: 30233N1 Transfusion of Nonautologous Red Blood Cells into Peripheral Vein, Percutaneous Approach (ICD-10-PCS; 2017-10-10)
PROC: 0JBQ0ZZ Excision of Right Foot Subcutaneous Tissue and Fascia, Open Approach (ICD-10-PCS; principal; 2017-10-11)
PROC: 0DB68ZX Excision of Stomach, Via Natural or Artificial Opening Endoscopic, Diagnostic (ICD-10-PCS; 2017-10-14)
PROC: 02HV33Z Insertion of Infusion Device into Superior Vena Cava, Percutaneous Approach (ICD-10-PCS; 2017-10-14)
PROC: 0DB98ZX Excision of Duodenum, Via Natural or Artificial Opening Endoscopic, Diagnostic (ICD-10-PCS; 2017-10-14 07:15)
DX: A41.9 Sepsis, unspecified organism (principal); N17.9 Acute kidney failure, unspecified; E11.42 Type 2 diabetes mellitus with diabetic polyneuropathy; E11.21 Type 2 diabetes mellitus with diabetic nephropathy; E87.2 Acidosis; N18.3 Chronic kidney disease, stage 3 (moderate); E11.22 Type 2 diabetes mellitus with diabetic chronic kidney disease; D62 Acute posthemorrhagic anemia; L02.611 Cutaneous abscess of right foot; L03.115 Cellulitis of right lower limb; E11.610 Type 2 diabetes mellitus with diabetic neuropathic arthropathy; I12.9 Hypertensive chronic kidney disease with stage 1 through stage 4 chronic kidney disease, or unspecified chronic kidney disease; D63.1 Anemia in chronic kidney disease; D50.9 Iron deficiency anemia, unspecified; K29.70 Gastritis, unspecified, without bleeding; E87.5 Hyperkalemia; E66.01 Morbid (severe) obesity due to excess calories; E86.0 Dehydration; E11.621 Type 2 diabetes mellitus with foot ulcer; L97.519 Non-pressure chronic ulcer of other part of right foot with unspecified severity; E11.628 Type 2 diabetes mellitus with other skin complications; E83.9 Disorder of mineral metabolism, unspecified; S92.301A Fracture of unspecified metatarsal bone(s), right foot, initial encounter for closed fracture; S91.319A Laceration without foreign body, unspecified foot, initial encounter; E78.5 Hyperlipidemia, unspecified; E83.39 Other disorders of phosphorus metabolism; E11.65 Type 2 diabetes mellitus with hyperglycemia; Z68.39 Body mass index [BMI] 39.0-39.9, adult; Z79.899 Other long term (current) drug therapy; Z79.4 Long term (current) use of insulin; Z87.19 Personal history of other diseases of the digestive system; Z86.69 Personal history of other diseases of the nervous system and sense organs; Z87.11 Personal history of peptic ulcer disease; W26.8XXA Contact with other sharp object(s), not elsewhere classified, initial encounter; Y92.019 Unspecified place in single-family (private) house as the place of occurrence of the external cause
CPT/HCPCS: 36556; 43239; 76770; 76937; 77001; 80048; 80051; 80053; 80074; 80202; 81001; 82306; 82570; 82728; 83540; 83550; 83605; 83883; 83970; 84100; 84132; 84156; 84165; 85025; 85652; 86038; 86140; 86160; 86162; 86225; 86255; 86334; 86335; 86850; 86900; 86901; 86920; 87040; 87070; 87205; 88305; 96361; 96365; 96366; 96367; 96375; 96376; 99284

== ENCOUNTER 2019-10-07 16:17 | Inpatient (IN) | payer OTHER ==
[2019-10-07 16:56] LABS: Glucose,Whole Blood 208 mg/dL (75-99)
[2019-10-07 17:10] LABS: Anisocytosis Slight; Basophils % (A) 0 %; Eosinophils # (A) 0.2 k/uL (0-0.7); Eosinophils % (A) 3 %; HCT 29.7 % (39.0-53.0); HGB 8.9 gm/dL (13.0-17.5); Hypochromasia Marked; Lymphocytes # (A) 0.8 k/uL (1.0-4.8); Lymphocytes % (A) 12 %; MCH 30.1 pg (25.0-35.0); MCHC 30.1 g/dL (31.0-37.0); MCV 99.9 fL (80.0-100.0); Macrocytosis Slight; Mean Platelet Volume 8.3; Monocytes # (A) 0.4 k/uL (0-1.0); Monocytes % (A) 7 %; Neutrophils # (A) 4.8 k/uL (1.3-7.7); Neutrophils % (A) 75 %; Platelet Count 155 k/uL (150-450); RBC 2.97 m/uL (4.30-5.90); RDW 17.6 % (11.5-15.5); WBC 6.4 k/uL (3.8-10.6)
[2019-10-07 17:18] LABS: Albumin 3.6 g/dL (3.5-5.0); Calcium 7.5 mg/dL (8.4-10.2); Magnesium 2.4 mg/dL (1.6-2.3); Total Bilirubin 0.3 mg/dL (0.2-1.3); Total Protein 7.1 g/dL (6.3-8.2)
[2019-10-07] MEDS ORDERED: NITROGLYCERIN OINT 1 INCH/GM PACKET TOPICAL STA (17:20)
[2019-10-07] MEDS ORDERED: FUROSEMIDE 10 MG/ML 4 ML VIAL IV STA (17:20)
--- NOTE | 2019-10-07 17:21 | ED ---
Recheck HPI <Lazaro Prakash - Last Filed: 10/07/19 17:58> - General Source: patient Mode of arrival: ambulatory Limitations: no limitations <Owen Edouard - Last Filed: 10/07/19 18:28> - General Chief Complaint: Recheck/Abnormal Lab/Rx Stated Complaint: kidney problems Time Seen by Provider: 10/07/19 16:46 - History of Present Illness Initial Comments: Patient is a 54-year-old male with history of type 2 diabetes and chronic kidney disease presenting to the emergency room with a chief complaint of kidney problems. patient states over the last 1-1/2 weeks she has developed increased fluid overload that initially started in the left lower extremity has gradually progressed proximally. Patient reports developing some angioedema as well. Patient reports shortness of breath due to fluid overload. States she is feeling slightly wheezy. Patient states he takes 50 mg of Lasix daily and has not missed a dose. Patient states over the last 2 weeks he has worked about 70 hours per week and has exhausted his body. Denies any chest pain headaches light headedness or dizziness. (Owen Edouard) - Related Data Home Medications Medication Instructions Recorded Confirmed Ferrous Sulfate [Iron (65 MG 325 mg PO BID 10/10/17 10/07/19 Elemental)] Multivitamin [Men's Multi-Vitamin] 1 tab PO DAILY 10/10/17 10/07/19 Allopurinol [Zyloprim] 100 mg PO DAILY 10/07/19 10/07/19 Calcitriol 0.25 mcg PO MOFR 10/07/19 10/07/19 Ergocalciferol [Vitamin D2 50,000 unit PO MALIK 10/07/19 10/07/19 (DRISDOL)] Furosemide [Lasix] 40 mg PO DAILY 10/07/19 10/07/19 Insulin Glargine,Hum.rec.anlog 40 unit SQ HS 10/07/19 10/07/19 [Basaglar Kwikpen U-100] Sodium Bicarbonate Tab 650 mg PO DAILY 10/07/19 10/07/19 amLODIPine [Norvasc] 10 mg PO DAILY 10/07/19 10/07/19 cloNIDine HCL 0.3 mg PO Q8H 10/07/19 10/07/19 Previous Rx's Medication Instructions Recorded Carvedilol [Coreg] 25 mg PO BID #60 tablet 10/14/17 Allergies Allergy/AdvReac Type Severity Reaction Status Date / Time No Known Allergies Allergy Verified 10/07/19 17:45 Review of Systems ROS Other: All systems not noted in ROS Statement are negative. <Lazaro Prakash - Last Filed: 10/07/19 17:58> ROS Other: All systems not noted in ROS Statement are negative. <Owen Edouard - Last Filed: 10/07/19 18:28> ROS Statement: Those systems with pertinent positive or pertinent negative responses have been documented in the HPI. Past Medical History Past Medical History: Diabetes Mellitus, Hypertension, Vascular Disorder Additional Past Medical History / Comment(s): chonic anemia, kidney disease, heart mumur, bleeding ulcer History of Any Multi-Drug Resistant Organisms: None Reported Past Surgical History: Hernia Repair Additional Past Surgical History / Comment(s): eye surgery, leg amputation Past Anesthesia/Blood Transfusion Reactions: No Reported Reaction Past Psychological History: No Psychological Hx Reported Smoking Status: Never smoker <Owen Edouard - Last Filed: 10/07/19 18:28> General Exam Limitations: no limitations <Owen Edouard - Last Filed: 10/07/19 18:28> Course <Lazaro Prakash - Last Filed: 10/07/19 17:58> Vital Signs 10/07/19 10/07/19 10/07/19 16:23 16:56 16:57 Temperature 98.4 F Pulse Rate 66 Respiratory 18 Rate Blood Pressure 174/72 O2 Sat by Pulse 85 L 80 L 85 L Oximetry 10/07/19 10/07/19 16:58 17:40 Temperature Pulse Rate 64 Respiratory 18 Rate Blood Pressure 143/68 O2 Sat by Pulse 92 L 97 Oximetry - Reevaluation(s) Reevaluation #1: 10/07/19 17:41 Case, test results and ED management thus far were discussed with Dr. Mojica (hospitalist). He accepts hospital admission. He recommends nephrology consultation. He has no further recommendations at this time. 10/07/19 17:56 Case, test results and ED management thus far were discussed with Dr. Ruiz (field sampling technician). He agrees to see the patient in consultation. He recommends ordering Lasix 60 mg IV every 12 hours. He also recommends obtaining a repeat potassium level at 8 PM this evening. He has no further recommendations at this time. (Lazaro Prakash) Medical Decision Making - Lab Data Result diagrams: 10/07/19 16:50 10/07/19 16:50 <Lazaro Prakash - Last Filed: 10/07/19 17:58> - Lab Data Result diagrams: 10/07/19 16:50 10/07/19 16:50 <Owen Edouard - Last Filed: 10/07/19 18:28> - Medical Decision Making Patient is a 54-year-old male with history of diabetes and chronic kidney disease presenting to the emergency department with chief complaint of kidney issues. On exam patient has edematous to the abdomen with small amounts of angioedema. Patient oxygenating well on 5 L nasal cannula. Patient given 50 mg of IV Lasix. Patient is hyperkalemic, hypocalcemic, elevated BUN and creatinine. Patient given Kayexalate, calcium gluconate chloride, sodium bicarbonate, and insulin and dextrose. Patient will be admitted for further medical management. Case discussed with . Admitting Dr. Mojica. Nephrology consulted (Owen Edouard) - Lab Data Lab Results 10/07/19 10/07/19 10/07/19 Range/Units 16:50 16:50 16:50 WBC 6.4 (3.8-10.6) k/uL RBC 2.97 L (4.30-5.90) m/uL Hgb 8.9 L (13.0-17.5) gm/dL Hct 29.7 L (39.0-53.0) % MCV 99.9 (80.0-100.0) fL MCH 30.1 (25.0-35.0) pg MCHC 30.1 L (31.0-37.0) g/dL RDW 17.6 H (11.5-15.5) % Plt Count 155 (150-450) k/uL Neutrophils % 75 % Lymphocytes % 12 % Monocytes % 7 % Eosinophils % 3 % Basophils % 0 % Neutrophils # 4.8 (1.3-7.7) k/uL Lymphocytes # 0.8 L (1.0-4.8) k/uL Monocytes # 0.4 (0-1.0) k/uL Eosinophils # 0.2 (0-0.7) k/uL Basophils # 0.0 (0-0.2) k/uL Hypochromasia Marked Anisocytosis Slight Macrocytosis Slight PT 10.0 (9.0-12.0) sec INR 1.0 (<1.2) APTT 23.7 (22.0-30.0) sec Sodium 141 (137-145) mmol/L Potassium 6.2 H* (3.5-5.1) mmol/L Chloride 113 H (98-107) mmol/L Carbon Dioxide 17 L (22-30) mmol/L Anion Gap 11 mmol/L BUN 102 H* (9-20) mg/dL Creatinine 4.71 H (0.66-1.25) mg/dL Est GFR (CKD-EPI)AfAm 15 (>60 ml/min/1.73 sqM) Est GFR (CKD-EPI)NonAf 13 (>60 ml/min/1.73 sqM) Glucose 201 H (74-99) mg/dL POC Glucose (mg/dL) (75-99) mg/dL POC Glu Take Away Worker ID Plasma Lactic Acid Duarte (0.7-2.0) mmol/L Calcium 7.5 L (8.4-10.2) mg/dL Magnesium 2.4 H (1.6-2.3) mg/dL Total Bilirubin 0.3 (0.2-1.3) mg/dL AST 24 (17-59) U/L ALT 26 (4-49) U/L Alkaline Phosphatase 74 (38-126) U/L Troponin I (0.000-0.034) ng/mL NT-Pro-B Natriuret Pep pg/mL Total Protein 7.1 (6.3-8.2) g/dL Albumin 3.6 (3.5-5.0) g/dL 10/07/19 10/07/19 10/07/19 Range/Units 16:50 16:50 16:50 WBC (3.8-10.6) k/uL RBC (4.30-5.90) m/uL Hgb (13.0-17.5) gm/dL Hct (39.0-53.0) % MCV (80.0-100.0) fL MCH (25.0-35.0) pg MCHC (31.0-37.0) g/dL RDW (11.5-15.5) % Plt Count (150-450) k/uL Neutrophils % % Lymphocytes % % Monocytes % % Eosinophils % % Basophils % % Neutrophils # (1.3-7.7) k/uL Lymphocytes # (1.0-4.8) k/uL Monocytes # (0-1.0) k/uL Eosinophils # (0-0.7) k/uL Basophils # (0-0.2) k/uL Hypochromasia Anisocytosis Macrocytosis PT (9.0-12.0) sec INR (<1.2) APTT (22.0-30.0) sec Sodium (137-145) mmol/L Potassium (3.5-5.1) mmol/L Chloride (98-107) mmol/L Carbon Dioxide (22-30) mmol/L Anion Gap mmol/L BUN (9-20) mg/dL Creatinine (0.66-1.25) mg/dL Est GFR (CKD-EPI)AfAm (>60 ml/min/1.73 sqM) Est GFR (CKD-EPI)NonAf (>60 ml/min/1.73 sqM) Glucose (74-99) mg/dL POC Glucose (mg/dL) (75-99) mg/dL POC Glu Take Away Worker ID Plasma Lactic Acid Duarte <0.5 L (0.7-2.0) mmol/L Calcium (8.4-10.2) mg/dL Magnesium (1.6-2.3) mg/dL Total Bilirubin (0.2-1.3) mg/dL AST (17-59) U/L ALT (4-49) U/L Alkaline Phosphatase (38-126) U/L Troponin I <0.012 (0.000-0.034) ng/mL NT-Pro-B Natriuret Pep 60474 pg/mL Total Protein (6.3-8.2) g/dL Albumin (3.5-5.0) g/dL 10/07/19 Range/Units 16:55 WBC (3.8-10.6) k/uL RBC (4.30-5.90) m/uL Hgb (13.0-17.5) gm/dL Hct (39.0-53.0) % MCV (80.0-100.0) fL MCH (25.0-35.0) pg MCHC (31.0-37.0) g/dL RDW (11.5-15.5) % Plt Count (150-450) k/uL Neutrophils % % Lymphocytes % % Monocytes % % Eosinophils % % Basophils % % Neutrophils # (1.3-7.7) k/uL Lymphocytes # (1.0-4.8) k/uL Monocytes # (0-1.0) k/uL Eosinophils # (0-0.7) k/uL Basophils # (0-0.2) k/uL Hypochromasia Anisocytosis Macrocytosis PT (9.0-12.0) sec INR (<1.2) APTT (22.0-30.0) sec Sodium (137-145) mmol/L Potassium (3.5-5.1) mmol/L Chloride (98-107) mmol/L Carbon Dioxide (22-30) mmol/L Anion Gap mmol/L BUN (9-20) mg/dL Creatinine (0.66-1.25) mg/dL Est GFR (CKD-EPI)AfAm (>60 ml/min/1.73 sqM) Est GFR (CKD-EPI)NonAf (>60 ml/min/1.73 sqM) Glucose (74-99) mg/dL POC Glucose (mg/dL) 208 H (75-99) mg/dL POC Glu Take Away Worker Anika Yates Plasma Lactic Acid Duarte (0.7-2.0) mmol/L Calcium (8.4-10.2) mg/dL Magnesium (1.6-2.3) mg/dL Total Bilirubin (0.2-1.3) mg/dL AST (17-59) U/L ALT (4-49) U/L Alkaline Phosphatase (38-126) U/L Troponin I (0.000-0.034) ng/mL NT-Pro-B Natriuret Pep pg/mL Total Protein (6.3-8.2) g/dL Albumin (3.5-5.0) g/dL - EKG Data EKG Comments: No ST elevation. No hyperacute T waves. Ventricular rate 65, GA 188, QRS 90, QTC 436. (Owen Edouard) Disposition <ZachariahlaloShannanLazaro - Last Filed: 10/07/19 17:58> Is patient prescribed a controlled substance at d/c from ED?: No Time of Disposition: 18:28 <Owen Edouard - Last Filed: 10/07/19 18:28> Clinical Impression: Fluid overload, Hyperkalemia, Hypocalcemia Disposition: ADMITTED IP TO THIS HOSP Condition: Stable Instructions (If sedation given, give patient instructions): Acute Kidney Injury (DC) Additional Instructions: Patient will be admitted Referrals: Cholo Hollingsworth MD [Primary Care Provider] - 1-2 days
[2019-10-07 17:23] LABS: Partial Thromboplastin Time 23.7 sec (22.0-30.0)
[2019-10-07 17:29] LABS: Potassium 6.2 mmol/L (3.5-5.1)
[2019-10-07] MEDS ORDERED: SODIUM BICARB 8.4% 50 ML SYR (1 MEQ/ML) IV STA (17:29)
[2019-10-07] MEDS ORDERED: DEXTROSE 50% SYRINGE 50 ML IVP STA (17:32)
[2019-10-07] MEDS ORDERED: SODIUM POLYSTYRENE SULFONATE 15 GM/60 ML BOTTLE PO STA (17:32)
[2019-10-07] MEDS ORDERED: INSULIN REGULAR 100 UNIT/ML VIAL IV ONE (17:33)
[2019-10-07] MEDS ORDERED: CALCIUM CHLORIDE 100 MG/ML 10 ML SYRINGE IVP STA (17:36)
--- NOTE | 2019-10-07 17:36 | XR ---
EXAMINATION TYPE: XR chest 2V DATE OF EXAM: 10/07/2019 COMPARISON: NONE HISTORY: Chest pain TECHNIQUE: FINDINGS: Heart is normal. There is increased density posteriorly on the lateral view consistent with pneumonia that is not clear which side involved. There is no heart failure. There are chest leads. Bony thorax is intact. IMPRESSION: There is evidence of pneumonia that is probably in the left lower lobe posteriorly. Exam limited by patient's size.
[2019-10-07] MEDS ORDERED: CALCIUM CHLORIDE 100 MG/ML 10 ML SYRINGE IV STA (17:42)
[2019-10-07] MEDS ORDERED: LIDOCAINE URO-JET JELLY 2% 5 ML KIT URETHRAL ONE (17:45)
[2019-10-07] MEDS ORDERED: NALOXONE 0.4 MG/ML 1 ML VIAL IV PRN (17:58)
[2019-10-07] MEDS ORDERED: CALCIUM GLUCONATE 1 GM in SODIUM CHLORIDE 0.9% 100 ML IVPB ONE (18:00)
[2019-10-07] MEDS: FUROSEMIDE 10 MG/ML 10 ML VIAL IV SCH ×2 (18:05→18:06)
[2019-10-07 18:24] LABS: Glucose,Whole Blood 212 mg/dL (75-99)
[2019-10-07 20:50] LABS: Calcium 7.5 mg/dL (8.4-10.2); Potassium 5.7 mmol/L (3.5-5.1)
[2019-10-07 21:11] LABS: Glucose,Whole Blood 141 mg/dL (75-99)
[2019-10-07] MEDS: CARVEDILOL 12.5 MG TAB PO SCH (21:20)
[2019-10-07] MEDS: SODIUM BICARBONATE TAB 650 MG TAB PO SCH (21:20)
[2019-10-07] MEDS: ENOXAPARIN 40 MG/0.4 ML SYRINGE SQ SCH (21:20)
[2019-10-07] MEDS: INSULIN DETEMIR (LEVEMIR) 100 UNIT/ML SYR SQ SCH (21:20)
[2019-10-08 06:02] LABS: Glucose,Whole Blood 117 mg/dL (75-99)
[2019-10-08] MEDS: INSULIN ASPART (NovoLOG) 100 UNIT/ML VIAL SQ SCH ×3 (06:06→17:43)
[2019-10-08] MEDS: FUROSEMIDE 10 MG/ML 10 ML VIAL IV SCH (06:07)
[2019-10-08] MEDS: amLODIPine 10 MG TAB PO SCH (09:30)
[2019-10-08] MEDS: CARVEDILOL 12.5 MG TAB PO SCH ×2 (09:30→21:56)
[2019-10-08] MEDS: ENOXAPARIN 40 MG/0.4 ML SYRINGE SQ SCH (09:30)
[2019-10-08] MEDS: ALLOPURINOL 100 MG TAB PO SCH (09:30)
[2019-10-08] MEDS: CALCITRIOL 0.25 MCG CAP PO SCH (09:30)
[2019-10-08] MEDS: SODIUM BICARBONATE TAB 650 MG TAB PO SCH ×3 (09:30→21:56)
[2019-10-08 10:32] LABS: Calcium 7.1 mg/dL (8.4-10.2); Potassium 5.2 mmol/L (3.5-5.1)
--- NOTE | 2019-10-08 11:16 | P.NPCON ---
History of Present Illness - Reason for Consult acute renal failure, chronic renal failure - History of Present Illness Reason for consultation: Acute kidney injury on chronic kidney disease History of present illness: Patient is a 54-year-old male seen in renal consultation for acute kidney injury on chronic kidney disease. Patient has chronic kidney disease stage IV secondary to diabetic kidney disease with baseline creatinine near 3-3.5. Creatinine was 4.7 on admission and is 4.83 this morning. Patient presented to the hospital with worsening edema and shortness of breath. Patient states he's been working about 70 hours a week and felt that it was too much. He did back off on his work but wasn't feeling well this patient with worsening edema and shortness of breath. He states he has been taking Lasix 40 mg orally once daily at home. He currently has a Cartagena catheter. Urine output 700 mL since this morning. He is maintained on IV Lasix 60 mg twice daily. Denies fever or chills. Hemodynamically stable. No vomiting or diarrhea. Denies use of nonsteroidals. He has long-standing history of diabetes mellitus. He has history of right BKA. Vital signs are stable. General: The patient appeared well nourished and normally developed. HEENT: Head exam is unremarkable. Neck is without jugular venous distension. LUNGS: Lungs are clear to auscultation and percussion. Breath sounds decreased. HEART: Rate and Rhythm are regular. First and second heart sounds normal. No murmurs, rubs or gallops. ABDOMEN: Abdominal exam reveals normal bowel sounds. Non-tender and non-distended. No evidence of peritonitis. EXTREMITITES: 2+ edema. BKA noted. Past Medical History Past Medical History: Diabetes Mellitus, Hypertension, Vascular Disorder Additional Past Medical History / Comment(s): chonic anemia, kidney disease, heart mumur, bleeding ulcer History of Any Multi-Drug Resistant Organisms: None Reported Past Surgical History: Hernia Repair Additional Past Surgical History / Comment(s): eye surgery, leg amputation Past Anesthesia/Blood Transfusion Reactions: No Reported Reaction Past Psychological History: No Psychological Hx Reported Additional Psychological History / Comment(s): . 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 No animals in the home. 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 2 children still at home Smoking Status: Never smoker Past Alcohol Use History: Rare - Past Family History Mother Family Medical History: No Reported History Father Family Medical History: No Reported History Medications and Allergies Home Medications Medication Instructions Recorded Confirmed Type Ferrous Sulfate [Iron (65 MG 325 mg PO BID 10/10/17 10/07/19 History Elemental)] Multivitamin [Men's Multi-Vitamin] 1 tab PO DAILY 10/10/17 10/07/19 History Carvedilol [Coreg] 25 mg PO BID #60 tablet 10/14/17 10/07/19 Rx Allopurinol [Zyloprim] 100 mg PO DAILY 10/07/19 10/07/19 History Calcitriol 0.25 mcg PO MOFR 10/07/19 10/07/19 History Ergocalciferol [Vitamin D2 50,000 unit PO MALIK 10/07/19 10/07/19 History (DRISDOL)] Furosemide [Lasix] 40 mg PO DAILY 10/07/19 10/07/19 History Insulin Glargine,Hum.rec.anlog 40 unit SQ HS 10/07/19 10/07/19 History [Basaglar Kwikpen U-100] Sodium Bicarbonate Tab 650 mg PO DAILY 10/07/19 10/07/19 History amLODIPine [Norvasc] 10 mg PO DAILY 10/07/19 10/07/19 History cloNIDine HCL 0.3 mg PO Q8H 10/07/19 10/07/19 History Allergies Allergy/AdvReac Type Severity Reaction Status Date / Time No Known Allergies Allergy Verified 10/07/19 17:45 Physical Exam Vitals: Vital Signs Temp Pulse Pulse Resp BP BP Pulse Ox 10/08/19 03:30 98.3 F 73 18 140/63 92 L 10/07/19 23:00 98 F 63 18 152/70 93 L 10/07/19 19:00 97.8 F 67 18 166/77 94 L 10/07/19 18:23 98.1 F 64 18 138/72 95 10/07/19 17:40 64 18 143/68 97 10/07/19 16:58 92 L 10/07/19 16:57 85 L 10/07/19 16:56 80 L 10/07/19 16:23 98.4 F 66 18 174/72 85 L Intake and Output 10/07/19 10/08/19 10/08/19 22:59 06:59 14:59 Intake Total 480 Output Total 325 Balance -325 480 Intake: Oral 480 Output: Urine 325 Uretheral (Cartagena) 325 Other: Voiding Method Indwelling Catheter Indwelling Catheter Weight 170.097 kg 166 kg Results - Lab Results Most recent lab results Calcium 7.1 mg/dL (8.4-10.2) L 10/08/19 10:09 Magnesium 2.4 mg/dL (1.6-2.3) H 10/07/19 16:50 10/07/19 16:50 10/08/19 10:09 Assessment and Plan Plan: Assessment: 1. Acute kidney injury secondary to ATN secondary to cardiorenal syndrome. Creatinine 4.83 today. 2. Chronic kidney disease stage IV with baseline creatinine in the range of 2- 3.5 secondary to diabetic kidney disease. 3. Hyperkalemia secondary to acute kidney injury and metabolic acidosis. Improved with medical management. 4. Metabolic acidosis secondary to acute kidney injury. 5. Insulin-dependent diabetes mellitus. 6. Hypertension with chronic kidney disease. Stable. 7. Chronic kidney disease mineral bone disease maintained on calcitriol. 8. Volume overload. Plan: Start Lasix drip at 10 mL an hour. Strict Is and Os. Maintain oral sodium bicarbonate. Avoid nephrotoxins. Continue to assess daily for need for renal replacement therapy. Thank you for the consultation. I will continue to follow the patient did during his hospital stay.
[2019-10-08 11:38] LABS: Glucose,Whole Blood 177 mg/dL (75-99)
[2019-10-08] MEDS: MULTIVITAMINS, THERA 1 EACH TAB PO SCH (11:51)
[2019-10-08] MEDS: FUROSEMIDE 100 MG in SODIUM CHLORIDE 0.9% 90 ML IV SCH ×2 (12:19→21:56)
[2019-10-08 16:43] LABS: Glucose,Whole Blood 194 mg/dL (75-99)
[2019-10-08 16:46] LABS: ABG Base Excess -8.4 mmol/L; ABG HCO3 21 mmol/L (21-25); ABG Oxygen Saturation 97.5 % (94-97); ABG PCO2 61 mmHg (35-45); ABG PO2 104 mmHg (83-108); ABG TCO2 23 mmol/L (19-24); Allen Test Performed? Yes
[2019-10-08 16:54] LABS: ABG PH 7.14 (7.35-7.45)
--- NOTE | 2019-10-08 17:11 | XR ---
EXAMINATION TYPE: XR chest 1V portable DATE OF EXAM: 10/08/2019 CLINICAL HISTORY: Difficulty breathing progress study. TECHNIQUE: Single AP portable upright view of the chest is obtained. COMPARISON: Chest x-ray from one day earlier FINDINGS: Exam slightly suboptimal due to portable technique and patient's large body habitus. There is persistent cardiomegaly and low lung volumes. No new suspicious focal airspace opacity, pleural ef fusion, or pneumothorax seen bilaterally. Posterior basilar opacity on prior study lateral view remai ns not well seen on frontal projection. Osseous structures are intact. IMPRESSION: Cardiomegaly and low lung volumes with possible residual posterior basilar acute infiltra te. No new infiltrate is seen.
--- NOTE | 2019-10-08 18:30 | P.HPIM ---
History of Present Illness H&P Date: 10/08/19 Chief Complaint: Short of breath, swelling History of presenting complaint: This is a very pleasant 54-year-old patient of Dr. Hollingsworth. Chronic stable medical conditions include diabetes, hypertension, chronic kidney disease, peptic ulcer disease, right below-knee amputation for Charcot foot with abscess, and a full neuropathy, morbid obesity. Patient presents with progressive increasing swelling of the body increasing shortness of breath. Denies any fever and chills. No cough or sputum. Patient's bun and creatinine was 103 and 3.65 back in September 2017. more tired and rundown. 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 Family history: Reviewed, noncontributory to presentation Physical examination: VITAL SIGNS: 98.4, 66, 18, 174/72, 85% on room air-upon presentation GENERAL: BMI 51, sitting up, tired. EYES: Pupils equal. Conjunctiva normal. HEENT: External appearance of nose and ears normal, oral cavity grossly normal. NECK: JVD unable to assess; masses not palpable. HEART: First and second heart sounds are normal; edema present. LUNGS: Respiratory rate increased; decreased breath sounds. ABDOMEN: Soft, nontender, liver spleen not palpable, no masses palpable Cartagena catheter. PSYCH: Answering questions but tiredl. EXTREMITY: Right below-knee amputation NEUROLOGICAL: Cranial nerves grossly intact; no facial asymmetry, power and sensation grossly intact. LYMPHATICS: No lymph nodes palpable in the axilla and neck INVESTIGATIONS, reviewed in the clinical context: White count 6.4 hemoglobin 8.9 platelets 155 potassium 6.2 17 bun 102 creatinine 4.71 EKG tracing personally reviewed by me-shows poor R-wave progression, sinus rhythm nonspecific ST segment changes Chest x-ray film personally reviewed by me-pulmonary edema some cardiomegaly pleural effusion Assessment: -Acute on chronic kidney disease worsening, secondary to ATN from cardiorenal syndrome -Severe fluid overload due to renal failure -Chronic kidney disease stage IV from diabetic nephropathy -Hypokalemia due to renal failure -Metabolic acidosis due to renal failure -Diabetes mellitus type 2, chronically on insulin -Morbid obesity BMI 51 -Hypertensive urgency -Hypertension with chronic kidney disease -Chronic kidney disease 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 -Acute hypoxic respiratory failure from pulmonary edema Plan: Patient started on Lasix drip. We'll see how he does with that. Most likely related to hemodialysis. Home medications resumed. Care was discussed with the patient. Nephrology was consulted. Lovenox for DVT prophylaxis. Patient only had received sodium bicarbonate, Kayexalate, calcium chloride for hyperkalemia. Past Medical History Past Medical History: Diabetes Mellitus, Hypertension, Vascular Disorder Additional Past Medical History / Comment(s): chonic anemia, kidney disease, heart mumur, bleeding ulcer History of Any Multi-Drug Resistant Organisms: None Reported Past Surgical History: Hernia Repair Additional Past Surgical History / Comment(s): eye surgery, leg amputation Past Anesthesia/Blood Transfusion Reactions: No Reported Reaction Past Psychological History: No Psychological Hx Reported Additional Psychological History / Comment(s): . 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 No animals in the home. 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 2 children still at home Smoking Status: Never smoker Past Alcohol Use History: Rare - Past Family History Mother Family Medical History: No Reported History Father Family Medical History: No Reported History Medications and Allergies Home Medications Medication Instructions Recorded Confirmed Type Ferrous Sulfate [Iron (65 MG 325 mg PO BID 10/10/17 10/07/19 History Elemental)] Multivitamin [Men's Multi-Vitamin] 1 tab PO DAILY 10/10/17 10/07/19 History Carvedilol [Coreg] 25 mg PO BID #60 tablet 10/14/17 10/07/19 Rx Allopurinol [Zyloprim] 100 mg PO DAILY 10/07/19 10/07/19 History Calcitriol 0.25 mcg PO MOFR 10/07/19 10/07/19 History Ergocalciferol [Vitamin D2 50,000 unit PO MALIK 10/07/19 10/07/19 History (DRISDOL)] Furosemide [Lasix] 40 mg PO DAILY 10/07/19 10/07/19 History Insulin Glargine,Hum.rec.anlog 40 unit SQ HS 10/07/19 10/07/19 History [Basaglsujit Yepez U-100] Sodium Bicarbonate Tab 650 mg PO DAILY 10/07/19 10/07/19 History amLODIPine [Norvasc] 10 mg PO DAILY 10/07/19 10/07/19 History cloNIDine HCL 0.3 mg PO Q8H 10/07/19 10/07/19 History Sodium Polystyrene Sulfon/Sorb 15 gm PO ONCE PRN 10/08/19 10/08/19 History [Kionex 15 gm/60 ml Suspension] Allergies Allergy/AdvReac Type Severity Reaction Status Date / Time No Known Allergies Allergy Verified 10/07/19 17:45 Physical Exam Vitals: Vital Signs Temp Pulse Pulse Resp BP BP Pulse Ox 10/08/19 08:00 98.3 F 74 20 154/71 91 L 10/08/19 03:30 98.3 F 73 18 140/63 92 L 10/07/19 23:00 98 F 63 18 152/70 93 L 10/07/19 19:00 97.8 F 67 18 166/77 94 L 10/07/19 18:23 98.1 F 64 18 138/72 95 10/07/19 17:40 64 18 143/68 97 10/07/19 16:58 92 L 10/07/19 16:57 85 L 10/07/19 16:56 80 L 10/07/19 16:23 98.4 F 66 18 174/72 85 L Intake and Output 10/07/19 10/08/19 10/08/19 22:59 06:59 14:59 Intake Total 930 Output Total 325 Balance -325 930 Intake: Oral 930 Output: Urine 325 Uretheral (Cartagena) 325 Other: Voiding Method Indwelling Catheter Indwelling Catheter Indwelling Catheter Weight 170.097 kg 166 kg Results CBC & Chem 7: 10/07/19 16:50 10/08/19 10:09 Labs: Abnormal Lab Results - Last 24 Hours (Table) 10/07/19 10/07/19 10/07/19 Range/Units 16:50 16:50 16:50 RBC 2.97 L (4.30-5.90) m/uL Hgb 8.9 L (13.0-17.5) gm/dL Hct 29.7 L (39.0-53.0) % MCHC 30.1 L (31.0-37.0) g/dL RDW 17.6 H (11.5-15.5) % Lymphocytes # 0.8 L (1.0-4.8) k/uL Potassium 6.2 H* (3.5-5.1) mmol/L Chloride 113 H (98-107) mmol/L Carbon Dioxide 17 L (22-30) mmol/L BUN 102 H* (9-20) mg/dL Creatinine 4.71 H (0.66-1.25) mg/dL Glucose 201 H (74-99) mg/dL POC Glucose (mg/dL) (75-99) mg/dL Plasma Lactic Acid Duarte <0.5 L (0.7-2.0) mmol/L Calcium 7.5 L (8.4-10.2) mg/dL Magnesium 2.4 H (1.6-2.3) mg/dL 10/07/19 10/07/19 10/07/19 Range/Units 16:55 18:22 20:16 RBC (4.30-5.90) m/uL Hgb (13.0-17.5) gm/dL Hct (39.0-53.0) % MCHC (31.0-37.0) g/dL RDW (11.5-15.5) % Lymphocytes # (1.0-4.8) k/uL Potassium 5.7 H (3.5-5.1) mmol/L Chloride 113 H (98-107) mmol/L Carbon Dioxide 21 L (22-30) mmol/L BUN 99 H (9-20) mg/dL Creatinine 4.84 H (0.66-1.25) mg/dL Glucose 128 H (74-99) mg/dL POC Glucose (mg/dL) 208 H 212 H (75-99) mg/dL Plasma Lactic Acid Duarte (0.7-2.0) mmol/L Calcium 7.5 L (8.4-10.2) mg/dL Magnesium (1.6-2.3) mg/dL 10/07/19 10/08/19 10/08/19 Range/Units 21:08 06:01 10:09 RBC (4.30-5.90) m/uL Hgb (13.0-17.5) gm/dL Hct (39.0-53.0) % MCHC (31.0-37.0) g/dL RDW (11.5-15.5) % Lymphocytes # (1.0-4.8) k/uL Potassium 5.2 H (3.5-5.1) mmol/L Chloride 113 H (98-107) mmol/L Carbon Dioxide 19 L (22-30) mmol/L BUN 101 H* (9-20) mg/dL Creatinine 4.83 H (0.66-1.25) mg/dL Glucose 169 H (74-99) mg/dL POC Glucose (mg/dL) 141 H 117 H (75-99) mg/dL Plasma Lactic Acid Duarte (0.7-2.0) mmol/L Calcium 7.1 L (8.4-10.2) mg/dL Magnesium (1.6-2.3) mg/dL Thrombosis Risk Factor Assmnt - Choose All That Apply Any of the Below Risk Factors Present?: Yes Each Factor Represents 1 point: Age 41-60 years, Medical pt on bed rest, Obesity (BMI >25), Swollen legs (current) Other Risk Factors: No Other congenital or acquired thrombophilia - If yes, enter type in comment: No Thrombosis Risk Factor Assessment Total Risk Factor Score: 4 Thrombosis Risk Factor Assessment Level: Moderate Risk
[2019-10-08 19:39] LABS: ABG HCO3 21 mmol/L (21-25); ABG Oxygen Saturation 98.1 % (94-97); ABG PCO2 56 mmHg (35-45); ABG PO2 107 mmHg (83-108); ABG TCO2 22 mmol/L (19-24); Allen Test Performed? Yes
[2019-10-08 19:45] LABS: ABG PH 7.17 (7.35-7.45)
[2019-10-08 21:07] LABS: Glucose,Whole Blood 151 mg/dL (75-99)
[2019-10-08] MEDS: INSULIN DETEMIR (LEVEMIR) 100 UNIT/ML SYR SQ SCH (21:56)
[2019-10-09 06:04] LABS: Glucose,Whole Blood 101 mg/dL (75-99)
[2019-10-09] MEDS: FUROSEMIDE 100 MG in SODIUM CHLORIDE 0.9% 90 ML IV SCH ×3 (06:19→20:18)
[2019-10-09 06:20] LABS: Calcium 7.2 mg/dL (8.4-10.2); Magnesium 2.4 mg/dL (1.6-2.3); Potassium 4.6 mmol/L (3.5-5.1)
[2019-10-09] MEDS: INSULIN ASPART (NovoLOG) 100 UNIT/ML VIAL SQ SCH ×3 (07:13→18:13)
[2019-10-09] MEDS: CARVEDILOL 12.5 MG TAB PO SCH ×2 (10:31→20:20)
[2019-10-09] MEDS: ALLOPURINOL 100 MG TAB PO SCH (10:32)
[2019-10-09] MEDS: SODIUM BICARBONATE TAB 650 MG TAB PO SCH ×3 (10:32→20:20)
[2019-10-09] MEDS: MULTIVITAMINS, THERA 1 EACH TAB PO SCH (10:32)
[2019-10-09] MEDS: amLODIPine 10 MG TAB PO SCH (10:32)
[2019-10-09] MEDS: ENOXAPARIN 30 MG/0.3 ML SYRINGE SQ SCH (10:33)
--- NOTE | 2019-10-09 10:36 | CONS ---
CONSULTATION PULMONARY/CRITICAL CARE CONSULTATION: DATE OF CONSULTATION: October 09, 2019 This is a 54-year-old male with a history of obesity, type 2 diabetes, chronic kidney disease, and right leg amputation, who comes in with complaints of increasing fluid overload, weight gain and difficulty breathing. The patient was admitted to the floor. I was called last night about this patient. We placed the patient on Lasix drip and also provided the patient with BiPAP. He is doing much better today. He is feeling much better. He states his breathing is much improved. He currently denies any chest pain or chest discomfort. He denies any cough or wheezing. He is not producing any phlegm. There is no fever or chills. He denies any abdominal pain, nausea, vomiting, diarrhea. He does have significant lower extremity edema to his left lower extremity, which is chronic. Again, he has had a right leg amputation. He denies any genitourinary complaints. CURRENT MEDICATIONS: His current medications are reviewed. They include iron, multivitamins allopurinol, calcitriol, vitamin D2, Lasix, insulin, sodium bicarbonate tablets, amlodipine, clonidine, and Coreg. ALLERGIES: Allergies are denied. MEDICAL HISTORY: Medical history is reviewed. He has got a history of diabetes mellitus, hypertension, chronic kidney disease, heart murmur, chronic anemia, bleeding ulcer, and chronic lower extremity cellulitis, right greater than left, with previous right leg amputation. He has also had some eye surgery. SOCIAL HISTORY: Negative for tobacco, alcohol or illicit drug use. FAMILY HISTORY: Family history is unremarkable. Mother and father were healthy. REVIEW OF SYSTEMS: CONSTITUTIONAL: Negative. NEUROLOGIC: Negative. HEENT: Negative. CARDIOVASCULAR: Negative. PULMONARY: Shortness of breath. GI: Negative. : Negative. RHEUMATOLOGIC: Negative. IMMUNOLOGIC: Negative. ENDOCRINOLOGIC: Negative. DERMATOLOGIC: Negative. PHYSICAL EXAMINATION: VITAL SIGNS: Current vital signs are reviewed. Temperature 97.4 heart rate 76, respiratory rate 20, blood pressure 166/72. His saturation on BiPAP are 96%. He is on 12, 5 and 50%. GENERAL: Appears in no acute distress. HEENT: Examination is grossly unremarkable. He is wearing a BiPAP mask. NECK: Supple. Full range of motion. No adenopathy or thyromegaly. Neck veins flat. CARDIOVASCULAR: Examination reveals regular rhythm and rate. Heart sounds are distant. Heart rate mid 70s. S1, S2 normal. No distinct murmur. LUNGS: Reveal coarse bilateral rhonchi. Some bibasilar crackles. No wheezes. ABDOMEN: Obese. Bowel sounds are heard. EXTREMITIES: Reveal an amputated right leg. The left side reveals edema and erythema. There is lower extremity cellulitis to the left lower extremity. SKIN: The skin is otherwise without rash. NEUROLOGIC: Examination is brief but nonfocal. LABS: Labs are reviewed. His white count 6.4 hemoglobin. Hemoglobin is 8.9, hematocrit 29.7 platelet count 155,000. He had a blood gas done showing a pO2 of 107, pCO2 of 56 and a pH of 7.17. Sodium 143 potassium is better at 4.6 down from 5.7, chloride 115, CO2 of 20. Anion gap is 8. BUN and creatinine were 102 and 4.48. The rest of the labs look okay. N terminal proBNP on the was 21,300, consistent with the admission diagnosis of fluid overload. Chest x-ray in my opinion shows evidence of cardiomegaly with cephalization and small bilateral pleural effusions. Microbiologic studies are negative. MEDICATIONS: Medications are reviewed. He is currently on Zyloprim, amlodipine, Rocaltrol, Coreg, Lovenox, Lasix drip, insulin, multivitamins, Narcan, and sodium bicarbonate tablets. ASSESSMENT: 1. Shortness of breath with hypoxemic respiratory failure, secondary to fluid overload, primarily related to his underlying kidney disease. 2. Chronic kidney disease. 3. History of diabetes with diabetic nephropathy. 4. Hyperkalemia, resolved. 5. History of hypertension. 6. History of right leg amputation. 7. History of chronic anemia. 8. History of bleeding ulcer. 9. Obesity. 10.Chronic lower extremity cellulitis. PLAN: Currently the patient is doing much better. We will continue to follow. His respiratory status has improved. We did ask the nurse to take him off the BiPAP device. He can go back on to nasal O2. Additional recommendations and suggestions are forthcoming. Prognosis is guarded. MMODL / IJN: [id number] /
--- NOTE | 2019-10-09 10:51 | P.PN ---
Subjective Patient is seen in follow-up for acute kidney injury on chronic kidney disease. Patient has chronic kidney disease stage IV secondary to diabetic kidney disease with baseline creatinine in the range of 3-3.5. Renal function is a little better today. He is diuresing well with IV Lasix drip. Dyspnea improved. Vital signs are stable. General: The patient appeared well nourished and normally developed. HEENT: Head exam is unremarkable. Neck is without jugular venous distension. LUNGS: Lungs are clear to auscultation and percussion. Breath sounds decreased. HEART: Rate and Rhythm are regular. First and second heart sounds normal. No murmurs, rubs or gallops. ABDOMEN: Abdominal exam reveals normal bowel sounds. Non-tender and non-distend ed. No evidence of peritonitis. EXTREMITITES: 2+ edema. Mild erythema present. No drainage noted. BKA noted. Objective - Vital Signs Vital signs: Vital Signs Temp 97.4 F L 10/09/19 04:00 Pulse 76 10/09/19 04:00 Resp 20 10/09/19 04:00 BP 166/72 10/09/19 04:00 Pulse Ox 96 10/09/19 04:00 Intake & Output 10/08/19 10/09/19 10/09/19 18:59 06:59 18:59 Intake Total 1170 180.000 Output Total 1000 3500 Balance 170 -3320.000 Weight 166 kg Intake: Intake, IV Titration 180.000 Amount Furosemide 100 mg In 180.000 Sodium Chloride 0.9% 90 ml @ 10 MG/HR 10 mls/hr IV .Q10H [facility] Rx#: [id number] Oral 1170 Output: Urine 1000 3500 Other: Voiding Method Indwelling Catheter Indwelling Catheter - Labs CBC & Chem 7: 10/07/19 16:50 10/09/19 05:34 Labs: Abnormal Lab Results - Last 24 Hours (Table) 10/08/19 10/08/19 10/08/19 Range/Units 11:37 16:31 16:43 ABG pH 7.14 L* (7.35-7.45) ABG pCO2 61 H (35-45) mmHg ABG O2 Saturation 97.5 H (94-97) % Chloride (98-107) mmol/L Carbon Dioxide (22-30) mmol/L BUN (9-20) mg/dL Creatinine (0.66-1.25) mg/dL POC Glucose (mg/dL) 177 H 194 H (75-99) mg/dL Calcium (8.4-10.2) mg/dL Magnesium (1.6-2.3) mg/dL 10/08/19 10/08/19 10/09/19 Range/Units 19:34 21:06 05:34 ABG pH 7.17 L* (7.35-7.45) ABG pCO2 56 H (35-45) mmHg ABG O2 Saturation 98.1 H (94-97) % Chloride 115 H (98-107) mmol/L Carbon Dioxide 20 L (22-30) mmol/L BUN 102 H* (9-20) mg/dL Creatinine 4.48 H (0.66-1.25) mg/dL POC Glucose (mg/dL) 151 H (75-99) mg/dL Calcium 7.2 L (8.4-10.2) mg/dL Magnesium 2.4 H (1.6-2.3) mg/dL 10/09/19 Range/Units 06:04 ABG pH (7.35-7.45) ABG pCO2 (35-45) mmHg ABG O2 Saturation (94-97) % Chloride (98-107) mmol/L Carbon Dioxide (22-30) mmol/L BUN (9-20) mg/dL Creatinine (0.66-1.25) mg/dL POC Glucose (mg/dL) 101 H (75-99) mg/dL Calcium (8.4-10.2) mg/dL Magnesium (1.6-2.3) mg/dL Microbiology - Last 24 Hours (Table) 10/07/19 16:50 Blood Culture - Preliminary Blood No Growth after 24 hours Assessment and Plan Plan: Assessment: 1. Acute kidney injury secondary to ATN secondary to cardiorenal syndrome. Creatinine was 4.83 on admission and is 4.48 today. 2. Chronic kidney disease stage IV with baseline creatinine in the range of 3- 3.5 secondary to diabetic kidney disease. 3. Hyperkalemia secondary to acute kidney injury and metabolic acidosis. Improved with medical management. 4. Metabolic acidosis secondary to acute kidney injury. 5. Insulin-dependent diabetes mellitus. 6. Hypertension with chronic kidney disease. Stable. 7. Chronic kidney disease mineral bone disease maintained on calcitriol. 8. Volume overload. Plan: Maintain Lasix drip at 10 mL an hour. Add metolazone 5 mg once daily. Strict Is and Os. Maintain oral sodium bicarbonate. Avoid nephrotoxins. Continue to assess daily for need for renal replacement therapy. Patient hesitant to start at this time.
[2019-10-09] MEDS: METOLAZONE 5 MG TAB PO SCH (11:41)
[2019-10-09 11:43] LABS: Glucose,Whole Blood 117 mg/dL (75-99)
--- NOTE | 2019-10-09 14:28 | P.PN ---
Progress Note - Text Progress Note Date: 10/09/19 Chief Complaint: Short of breath, swelling History of presenting complaint: This is a very pleasant 54-year-old patient of Dr. Hollingsworth. Chronic stable medical conditions include diabetes, hypertension, chronic kidney disease, peptic ulcer disease, right below-knee amputation for Charcot foot with abscess, and a full neuropathy, morbid obesity. Patient presents with progressive increasing swelling of the body increasing shortness of breath. Denies any fever and chills. No cough or sputum. Patient's bun and creatinine was 103 and 3.65 back in September 2017. more tired and rundown. Today-later yesterday. Patient became more and respiratory distress. X-ray showed pulmonary edema. Patient did eventually respond to diuretics. This morning feels a bit better. Diuresing well. Did tolerate some diet. About 3 L in negative fluid balance Review of systems: Was done for constitutional, cardiovascular, GI, pulmonary. relevant finding as above Active Medications Allopurinol (Zyloprim) 100 mg PO DAILY [facility] Last Admin: 10/09/19 10:32 Dose: 100 mg Documented by: Amlodipine Besylate (Norvasc) 10 mg PO DAILY [facility] Last Admin: 10/09/19 10:32 Dose: 10 mg Documented by: Calcitriol (Rocaltrol) 0.25 mcg PO MOFR [facility] Last Admin: 10/08/19 09:30 Dose: 0.25 mcg Documented by: Carvedilol (Coreg) 25 mg PO BID [facility] Last Admin: 10/09/19 10:31 Dose: 25 mg Documented by: Enoxaparin Sodium (Lovenox) 30 mg SQ DAILY [facility] Last Admin: 10/09/19 10:33 Dose: 30 mg Documented by: Furosemide 100 mg/ Sodium (Chloride) 100 mls @ 10 mls/hr IV .Q10H [facility] Last Admin: 10/09/19 06:19 Dose: 10 mg/hr, 10 mls/hr Documented by: Insulin Aspart (Novolog) 0 unit SQ AC-TID [facility]; Protocol Last Admin: 10/09/19 13:04 Dose: Not Given Documented by: Insulin Detemir (Levemir) 26 unit SQ HS [facility] Last Admin: 10/08/19 21:56 Dose: 26 unit Documented by: Metolazone (Zaroxolyn) 5 mg PO DAILY [facility] Last Admin: 10/09/19 11:41 Dose: 5 mg Documented by: Multivitamins (Theragran) 1 each PO DAILY@1200 [facility] Last Admin: 10/09/19 10:32 Dose: 1 each Documented by: Naloxone HCl (Narcan) 0.2 mg IV Q2M PRN PRN Reason: Opioid Reversal Sodium Bicarbonate (Sodium Bicarbonate Tab) 650 mg PO TID [facility] Last Admin: 10/09/19 10:32 Dose: 650 mg Documented by: Physical examination: VITAL SIGNS: 97.2, 70, 22, blood pressure 134/63, 93% on oxygen and GENERAL: BMI 51, propped up in bed, tired EYES: Pupils equal. Conjunctiva normal. HEENT: External appearance of nose and ears normal, oral cavity grossly normal. NECK: JVD unable to assess; masses not palpable. HEART: First and second heart sounds are normal; edema present. LUNGS: Respiratory rate increased; decreased breath sounds. ABDOMEN: Soft, nontender, liver spleen not palpable, no masses palpable [place] catheter. PSYCH: AO 3 EXTREMITY: Right below-knee amputation INVESTIGATIONS, reviewed in the clinical context: Potassium 4.6 102 creatinine 4.48 Previous testing White count 6.4 hemoglobin 8.9 platelets 155 potassium 6.2 17 bun 102 creatinine 4.71 EKG tracing personally reviewed by me-shows poor R-wave progression, sinus rhythm nonspecific ST segment changes Chest x-ray film personally reviewed by me-pulmonary edema some cardiomegaly pleural effusion Assessment: -Acute on chronic kidney disease worsening, secondary to ATN from cardiorenal syndrome-slow to respond, on Lasix drip. -Severe fluid overload due to renal failure-slow to respond -Chronic kidney disease stage IV from diabetic nephropathy -Hyperkalemia due to renal failure -Metabolic acidosis due to renal failure -Diabetes mellitus type 2, chronically on insulin -Morbid obesity BMI 51 -Hypertensive urgency -Hypertension with chronic kidney disease -Chronic kidney disease 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 -Acute hypoxic respiratory failure from pulmonary edema Plan: Continue with Lasix drip. Care was discussed with the patient. Follow lites closely. Discussed with Dr. Ruiz
[2019-10-09 17:06] LABS: Glucose,Whole Blood 157 mg/dL (75-99)
[2019-10-09 21:00] LABS: Glucose,Whole Blood 237 mg/dL (75-99)
[2019-10-09] MEDS: INSULIN DETEMIR (LEVEMIR) 100 UNIT/ML SYR SQ SCH (21:36)
[2019-10-10] MEDS: FUROSEMIDE 100 MG in SODIUM CHLORIDE 0.9% 90 ML IV SCH ×2 (04:15→22:52)
[2019-10-10 06:07] LABS: Glucose,Whole Blood 142 mg/dL (75-99)
[2019-10-10] MEDS: INSULIN ASPART (NovoLOG) 100 UNIT/ML VIAL SQ SCH ×3 (06:08→17:41)
[2019-10-10 06:46] LABS: Calcium 7.4 mg/dL (8.4-10.2); Magnesium 2.2 mg/dL (1.6-2.3); Potassium 4.9 mmol/L (3.5-5.1)
[2019-10-10] MEDS: CARVEDILOL 12.5 MG TAB PO SCH ×2 (09:00→20:40)
[2019-10-10] MEDS: amLODIPine 10 MG TAB PO SCH (09:00)
[2019-10-10] MEDS: SODIUM BICARBONATE TAB 650 MG TAB PO SCH ×3 (09:00→20:40)
[2019-10-10] MEDS: ALLOPURINOL 100 MG TAB PO SCH (09:00)
[2019-10-10] MEDS: ENOXAPARIN 30 MG/0.3 ML SYRINGE SQ SCH (09:01)
[2019-10-10] MEDS: METOLAZONE 5 MG TAB PO SCH (09:01)
--- NOTE | 2019-10-10 10:25 | P.PN ---
Subjective Patient is seen in follow-up for acute kidney injury on chronic kidney disease. Patient has chronic kidney disease stage IV secondary to diabetic kidney disease with baseline creatinine in the range of 3-3.5. Renal function is a little better today. He is diuresing well with IV Lasix drip. Dyspnea improved. Vital signs are stable. General: The patient appeared well nourished and normally developed. HEENT: Head exam is unremarkable. Neck is without jugular venous distension. LUNGS: Lungs are clear to auscultation and percussion. Breath sounds decreased. HEART: Rate and Rhythm are regular. First and second heart sounds normal. No murmurs, rubs or gallops. ABDOMEN: Abdominal exam reveals normal bowel sounds. Non-tender and non-distend ed. No evidence of peritonitis. EXTREMITITES: 2+ edema. Mild erythema present. No drainage noted. BKA noted. Objective - Vital Signs Vital signs: Vital Signs Temp 96.7 F L 10/10/19 08:00 Pulse 76 10/10/19 08:00 Resp 19 10/10/19 04:00 BP 151/72 10/10/19 08:00 Pulse Ox 95 10/10/19 08:00 Intake & Output 10/09/19 10/10/19 10/10/19 18:59 06:59 18:59 Intake Total 273 126.333 240 Output Total 4000 2420 800 Balance -7377 -2293.667 -560 Weight 162 kg Intake: Intake, IV Titration 93 126.333 Amount Furosemide 100 mg In 93 126.333 Sodium Chloride 0.9% 90 ml @ 10 MG/HR 10 mls/hr IV .Q10H [facility] Rx#: [id number] Oral 180 240 Output: Urine 4000 2420 800 Other: Voiding Method Indwelling Catheter Indwelling Catheter Indwelling Catheter - Labs CBC & Chem 7: 10/07/19 16:50 10/10/19 05:40 Labs: Abnormal Lab Results - Last 24 Hours (Table) 10/09/19 10/09/19 10/09/19 Range/Units 11:41 17:04 20:59 Chloride (98-107) mmol/L Carbon Dioxide (22-30) mmol/L BUN (9-20) mg/dL Creatinine (0.66-1.25) mg/dL Glucose (74-99) mg/dL POC Glucose (mg/dL) 117 H 157 H 237 H (75-99) mg/dL Calcium (8.4-10.2) mg/dL 10/10/19 10/10/19 Range/Units 05:40 06:06 Chloride 113 H (98-107) mmol/L Carbon Dioxide 20 L (22-30) mmol/L BUN 103 H* (9-20) mg/dL Creatinine 4.19 H (0.66-1.25) mg/dL Glucose 145 H (74-99) mg/dL POC Glucose (mg/dL) 142 H (75-99) mg/dL Calcium 7.4 L (8.4-10.2) mg/dL Microbiology - Last 24 Hours (Table) 10/07/19 16:50 Blood Culture - Preliminary Blood No Growth after 48 hours Assessment and Plan Plan: Assessment: 1. Acute kidney injury secondary to ATN secondary to cardiorenal syndrome. Creatinine was 4.83 on admission and is 4.19 today. 2. Chronic kidney disease stage IV with baseline creatinine in the range of 3- 3.5 secondary to diabetic kidney disease. 3. Hyperkalemia secondary to acute kidney injury and metabolic acidosis. Improved with medical management. 4. Metabolic acidosis secondary to acute kidney injury. 5. Insulin-dependent diabetes mellitus. 6. Hypertension with chronic kidney disease. Stable. 7. Chronic kidney disease mineral bone disease maintained on calcitriol. 8. Volume overload. Improving with diuresis. Weight trending down. Plan: Maintain Lasix drip at 10 mL an hour. Maintain metolazone 5 mg once daily. Strict Is and Os. Maintain oral sodium bicarbonate. Avoid nephrotoxins. Continue to assess daily for need for renal replacement therapy. Patient hesitant to start at this time.
--- NOTE | 2019-10-10 10:55 | P.PN ---
Subjective Progress Note Date: 10/10/19 Principal diagnosis: Acute hypoxemic respiratory failure related to fluid overload and congestive heart failure with an unknown ejection fraction On 10/10/2019 patient seen in follow-up on selective care unit. He is awake and alert, sitting up on the edge of the bed, he is getting a sponge bath, he is 5 L of oxygen per nasal cannula with a pulse ox of 93-94%, he will BiPAP support last night, with pressures of 12/5, and FiO2 of 50%, he remains on Lasix drip at 10 mg per hour and he is in -6020 ML net fluid balance over the last 24 hours, and his weight is down by 4 kg. Lower extremity edema is improving, lung sounds reveal scattered crackles, lung sounds have improved and patient states his breathing has improved no new chest x-ray today. Today's labs have been rev iewed, BNP was done, showing serum sodium of 145, potassium is 4.9, chloride is 113, CO2 is 20, BUN of 103, and creatinine 4.19 Objective - Vital Signs Vital signs: Vital Signs Temp 96.7 F L 10/10/19 08:00 Pulse 76 10/10/19 08:00 Resp 19 10/10/19 04:00 BP 151/72 10/10/19 08:00 Pulse Ox 95 10/10/19 08:00 Intake & Output 10/09/19 10/10/19 10/10/19 18:59 06:59 18:59 Intake Total 273 126.333 240 Output Total 4000 2420 800 Balance -3727 -2293.667 -560 Weight 162 kg Intake: Intake, IV Titration 93 126.333 Amount Furosemide 100 mg In 93 126.333 Sodium Chloride 0.9% 90 ml @ 10 MG/HR 10 mls/hr IV .Q10H [facility] Rx#: [id number] Oral 180 240 Output: Urine 4000 2420 800 Other: Voiding Method Indwelling Catheter Indwelling Catheter Indwelling Catheter - Exam GENERAL EXAM: Alert, very pleasant, 54-year-old obese white male, on 5 L of oxygen, with pulse ox of 93-94% comfortable in no apparent distress. HEAD: Normocephalic/atraumatic. EYES: Normal reaction of pupils, equal size. Conjunctiva pink, sclera white. NOSE: Clear with pink turbinates. THROAT: No erythema or exudates. NECK: No masses, no JVD, no thyroid enlargement, no adenopathy. CHEST: No chest wall deformity. Symmetrical expansion. LUNGS: Equal air entry with scattered crackles, but no wheeze, rhonchi or dullness. CVS: Regular rate and rhythm, normal S1 and S2, no gallops, no murmurs, no rubs ABDOMEN: Soft, nontender. No hepatosplenomegaly, normal bowel sounds, no guarding or rigidity. EXTREMITIES: No clubbing, 2+ lower extremity edema, improving from yesterday's exam no cyanosis, 2+ pulses and upper and lower extremities. MUSCULOSKELETAL: Muscle strength and tone normal. SPINE: No scoliosis or deformity SKIN: No rashes CENTRAL NERVOUS SYSTEM: Alert and oriented -3. No focal deficits, tone is normal in all 4 extremities. PSYCHIATRIC: Alert and oriented -3. Appropriate affect. Intact judgment and insight. - Labs CBC & Chem 7: 10/07/19 16:50 10/10/19 05:40 Labs: Abnormal Lab Results - Last 24 Hours (Table) 10/09/19 10/09/19 10/09/19 Range/Units 11:41 17:04 20:59 Chloride (98-107) mmol/L Carbon Dioxide (22-30) mmol/L BUN (9-20) mg/dL Creatinine (0.66-1.25) mg/dL Glucose (74-99) mg/dL POC Glucose (mg/dL) 117 H 157 H 237 H (75-99) mg/dL Calcium (8.4-10.2) mg/dL 10/10/19 10/10/19 Range/Units 05:40 06:06 Chloride 113 H (98-107) mmol/L Carbon Dioxide 20 L (22-30) mmol/L BUN 103 H* (9-20) mg/dL Creatinine 4.19 H (0.66-1.25) mg/dL Glucose 145 H (74-99) mg/dL POC Glucose (mg/dL) 142 H (75-99) mg/dL Calcium 7.4 L (8.4-10.2) mg/dL Microbiology - Last 24 Hours (Table) 10/07/19 16:50 Blood Culture - Preliminary Blood No Growth after 48 hours Assessment and Plan Plan: Assessment: #1. Acute hypoxemic respiratory failure related to acute exacerbation of congestive heart failure with unknown ejection fraction, fluid overload, and car diorenal syndrome #2. Chronic kidney disease stage IV #3. Hyperkalemia, improved with medical management #4. Metabolic acidosis related to acute kidney injury #5. Insulin-dependent diabetes mellitus #6. Hypertension #7. History of right leg amputation #8. History of chronic anemia #9. Morbid obesity #10. Obstructive sleep apnea, patient states he does not wear CPAP or BiPAP at home Plan: Dyspnea is improving, patient has diuresed over 6 L in the last 24 hours, he continues on Lasix drip, nephrology is following, diuretic therapy per nephrology. vital signs are stable. Pulmonary service will sign off and follow on as-needed basis I performed a history & physical examination of the patient and discussed their management with my nurse practitioner, Tiffany Capellan. I reviewed the nurse practitioner's note and agree with the documented findings and plan of care. Lung sounds are positive for crackles. The findings and the impression was discussed with the patient. I attest to the documentation by the nurse practitioner. Time with Patient: Less than 30
[2019-10-10 11:37] LABS: Glucose,Whole Blood 160 mg/dL (75-99)
[2019-10-10] MEDS: MULTIVITAMINS, THERA 1 EACH TAB PO SCH (12:27)
--- NOTE | 2019-10-10 13:37 | P.PN ---
Progress Note - Text Progress Note Date: 10/10/19 Chief Complaint: Short of breath, swelling History of presenting complaint: This is a very pleasant 54-year-old patient of Dr. Hollingsworth. Chronic stable medical conditions include diabetes, hypertension, chronic kidney disease, peptic ulcer disease, right below-knee amputation for Charcot foot with abscess, and a full neuropathy, morbid obesity. Patient presents with progressive increasing swelling of the body increasing shortness of breath. Denies any fever and chills. No cough or sputum. Patient's bun and creatinine was 103 and 3.65 back in September 2017. more tired and rundown. Patient is put on IV Lasix drip. Has started to respond to the same. Today-continues on IV Lasix drip. Over 9 L-negative fluid balance. Breathing slowly improving. Also fluid restriction. Review of systems: Was done for constitutional, cardiovascular, GI, pulmonary. relevant finding as above Active Medications Allopurinol (Zyloprim) 100 mg PO DAILY [facility] Last Admin: 10/10/19 09:00 Dose: 100 mg Documented by: Amlodipine Besylate (Norvasc) 10 mg PO DAILY [facility] Last Admin: 10/10/19 09:00 Dose: 10 mg Documented by: Calcitriol (Rocaltrol) 0.25 mcg PO MOFR [facility] Last Admin: 10/08/19 09:30 Dose: 0.25 mcg Documented by: Carvedilol (Coreg) 25 mg PO BID [facility] Last Admin: 10/10/19 09:00 Dose: 25 mg Documented by: Enoxaparin Sodium (Lovenox) 30 mg SQ DAILY [facility] Last Admin: 10/10/19 09:01 Dose: 30 mg Documented by: Furosemide 100 mg/ Sodium (Chloride) 100 mls @ 10 mls/hr IV .Q10H [facility] Last Admin: 10/10/19 04:15 Dose: 10 mg/hr, 10 mls/hr Documented by: Insulin Aspart (Novolog) 0 unit SQ AC-TID [facility]; Protocol Last Admin: 10/10/19 12:27 Dose: 3 unit Documented by: Insulin Detemir (Levemir) 26 unit SQ HS [facility] Last Admin: 10/09/19 21:36 Dose: 26 unit Documented by: Metolazone (Zaroxolyn) 5 mg PO DAILY [facility] Last Admin: 10/10/19 09:01 Dose: 5 mg Documented by: Multivitamins (Theragran) 1 each PO DAILY@1200 [facility] Last Admin: 10/10/19 12:27 Dose: 1 each Documented by: Naloxone HCl (Narcan) 0.2 mg IV Q2M PRN PRN Reason: Opioid Reversal Sodium Bicarbonate (Sodium Bicarbonate Tab) 650 mg PO TID [facility] Last Admin: 10/10/19 09:00 Dose: 650 mg Documented by: Physical examination: VITAL SIGNS: 96.7, 76, 19, 151/72, 95% on 5 L GENERAL: BMI 51, propped up in bed, awake EYES: Pupils equal. Conjunctiva normal. HEENT: External appearance of nose and ears normal, oral cavity grossly normal. NECK: JVD unable to assess; masses not palpable. HEART: First and second heart sounds are normal; edema present. LUNGS: Respiratory rate increased; decreased breath sounds. ABDOMEN: Soft, nontender, liver spleen not palpable, no masses palpable Cartagena catheter. PSYCH: AO 3 EXTREMITY: Right below-knee amputation INVESTIGATIONS, reviewed in the clinical context: Potassium 4.9 bun 103 creatinine 4.19 magnesium 2.2 Previous testing White count 6.4 hemoglobin 8.9 platelets 155 potassium 6.2 17 bun 102 creatinine 4.71 EKG tracing personally reviewed by me-shows poor R-wave progression, sinus rhythm nonspecific ST segment changes Chest x-ray film personally reviewed by me-pulmonary edema some cardiomegaly pleural effusion Assessment: -Acute on chronic kidney disease worsening, secondary to ATN from cardiorenal syndrome-slow to respond, on Lasix drip. -Severe fluid overload due to renal failure-slow to respond -Chronic kidney disease stage IV from diabetic nephropathy -Hyperkalemia due to renal failure -Metabolic acidosis due to renal failure -Diabetes mellitus type 2, chronically on insulin -Morbid obesity BMI 51 -Hypertensive urgency -Hypertension with chronic kidney disease -Chronic kidney disease 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 -Acute hypoxic respiratory failure from pulmonary edema Plan: Continue with Lasix drip. Discussed with Dr. Ruiz and the patient. Will need at least 24-48 hours of the same. Follow electrolytes closely.
[2019-10-10 16:45] LABS: Glucose,Whole Blood 147 mg/dL (75-99)
[2019-10-10] MEDS: INSULIN DETEMIR (LEVEMIR) 100 UNIT/ML SYR SQ SCH (20:40)
[2019-10-10 20:41] LABS: Glucose,Whole Blood 182 mg/dL (75-99)
[2019-10-11 06:10] LABS: Glucose,Whole Blood 117 mg/dL (75-99)
[2019-10-11] MEDS: INSULIN ASPART (NovoLOG) 100 UNIT/ML VIAL SQ SCH ×3 (06:11→17:36)
[2019-10-11 06:53] LABS: Calcium 7.2 mg/dL (8.4-10.2); Potassium 4.3 mmol/L (3.5-5.1)
[2019-10-11] MEDS: CARVEDILOL 12.5 MG TAB PO SCH ×2 (08:37→22:28)
[2019-10-11] MEDS: amLODIPine 10 MG TAB PO SCH (08:37)
[2019-10-11] MEDS: ENOXAPARIN 30 MG/0.3 ML SYRINGE SQ SCH (08:37)
[2019-10-11] MEDS: ALLOPURINOL 100 MG TAB PO SCH (08:38)
[2019-10-11] MEDS: FUROSEMIDE 100 MG in SODIUM CHLORIDE 0.9% 90 ML IV SCH ×2 (08:38→19:15)
[2019-10-11] MEDS: METOLAZONE 5 MG TAB PO SCH (08:38)
[2019-10-11] MEDS: SODIUM BICARBONATE TAB 650 MG TAB PO SCH ×3 (08:38→22:28)
--- NOTE | 2019-10-11 10:26 | XR ---
EXAMINATION TYPE: XR chest 2V DATE OF EXAM: 10/11/2019 COMPARISON: Prior chest 10/08/2019 HISTORY: Chest x-ray 10/08/2019 TECHNIQUE: Frontal and lateral views of the chest are obtained on 3 images. FINDINGS: Patient is rotated. Interstitium and central vascularity are increased. There is no pneumo thorax or pleural effusion. Heart size is likely enlarged. There are overlying cardiac leads. IMPRESSION: Correlate for pulmonary venous hypertension and interstitial edema.
[2019-10-11] MEDS: MULTIVITAMINS, THERA 1 EACH TAB PO SCH (11:46)
[2019-10-11 11:49] LABS: Glucose,Whole Blood 176 mg/dL (75-99)
--- NOTE | 2019-10-11 12:28 | PN ---
PROGRESS NOTE The patient is seen for followup for acute kidney injury and chronic kidney disease. His serum creatinine has been staying around 4.1 to 4.2 mg/dL. The patient is maintained on Lasix drip. He has had good urine output. His weight is down by 1.5 kg from yesterday. He currently denies any shortness of breath and is asking to go home. 24-hour urine output was 6.4 liters. PHYSICAL EXAMINATION: On examination today, blood pressure was 157/72, heart rate 76 per minute, he is afebrile. EXAMINATION OF THE HEART: S1 and S2. EXAMINATION OF THE LUNGS: Bilateral breath sounds are heard. ABDOMEN: Soft, obese. Examination of the lower extremities shows edema, 3+ with chronic skin changes and right BKA. LABS: Sodium 142, potassium 4.3, chloride 112, BUN 99, serum creatinine 4.2, magnesium 2.0, calcium 7.2. ASSESSMENT: 1. Acute kidney injury, cardiorenal, and acute tubular necrosis. Serum creatinine fairly stable. Good urine output. 2. Chronic kidney disease stage 4. Baseline creatinine 3 to 3.5 secondary to diabetic kidney disease. 3. Hyperkalemia associated with acute kidney injury, currently improved. 4. Chronic kidney disease mineral bone disorder. 5. Volume overload, slowly improving. I will check a chest x-ray and possibly switch to oral diuretics tomorrow. PLAN: Check chest x-ray. Continue with Lasix drip for now. Reassess volume status tomorrow for possible discharge soon. I have also advised the patient that he may need to start dialysis soon if he is not able to maintain his volume status and if there continues to repeated hospitalizations. MMODL / IJN: [id number] /
[2019-10-11 16:34] LABS: Glucose,Whole Blood 164 mg/dL (75-99)
--- NOTE | 2019-10-11 17:14 | P.PN ---
Progress Note - Text Progress Note Date: 10/11/19 Chief Complaint: Short of breath, swelling History of presenting complaint: This is a very pleasant 54-year-old patient of Dr. Hollingsworth. Chronic stable medical conditions include diabetes, hypertension, chronic kidney disease, peptic ulcer disease, right below-knee amputation for Charcot foot with abscess, and a full neuropathy, morbid obesity. Patient presents with progressive increasing swelling of the body increasing shortness of breath. Denies any fever and chills. No cough or sputum. Patient's bun and creatinine was 103 and 3.65 back in September 2017. more tired and rundown. Patient is put on IV Lasix drip. Has started to respond to the same. Today-continues on IV Lasix drip. Over 13 L-negative fluid balance. Breathing continues to improve. Eating better. Edema still present. Review of systems: Was done for constitutional, cardiovascular, GI, pulmonary. relevant finding as above Active Medications Allopurinol (Zyloprim) 100 mg PO DAILY [facility] Last Admin: 10/11/19 08:38 Dose: 100 mg Documented by: Amlodipine Besylate (Norvasc) 10 mg PO DAILY [facility] Last Admin: 10/11/19 08:37 Dose: 10 mg Documented by: Calcitriol (Rocaltrol) 0.25 mcg PO MOFR [facility] Last Admin: 10/08/19 09:30 Dose: 0.25 mcg Documented by: Carvedilol (Coreg) 25 mg PO BID [facility] Last Admin: 10/11/19 08:37 Dose: 25 mg Documented by: Enoxaparin Sodium (Lovenox) 30 mg SQ DAILY [facility] Last Admin: 10/11/19 08:37 Dose: 30 mg Documented by: Furosemide 100 mg/ Sodium (Chloride) 100 mls @ 10 mls/hr IV .Q10H [facility] Last Admin: 10/11/19 08:38 Dose: 10 mg/hr, 10 mls/hr Documented by: Insulin Aspart (Novolog) 0 unit SQ AC-TID [facility]; Protocol Last Admin: 10/11/19 12:23 Dose: 4 unit Documented by: Insulin Detemir (Levemir) 26 unit SQ HS [facility] Last Admin: 10/10/19 20:40 Dose: 26 unit Documented by: Metolazone (Zaroxolyn) 5 mg PO DAILY [facility] Last Admin: 10/11/19 08:38 Dose: 5 mg Documented by: Multivitamins (Theragran) 1 each PO DAILY@1200 [facility] Last Admin: 10/11/19 11:46 Dose: 1 each Documented by: Naloxone HCl (Narcan) 0.2 mg IV Q2M PRN PRN Reason: Opioid Reversal Sodium Bicarbonate (Sodium Bicarbonate Tab) 650 mg PO TID [facility] Last Admin: 10/11/19 15:05 Dose: 650 mg Documented by: Physical examination: VITAL SIGNS: 98.4, 73, 20, 134/68, 91% on 4 L GENERAL: BMI 51, sitting up in a chair, eating EYES: Pupils equal. Conjunctiva normal. HEENT: External appearance of nose and ears normal, oral cavity grossly normal. NECK: JVD unable to assess; masses not palpable. HEART: First and second heart sounds are normal; edema present. LUNGS: Respiratory rate increased; decreased breath sounds. ABDOMEN: Soft, nontender, liver spleen not palpable, no masses palpable Cartagena catheter. PSYCH: AO 3 EXTREMITY: Right below-knee amputation INVESTIGATIONS, reviewed in the clinical context: Potassium 4.3 bun 99 creatinine 4.24 Previous testing White count 6.4 hemoglobin 8.9 platelets 155 potassium 6.2 17 bun 102 creatinine 4.71 EKG tracing personally reviewed by me-shows poor R-wave progression, sinus rhythm nonspecific ST segment changes Chest x-ray film personally reviewed by me-pulmonary edema some cardiomegaly pleural effusion Assessment: -Acute on chronic kidney disease worsening, secondary to ATN from cardiorenal syndrome-slow to respond, on Lasix drip. -Severe fluid overload due to renal failure-slow to respond -Chronic kidney disease stage IV from diabetic nephropathy -Hyperkalemia due to renal failure -Metabolic acidosis due to renal failure -Diabetes mellitus type 2, chronically on insulin -Morbid obesity BMI 51 -Hypertensive urgency -Hypertension with chronic kidney disease -Chronic kidney disease 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 -Acute hypoxic respiratory failure from pulmonary edema Plan: Discussed with the patient. Continue with IV Lasix drip. Continue with fluid restriction. Follow electrolytes. Had a strep left lower extremity.
[2019-10-11 21:24] LABS: Glucose,Whole Blood 189 mg/dL (75-99)
[2019-10-11] MEDS: INSULIN DETEMIR (LEVEMIR) 100 UNIT/ML SYR SQ SCH (22:28)
[2019-10-12 06:06] LABS: Glucose,Whole Blood 132 mg/dL (75-99)
[2019-10-12] MEDS: FUROSEMIDE 100 MG in SODIUM CHLORIDE 0.9% 90 ML IV SCH ×4 (06:24→21:20)
[2019-10-12] MEDS: INSULIN ASPART (NovoLOG) 100 UNIT/ML VIAL SQ SCH ×3 (06:34→17:21)
[2019-10-12 07:01] LABS: Calcium 7.3 mg/dL (8.4-10.2); Potassium 4.5 mmol/L (3.5-5.1)
[2019-10-12] MEDS: ENOXAPARIN 40 MG/0.4 ML SYRINGE SQ SCH (08:26)
[2019-10-12] MEDS: ALLOPURINOL 100 MG TAB PO SCH (08:27)
[2019-10-12] MEDS: SODIUM BICARBONATE TAB 650 MG TAB PO SCH ×3 (08:27→21:19)
[2019-10-12] MEDS: METOLAZONE 5 MG TAB PO SCH (08:27)
[2019-10-12] MEDS: CARVEDILOL 12.5 MG TAB PO SCH ×2 (08:27→21:19)
[2019-10-12] MEDS: amLODIPine 10 MG TAB PO SCH (08:27)
[2019-10-12] MEDS: CALCITRIOL 0.25 MCG CAP PO SCH (08:28)
[2019-10-12 11:39] LABS: Glucose,Whole Blood 182 mg/dL (75-99)
--- NOTE | 2019-10-12 11:50 | PN ---
PROGRESS NOTE Patient is seen for followup for acute kidney injury on top of chronic kidney disease and severe volume overload. He remains on Lasix drip. Patient has been diuresing well. His weight is down by about 5 kg. He states he is feeling much better; 24 hour urine output was about 6.9 L. Patient has been asking to go home. His serum creatinine is staying at about 4.1 mg/dL. It is actually improved from a creatinine of 5.7 in September of 2017. Patient states he has been eating well. He denies any nausea or vomiting. PHYSICAL EXAMINATION: On examination today, blood pressure was 127/61, heart rate 74 per minute, patient is afebrile. Examination of the heart S1, S2. Examination of lungs, decreased breath sounds at the bases. Abdomen is soft, obese. Examination of the lower extremities shows right BKA 3 to 4+ edema, left lower extremity with chronic skin changes. [employer] P[employer]ER exam grossly intact. LABS: Show sodium 143, potassium 4.5, chloride 111, CO2 is 23, BUN 101, serum creatinine 4.1. ASSESSMENT: 1. Acute kidney injury, mainly cardiorenal currently slowly improving. Continue with the Lasix drip. Patient wants to go home. Initially we were discussing possible discharge; however, we will keep him over the weekend for continued diuresis. I have also advised him that he may need renal replacement therapy if his volume status or renal function does not improve or if he has recurrent admissions for volume overload. 2. Severe volume overload, maintained on Lasix drip and daily Zaroxolyn, which I will continue for now. 3. Chronic kidney disease stage IV, secondary to diabetic kidney disease, baseline creatinine 3-3.5. 4. CKD mineral bone disorder. 5. Hyperkalemia associated with acute kidney injury, currently improved with ongoing diuresis. PLAN: Continue with Lasix drip, stay over the weekend for ongoing diuresis. Monitor closely as outpatient to start renal replacement therapy if volume status or renal function does not continue to improve. Patient has been advised regarding fluid restriction, avoiding [id number] foods, post discharge. He will be started on Demadex possibly 40 mg b.i.d. initially and then 20 mg b.i.d. based on his volume status around the time of discharge and his renal function. MMODL / IJN: [id number] /
[2019-10-12] MEDS: MULTIVITAMINS, THERA 1 EACH TAB PO SCH (13:03)
[2019-10-12 13:04] VITALS: BMI 48.0
[2019-10-12 16:51] LABS: Glucose,Whole Blood 138 mg/dL (75-99)
[2019-10-12 20:39] LABS: Glucose,Whole Blood 213 mg/dL (75-99)
[2019-10-12] MEDS: INSULIN DETEMIR (LEVEMIR) 100 UNIT/ML SYR SQ SCH (21:19)
--- NOTE | 2019-10-12 22:01 | P.PN ---
Progress Note - Text Progress Note Date: 10/12/19 Chief Complaint: Short of breath, swelling History of presenting complaint: This is a very pleasant 54-year-old patient of Dr. Hollingsworth. Chronic stable medical conditions include diabetes, hypertension, chronic kidney disease, peptic ulcer disease, right below-knee amputation for Charcot foot with abscess, and a full neuropathy, morbid obesity. Patient presents with progressive increasing swelling of the body increasing shortness of breath. Denies any fever and chills. No cough or sputum. Patient's bun and creatinine was 103 and 3.65 back in September 2017. more tired and rundown. Patient is put on IV Lasix drip. Has started to respond to the same. Today-continues on IV Lasix drip. Over 17 L-negative fluid balance. still significant edema is present. Sitting up. Review of systems: Was done for constitutional, cardiovascular, GI, pulmonary. relevant finding as above Active Medications Allopurinol (Zyloprim) 100 mg PO DAILY [facility] Last Admin: 10/12/19 08:27 Dose: 100 mg Documented by: Amlodipine Besylate (Norvasc) 10 mg PO DAILY [facility] Last Admin: 10/12/19 08:27 Dose: 10 mg Documented by: Calcitriol (Rocaltrol) 0.25 mcg PO MOFR [facility] Last Admin: 10/12/19 08:28 Dose: 0.25 mcg Documented by: Carvedilol (Coreg) 25 mg PO BID [facility] Last Admin: 10/12/19 21:19 Dose: 25 mg Documented by: Enoxaparin Sodium (Lovenox) 40 mg SQ DAILY [facility] Last Admin: 10/12/19 08:26 Dose: 40 mg Documented by: Furosemide 100 mg/ Sodium (Chloride) 100 mls @ 10 mls/hr IV .Q10H [facility] Last Admin: 10/12/19 21:20 Dose: 10 mg/hr, 10 mls/hr Documented by: Insulin Aspart (Novolog) 0 unit SQ AC-TID [facility]; Protocol Last Admin: 10/12/19 17:21 Dose: 1 unit Documented by: Insulin Detemir (Levemir) 26 unit SQ HS [facility] Last Admin: 10/12/19 21:19 Dose: 26 unit Documented by: Metolazone (Zaroxolyn) 5 mg PO DAILY [facility] Last Admin: 03/27/20 08:27 Dose: 5 mg Documented by: Multivitamins (Theragran) 1 each PO DAILY@1200 [facility] Last Admin: 10/12/19 13:03 Dose: 1 each Documented by: Naloxone HCl (Narcan) 0.2 mg IV Q2M PRN PRN Reason: Opioid Reversal Sodium Bicarbonate (Sodium Bicarbonate Tab) 650 mg PO TID [facility] Last Admin: 10/12/19 21:19 Dose: 650 mg Documented by: Physical examination: VITAL SIGNS: 98.6, 70, 16, 138/64, 93% on room air GENERAL: BMI 51, sitting up in a chair, awake EYES: Pupils equal. Conjunctiva normal. HEENT: External appearance of nose and ears normal, oral cavity grossly normal. NECK: JVD unable to assess; masses not palpable. HEART: First and second heart sounds are normal; edema present. LUNGS: Respiratory rate increased; decreased breath sounds. ABDOMEN: Soft, nontender, liver spleen not palpable, no masses palpable Cartagena catheter. PSYCH: AO 3 EXTREMITY: Right below-knee amputation INVESTIGATIONS, reviewed in the clinical context: potassium 4.5 , [id number] creatinine 4.15 Previous testing White count 6.4 hemoglobin 8.9 platelets 155 potassium 6.2 17 bun 102 creatinine 4.71 EKG tracing personally reviewed by me-shows poor R-wave progression, sinus rhythm nonspecific ST segment changes Chest x-ray film personally reviewed by me-pulmonary edema some cardiomegaly pleural effusion Assessment: -Acute on chronic kidney disease worsening, secondary to ATN from cardiorenal syndrome-slow to respond, on Lasix drip. -Severe fluid overload due to renal failure-slow to respond -Chronic kidney disease stage IV from diabetic nephropathy -Hyperkalemia due to renal failure -Metabolic acidosis due to renal failure -Diabetes mellitus type 2, chronically on insulin -Morbid obesity BMI 51 -Hypertensive urgency -Hypertension with chronic kidney disease -Chronic kidney disease 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 -Acute hypoxic respiratory failure from pulmonary edema Plan: patient has been very keen to go home. Discussed at length Dr. Parra. Probably another 24-40 does of Lasix drip will be beneficial to the patient. Also spoke at length with the patient and explained him the rationale for continued IV Lasix drip. Patient continues to diurese well. Still has significant edema. Patient understands the same. Total time spent today was over 40 minutes with over 25 minutes in discussion
[2019-10-13 06:12] LABS: Glucose,Whole Blood 120 mg/dL (75-99)
[2019-10-13] MEDS: INSULIN ASPART (NovoLOG) 100 UNIT/ML VIAL SQ SCH ×3 (06:27→17:21)
[2019-10-13 07:47] LABS: Calcium 7.4 mg/dL (8.4-10.2); Potassium 4.5 mmol/L (3.5-5.1)
[2019-10-13] MEDS: CARVEDILOL 12.5 MG TAB PO SCH ×2 (09:28→20:40)
[2019-10-13] MEDS: MULTIVITAMINS, THERA 1 EACH TAB PO SCH (09:28)
[2019-10-13] MEDS: ENOXAPARIN 40 MG/0.4 ML SYRINGE SQ SCH (09:28)
[2019-10-13] MEDS: amLODIPine 10 MG TAB PO SCH (09:28)
[2019-10-13] MEDS: SODIUM BICARBONATE TAB 650 MG TAB PO SCH ×3 (09:28→20:40)
[2019-10-13] MEDS: ALLOPURINOL 100 MG TAB PO SCH (09:28)
[2019-10-13] MEDS: METOLAZONE 5 MG TAB PO SCH (09:28)
--- NOTE | 2019-10-13 11:20 | P.PN ---
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 He is on oxygen with a nasal cannula and is unable to come off of it as he decompensated with saturation in the 88% drained this morning His urine output is significant. [id number] last 24 hours with a Cartagena catheter He has a right-sided amputation. He has significant edema on the left. Other than this is denying any nausea vomiting has a good appetite Objective - Vital Signs Vital signs: Vital Signs Temp 98.6 F 10/12/19 15:35 Pulse 64 10/13/19 04:00 Resp 18 10/13/19 04:00 BP 140/78 10/12/19 20:00 Pulse Ox 92 L 10/12/19 20:00 Intake & Output 10/12/19 10/13/19 10/13/19 18:59 06:59 18:59 Intake Total 1170.333 278.167 240 Output Total 1800 1800 1200 Balance -629.667 -1521.833 -960 Weight 156.4 kg 155.7 kg Intake: Intake, IV Titration 90.333 38.167 Amount Furosemide 100 mg In 90.333 38.167 Sodium Chloride 0.9% 90 ml @ 10 MG/HR 10 mls/hr IV .Q10H [facility] Rx#: [id number] Oral 1080 240 240 Output: Urine 1800 1800 1200 Other: Voiding Method Indwelling Catheter Indwelling Catheter On examination is awake alert oriented comfortable On O2 nasal cannula HEENT exam no JVP neck is supple no facial asymmetry Lungs are significant for diminished air entry bilaterally with an occasional coarse crackle. Heart sounds are unremarkable no murmur rub gallop Abdomen soft nontender obese Extremity exam was amputation on the right with a prosthetic leg. Left has significant edema Neurologically awake alert oriented but generalized weakness - Labs CBC & Chem 7: 10/07/19 16:50 10/13/19 07:09 Labs: Abnormal Lab Results - Last 24 Hours (Table) 10/12/19 10/12/19 10/12/19 Range/Units 11:38 16:50 20:37 BUN (9-20) mg/dL Creatinine (0.66-1.25) mg/dL Glucose (74-99) mg/dL POC Glucose (mg/dL) 182 H 138 H 213 H (75-99) mg/dL Calcium (8.4-10.2) mg/dL 10/13/19 10/13/19 Range/Units 06:11 07:09 BUN 98 H (9-20) mg/dL Creatinine 4.07 H (0.66-1.25) mg/dL Glucose 107 H (74-99) mg/dL POC Glucose (mg/dL) 120 H (75-99) mg/dL Calcium 7.4 L (8.4-10.2) mg/dL Microbiology - Last 24 Hours (Table) 10/07/19 16:50 Blood Culture - Preliminary Blood No Growth after 120 hours Assessment and Plan Plan: Impression 1. Acute kidney injury secondary to cardiorenal syndrome. Creatinine is peaked at 4.84 on 10/07/2019 and is now down to 4.07 with aggressive diuresis resp onding. 2. Chronic kidney disease diabetic nephropathy creatinine baseline is about 3.65 on 10/14/2017. The next creatinine available is 2 years later on 10/07/2019 when it was 4.71. So the true baseline is unclear. 3. Edema improving 4. Blood pressure nearly at target 140/78 5. Anemia with hemoglobin of 8.9 dated 10/07/2019. Recommendation 1. Maintain IV Lasix drip 2. Will check CBC tomorrow. 3. Check iron saturation
[2019-10-13 11:34] LABS: Glucose,Whole Blood 166 mg/dL (75-99)
[2019-10-13 16:46] LABS: Glucose,Whole Blood 179 mg/dL (75-99)
--- NOTE | 2019-10-13 17:17 | P.PN ---
Progress Note - Text Progress Note Date: 10/13/19 Chief Complaint: Short of breath, swelling History of presenting complaint: This is a very pleasant 54-year-old patient of Dr. Hollingsworth. Chronic stable medical conditions include diabetes, hypertension, chronic kidney disease, peptic ulcer disease, right below-knee amputation for Charcot foot with abscess, and a full neuropathy, morbid obesity. Patient presents with progressive increasing swelling of the body increasing shortness of breath. Denies any fever and chills. No cough or sputum. Patient's bun and creatinine was 103 and 3.65 back in September 2017. more tired and rundown. Patient is put on IV Lasix drip. Has started to respond to the same. Today-continues on IV Lasix drip. Over 20 L-negative fluid balance. Breathing improving. Feeling better.. Review of systems: Was done for constitutional, cardiovascular, GI, pulmonary. relevant finding as above Active Medications Allopurinol (Zyloprim) 100 mg PO DAILY [facility] Last Admin: 10/13/19 09:28 Dose: 100 mg Documented by: Amlodipine Besylate (Norvasc) 10 mg PO DAILY [facility] Last Admin: 10/13/19 09:28 Dose: 10 mg Documented by: Calcitriol (Rocaltrol) 0.25 mcg PO MOFR [facility] Last Admin: 10/12/19 08:28 Dose: 0.25 mcg Documented by: Carvedilol (Coreg) 25 mg PO BID [facility] Last Admin: 10/13/19 09:28 Dose: 25 mg Documented by: Enoxaparin Sodium (Lovenox) 40 mg SQ DAILY [facility] Last Admin: 10/13/19 09:28 Dose: 40 mg Documented by: Furosemide 100 mg/ Sodium (Chloride) 100 mls @ 10 mls/hr IV .Q10H [facility] Last Admin: 10/12/19 21:20 Dose: 10 mg/hr, 10 mls/hr Documented by: Insulin Aspart (Novolog) 0 unit SQ AC-TID [facility]; Protocol Last Admin: 10/13/19 12:17 Dose: 3 unit Documented by: Insulin Detemir (Levemir) 26 unit SQ HS [facility] Last Admin: 10/12/19 21:19 Dose: 26 unit Documented by: Metolazone (Zaroxolyn) 5 mg PO DAILY [facility] Last Admin: 10/13/19 09:28 Dose: 5 mg Documented by: Multivitamins (Theragran) 1 each PO DAILY@1200 [facility] Last Admin: 10/13/19 09:28 Dose: 1 each Documented by: Naloxone HCl (Narcan) 0.2 mg IV Q2M PRN PRN Reason: Opioid Reversal Sodium Bicarbonate (Sodium Bicarbonate Tab) 650 mg PO TID [facility] Last Admin: 10/13/19 14:59 Dose: 650 mg Documented by: Physical examination: VITAL SIGNS: 98.4, 72, 20, 133/63, 91% on room air GENERAL:, sitting up in a chair, awake EYES: Pupils equal. Conjunctiva normal. HEENT: External appearance of nose and ears normal, oral cavity grossly normal. NECK: JVD unable to assess; masses not palpable. HEART: First and second heart sounds are normal; edema present. LUNGS: Respiratory rate increased; decreased breath sounds. ABDOMEN: Soft, nontender, liver spleen not palpable, no masses palpable Cart[place]a catheter. PSYCH: AO 3 EXTREMITY: Right below-knee amputation INVESTIGATIONS, reviewed in the clinical context: Potassium 4.5 bun 98 creatinine 4.07 Previous testing White count 6.4 hemoglobin 8.9 platelets 155 potassium 6.2 17 bun 102 creatinine 4.71 EKG tracing personally reviewed by me-shows poor R-wave progression, sinus rhythm nonspecific ST segment changes Chest x-ray film personally reviewed by me-pulmonary edema some cardiomegaly pleural effusion Assessment: -Acute on chronic kidney disease worsening, secondary to ATN from cardiorenal syndrome-slow to respond, on Lasix drip. -Severe fluid overload due to renal doing better -Chronic kidney disease stage IV from diabetic nephropathy -Hyperkalemia due to renal failure -Metabolic acidosis due to renal failure -Diabetes mellitus type 2, chronically on insulin -Morbid obesity BMI 51 -Hypertensive urgency -Hypertension with chronic kidney disease -Chronic kidney disease 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 -Acute hypoxic respiratory failure from pulmonary edema Plan: Patient responding well to Lasix drip. We will do another 24 hours Lasix drip. Patient should be able to be discharged tomorrow. Repeat labs in the morning. Care was discussed with the patient.
[2019-10-13 20:21] LABS: Glucose,Whole Blood 179 mg/dL (75-99)
[2019-10-13] MEDS: INSULIN DETEMIR (LEVEMIR) 100 UNIT/ML SYR SQ SCH (20:40)
[2019-10-13] MEDS: FUROSEMIDE 100 MG in SODIUM CHLORIDE 0.9% 90 ML IV SCH (20:41)
[2019-10-13] MEDS: BACITRACIN 500 UNIT/GM OINT 28.4 GM TUBE TOPICAL SCH (22:02)
[2019-10-14] MEDS: FUROSEMIDE 100 MG in SODIUM CHLORIDE 0.9% 90 ML IV SCH (05:53)
[2019-10-14 06:09] LABS: Glucose,Whole Blood 97 mg/dL (75-99)
[2019-10-14] MEDS: INSULIN ASPART (NovoLOG) 100 UNIT/ML VIAL SQ SCH ×2 (06:18→11:41)
[2019-10-14 07:47] LABS: Calcium 7.4 mg/dL (8.4-10.2); Potassium 4.3 mmol/L (3.5-5.1)
[2019-10-14 08:29] VITALS: RESP 20; TEMP 98.7
[2019-10-14 08:32] LABS: Anisocytosis Slight; Basophils % (A) 0 %; Eosinophils # (A) 0.2 k/uL (0-0.7); Eosinophils % (A) 4 %; HCT 29.8 % (39.0-53.0); HGB 9.2 gm/dL (13.0-17.5); Hypochromasia Moderate; Lymphocytes # (A) 0.7 k/uL (1.0-4.8); Lymphocytes % (A) 14 %; MCH 29.8 pg (25.0-35.0); MCHC 30.8 g/dL (31.0-37.0); MCV 96.8 fL (80.0-100.0); Mean Platelet Volume 8.3; Monocytes # (A) 0.5 k/uL (0-1.0); Monocytes % (A) 9 %; Neutrophils # (A) 3.5 k/uL (1.3-7.7); Neutrophils % (A) 69 %; Platelet Count 137 k/uL (150-450); RBC 3.08 m/uL (4.30-5.90); RDW 16.2 % (11.5-15.5); WBC 5.1 k/uL (3.8-10.6)
[2019-10-14] MEDS: ALLOPURINOL 100 MG TAB PO SCH (09:04)
[2019-10-14] MEDS: amLODIPine 10 MG TAB PO SCH (09:04)
[2019-10-14] MEDS: ENOXAPARIN 40 MG/0.4 ML SYRINGE SQ SCH (09:04)
[2019-10-14] MEDS: BACITRACIN 500 UNIT/GM OINT 28.4 GM TUBE TOPICAL SCH (09:05)
[2019-10-14] MEDS: METOLAZONE 5 MG TAB PO SCH (09:05)
[2019-10-14] MEDS: MULTIVITAMINS, THERA 1 EACH TAB PO SCH (09:05)
[2019-10-14] MEDS: CARVEDILOL 12.5 MG TAB PO SCH (09:05)
[2019-10-14] MEDS: SODIUM BICARBONATE TAB 650 MG TAB PO SCH (09:05)
--- NOTE | 2019-10-14 10:54 | P.PN ---
Subjective Progress Note Date: 10/14/19 Principal diagnosis: This is a 54-year-old male with cardiorenal syndrome, chronic kidney disease secondary to diabetic nephropathy stage IV. His baseline creatinines about 4 which she is stabilized here. He was He was started on IV Lasix drip and is responding very well with urine output between 3.5-6 L per day with the reduction in edema and feeling better He has chronic right-sided remote amputation but he has significant edema remaining on the left leg. He has a good appetite no nausea vomiting diarrhea. Objective - Vital Signs Vital signs: Vital Signs Temp 98.7 F 10/14/19 08:00 Pulse 73 10/14/19 08:00 Resp 20 10/14/19 08:00 BP 150/70 10/14/19 08:00 Pulse Ox 95 10/14/19 08:00 Intake & Output 10/13/19 10/14/19 10/14/19 18:59 06:59 18:59 Intake Total 940 532 360 Output Total 3200 2525 Balance -2259 360 Weight 133.8 kg Intake: Intake, IV Titration 100 92 Amount Furosemide 100 mg In 100 92 Sodium Chloride 0.9% 90 ml @ 10 MG/HR 10 mls/hr IV .Q10H [facility] Rx#: [id number] Oral 840 440 360 Output: Urine 3200 2525 Other: Voiding Method Indwelling Catheter Indwelling Catheter Indwelling Catheter Exertion awake alert oriented comfortable HEENT exam no JVP neck supple no facial asymmetry Lungs are clear to auscultation but poor air entry bilaterally Heart sounds are unremarkable for any murmur rub gallop Abdomen soft obese difficult to examine Extremity exam reveals remote right amputation. Significant edema 2-3+ remains on the left leg Neurologically awake alert oriented - Labs CBC & Chem 7: 10/14/19 06:56 10/14/19 06:56 Labs: Abnormal Lab Results - Last 24 Hours (Table) 10/13/19 10/13/19 10/13/19 Range/Units 11:32 16:45 20:18 RBC (4.30-5.90) m/uL Hgb (13.0-17.5) gm/dL Hct (39.0-53.0) % MCHC (31.0-37.0) g/dL RDW (11.5-15.5) % Plt Count (150-450) k/uL Lymphocytes # (1.0-4.8) k/uL BUN (9-20) mg/dL Creatinine (0.66-1.25) mg/dL POC Glucose (mg/dL) 166 H 179 H 179 H (75-99) mg/dL Calcium (8.4-10.2) mg/dL 10/14/19 10/14/19 Range/Units 06:56 06:56 RBC 3.08 L (4.30-5.90) m/uL Hgb 9.2 L (13.0-17.5) gm/dL Hct 29.8 L (39.0-53.0) % MCHC 30.8 L (31.0-37.0) g/dL RDW 16.2 H (11.5-15.5) % Plt Count 137 L (150-450) k/uL Lymphocytes # 0.7 L (1.0-4.8) k/uL BUN 99 H (9-20) mg/dL Creatinine 4.10 H (0.66-1.25) mg/dL POC Glucose (mg/dL) (75-99) mg/dL Calcium 7.4 L (8.4-10.2) mg/dL Microbiology - Last 24 Hours (Table) 10/07/19 16:50 Blood Culture - Final Blood No Growth after 144 hours Assessment and Plan Plan: Impression 1. Acute kidney injury secondary to cardiorenal syndrome. On IV Lasix drip with good urine output, Creatinine is peaked at 4.84 on 10/07/2019 and is now down to 4.1 with aggressive diuresis responding. 2. Chronic kidney disease diabetic nephropathy creatinine baseline is about 3.65 on 10/14/2017. The next creatinine available is 2 years later on 10/07/2019 when it was 4.71. So the true baseline is unclear. 3. Edema improving 4. Blood pressure nearly at target 140/78 5. Anemia with hemoglobin of 8.9 dated 10/07/2019. Recommendation 1. Will discontinue IV Lasix drip and try torsemide 100 mg a day and metolazone 10 mg by mouth and see if he is able to maintain his urine output 2. Would reduce the amlodipine from 10 mg to 5 mg because of its propensity to cause edema 3. Pending iron saturation 4. May be able to be discharged tomorrow
[2019-10-14] MEDS ORDERED: TORSEMIDE 20 MG TAB PO SCH (11:00)
[2019-10-14 11:35] LABS: Glucose,Whole Blood 127 mg/dL (75-99)
[2019-10-14 12:35] VITALS: BP 139/67; PULSE 71
--- NOTE | 2019-10-14 20:30 | P.DS ---
Providers Date of admission: 10/07/19 17:42 Expected date of discharge: 10/14/19 Attending physician: Shamir Mojica Consults: 10/07/19 17:58 Consult Physician Stat Consulting Provider: Ruben Ruiz Consult Reason/Comments: Hyperkalemia, chronic kidney disease, fluid overload Do you want consulting provider notified?: Yes 10/08/19 16:39 Consult Physician Stat Consulting Provider: Bipin Drew Consult Reason/Comments: respiratory status change Do you want consulting provider notified?: Already Contacted Primary care physician: [facility] Course: Chief Complaint: Short of breath, swelling History of presenting complaint: This is a very pleasant 54-year-old patient of Dr. Hollingsworth. Chronic stable medical conditions include diabetes, hypertension, chronic kidney disease, peptic ulcer disease, right below-knee amputation for Charcot foot with abscess, and a full neuropathy, morbid obesity. Patient presents with progressive increasing swelling of the body increasing shortness of breath. Denies any fever and chills. No cough or sputum. Patient's bun and creatinine was 103 and 3.65 back in September 2017. more tired and rundown. Patient is put on IV Lasix drip. Has started to respond to the same. Today-changed over to Demadex per nephrology. Patient very keen to go home. A total of 24 L in negative fluid balance is admission. Fluid restriction was discussed. Questions were answered. We'll follow with nephrology as outpatient. Discussion and discharge planning more than 35 minutes Consultation: Nephrology Dr. Drew from pulmonary Physical examination: VITAL SIGNS: 98.7, 73, 20, 139/67, 92% on room air GENERAL:, sitting up in a chair, more comfortable EYES: Pupils equal. Conjunctiva normal. HEENT: External appearance of nose and ears normal, oral cavity grossly normal. NECK: JVD unable to assess; masses not palpable. HEART: First and second heart sounds are normal; edema present. LUNGS: Respiratory rate increased; decreased breath sounds. ABDOMEN: Soft, nontender, liver spleen not palpable, no masses palpable Cart[place] catheter. PSYCH: AO 3 EXTREMITY: Right below-knee amputation INVESTIGATIONS, reviewed in the clinical context: Potassium 4.3 creatinine 4.10 hemoglobin 9.2 platelets 137 Previous testing White count 6.4 hemoglobin 8.9 platelets 155 potassium 6.2 17 bun 102 creatinine 4.71 EKG tracing personally reviewed by me-shows poor R-wave progression, sinus rhythm nonspecific ST segment changes Chest x-ray film personally reviewed by me-pulmonary edema some cardiomegaly pleural effusion Assessment: -Acute on chronic kidney disease worsening, secondary to ATN from cardiorenal POA -Severe fluid overload due to renal doing better, POA -Chronic kidney disease stage IV from diabetic nephropathy -Hyperkalemia due to renal failure -Metabolic acidosis due to renal failure -Diabetes mellitus type 2, chronically on insulin -Morbid obesity BMI 51 -Hypertensive urgency -Hypertension with chronic kidney disease -Chronic kidney disease 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 -Acute hypoxic respiratory failure from pulmonary edema, POA Disposition: Home Patient Condition at Discharge: Stable Plan - Discharge Summary Discharge Rx Participant: No New Discharge Prescriptions: New Bacitracin Oint 1 applic TOPICAL BID applic Torsemide [Demadex] 80 mg PO DAILY #100 tab amLODIPine [Norvasc] 5 mg PO DAILY #30 tab Metolazone [Zaroxolyn] 5 mg PO DAILY #30 tab Continue Ferrous Sulfate [Iron (65 MG Elemental)] 325 mg PO BID Multivitamin [Men's Multi-Vitamin] 1 tab PO DAILY Carvedilol [Coreg] 25 mg PO BID #60 tablet Ergocalciferol [Vitamin D2 (DRISDOL)] 50,000 unit PO MALIK Sodium Bicarbonate Tab 650 mg PO DAILY Calcitriol 0.25 mcg PO MOFR Allopurinol [Zyloprim] 100 mg PO DAILY Changed Insulin Glargine,Hum.rec.anlog [Basaglar Kwikpen U-100] 22 unit SQ HS #0 Discontinued cloNIDine HCL 0.3 mg PO Q8H Furosemide [Lasix] 40 mg PO DAILY amLODIPine [Norvasc] 10 mg PO DAILY Sodium Polystyrene Sulfon/Sorb [Kionex 15 gm/60 ml Suspension] 15 gm PO ONCE PRN PRN Reason: HIGH POTASSIUM Discharge Medication List Ferrous Sulfate [Iron (65 MG Elemental)] 325 mg PO BID 10/10/17 [History] Multivitamin [Men's Multi-Vitamin] 1 tab PO DAILY 10/10/17 [History] Carvedilol [Coreg] 25 mg PO BID #60 tablet 10/14/17 [Rx] Allopurinol [Zyloprim] 100 mg PO DAILY 10/07/19 [History] Calcitriol 0.25 mcg PO MOFR 10/07/19 [History] Ergocalciferol [Vitamin D2 (DRISDOL)] 50,000 unit PO MALIK 10/07/19 [History] Sodium Bicarbonate Tab 650 mg PO DAILY 10/07/19 [History] Bacitracin Oint 1 applic TOPICAL BID applic 10/14/19 [Rx] Insulin Glargine,Hum.rec.anlog [Basaglar Kwikpen U-100] 22 unit SQ HS #0 10/14/19 [Rx] Metolazone [Zaroxolyn] 5 mg PO DAILY #30 tab 10/14/19 [Rx] Torsemide [Demadex] 80 mg PO DAILY #100 tab 10/14/19 [Rx] amLODIPine [Norvasc] 5 mg PO DAILY #30 tab 10/14/19 [Rx] Follow up Appointment(s)/Referral(s): Bipin Drew DO [Doctor of Osteopathic Medicine] - (pulmonary - follow up with primary care physician first) Ruben Ruiz DO [STAFF PHYSICIAN] - 1 Week (Office will call with follow up appointment. ) Marlin Hutson, GENO [REFERRING] - 10/16/19 9:00 am (Office will call you regarding office appointment, this might be a telephone appointment depending on what your physician thinks is best. ) Patient Instructions/Handouts: Pulmonary Edema (ED), Acute Kidney Injury (DC), Chronic Kidney Disease Diet (DC) Activity/Diet/Wound Care/Special Instructions: bmp - 5 days fluid restrict 1800 cc /day
[2019-10-15] MEDS ORDERED: amLODIPine 5 MG TAB PO SCH (09:00)
[2019-10-15 10:44] LABS: % Iron Saturation 7.31 (15.00-50.00)
--- NOTE | 2019-10-16 14:43 | CDI ---
Documentation Clarification Form Date: 10/16/19 From: Kera Chong CCS Phone: If you have a question about this query, please contact Rae Hernandez, Electric Clock Mechanic at [phone] between 8am and 5pm. Admit Date: 10/07/19 Discharge Date:10/14/19 Patient Name: Dennis Vega Visit Number: [id number] ATTENTION: The Clinical Documentation Specialists (CDI) and [facility] Coding Staff appreciate your assistance in clarifying documentation. Please respond to the clarification below the line at the bottom and electronically sign. The CDI & [facility] Coding staff will review the response and follow-up if needed. Please note: Queries are made part of the Legal Health Record. If you have any questions, please contact the author of this message via ITS. Dear Dr. Mojica, CHF is documented in the PNs. Acute hypoxemic respiratory failure related to fluid overload and congestive heart failure with an unknown ejection fraction is documented in the PNs. History/Risk Factors: HHD, ATN, DM, Morbid obesity Clinical Indicators: Pulmonary edema, Volume overload VS/Pulse OX: BP 174/72, RR 18, SC 66, O2 Sat 85 BNP: 21,300 Chest X Ray: There is evidence of pneumonia that is probably in the left lower lobe posteriorly.Exam limited by patient's size. Treatment: Lasix 60 mg IV In your professional opinion, can you please clarify the acuity and type of CHF if known? Systolic Heart Failure: Acute Chronic Acute on Chronic Diastolic Heart Failure: Acute Chronic Acute on Chronic Systolic & Diastolic Heart Failure: Acute Chronic Acute on Chronic Heart Failure Unable to Determine Other, please specify No congestive heart failure MTDD
== END 2019-10-14 15:31 | disposition home or self-care (01) | DRG 682 ==
LOC: EC 16:17 → 3SCARD 17:42
PROVIDERS: ADMIT Hospitalist; ATTEND Hospitalist
PROC: 5A09557 Assistance with Respiratory Ventilation, Greater than 96 Consecutive Hours, Continuous Positive Airway Pressure (ICD-10-PCS; principal; 2019-10-08)
DX: N17.0 Acute kidney failure with tubular necrosis (principal); J96.01 Acute respiratory failure with hypoxia; E87.2 Acidosis; Z68.43 Body mass index [BMI] 50.0-59.9, adult; L03.116 Cellulitis of left lower limb; L03.115 Cellulitis of right lower limb; J81.1 Chronic pulmonary edema; D63.1 Anemia in chronic kidney disease; E83.51 Hypocalcemia; E83.9 Disorder of mineral metabolism, unspecified; E11.22 Type 2 diabetes mellitus with diabetic chronic kidney disease; I13.10 Hypertensive heart and chronic kidney disease without heart failure, with stage 1 through stage 4 chronic kidney disease, or unspecified chronic kidney disease; N18.4 Chronic kidney disease, stage 4 (severe); E11.40 Type 2 diabetes mellitus with diabetic neuropathy, unspecified; E87.70 Fluid overload, unspecified; E87.5 Hyperkalemia; E87.6 Hypokalemia; E66.01 Morbid (severe) obesity due to excess calories; I16.0 Hypertensive urgency; M10.9 Gout, unspecified; G47.33 Obstructive sleep apnea (adult) (pediatric); Z71.3 Dietary counseling and surveillance; Z79.899 Other long term (current) drug therapy; Z79.4 Long term (current) use of insulin; Z87.19 Personal history of other diseases of the digestive system; Z89.511 Acquired absence of right leg below knee; Z98.890 Other specified postprocedural states; Z87.11 Personal history of peptic ulcer disease
CPT/HCPCS: 36415; 36600; 71045; 71046; 80048; 80053; 82805; 83540; 83550; 83605; 83735; 83880; 84484; 85025; 85610; 85730; 87040; 93005; 94660; 96365; 96375; 99284

== ENCOUNTER 2020-05-09 06:35 | Day surgery (SDC) | payer OTHER ==
[2020-05-06 15:42] VITALS: BMI 45.1
[~2020-05-09 06:35] MED LIST: ACETAMINOPHEN TAB 500 MG TAB PO ONE; DEXAMETHASONE SOD PHOSPHATE 10 MG/ML 1 ML VIAL IV ONE; HEPARIN SODIUM,PORCINE 5,000 UNIT/ML 1 ML VIAL SQ ONE; LACTATED RINGERS 1,000 ML IV SCH; LIDOCAINE 1% (10MG/ML) FOR IV START INTRADERMA PRN; ceFAZolin 3 GM in SODIUM CHLORIDE 0.9% 100 ML IVPB ONE
[2020-05-09] MEDS ORDERED: ONDANSETRON 4 MG/2 ML VIAL ONE (07:12)
[2020-05-09 07:26] LABS: Glucose,Whole Blood 98 mg/dL (75-99)
--- NOTE | 2020-05-09 07:39 | P.GSHP ---
History of Present Illness H&P Date: 05/09/20 Chief Complaint: renal failure Patient here today for elective peritoneal dialysis catheter placement. No changes to the recent H&P from 03/20. Patient with history of previous ventral hernia repair with mesh. He has not had peritoneal dialysis previously. Past Medical History Past Medical History: Diabetes Mellitus, Hypertension, Renal Disease, Vascular Disorder Additional Past Medical History / Comment(s): prosthesis rt below knee, chonic anemia, heart mumur, bleeding ulcer History of Any Multi-Drug Resistant Organisms: None Reported Past Surgical History: Hernia Repair Additional Past Surgical History / Comment(s): sixto eye sx for scar tissue, right leg below knee amputation Past Anesthesia/Blood Transfusion Reactions: No Reported Reaction Smoking Status: Current some day smoker - Past Family History Mother Family Medical History: No Reported History Father Family Medical History: No Reported History Medications and Allergies Home Medications Medication Instructions Recorded Confirmed Type Ferrous Sulfate [Iron (65 MG 325 mg PO BID 10/10/17 05/09/20 History Elemental)] Multivitamin [Men's Multi-Vitamin] 1 tab PO DAILY 10/10/17 05/09/20 History Carvedilol [Coreg] 25 mg PO BID #60 tablet 10/14/17 05/09/20 Rx Allopurinol [Zyloprim] 100 mg PO DAILY 10/07/19 05/09/20 History Ergocalciferol [Vitamin D2 50,000 unit PO MALIK 10/07/19 05/09/20 History (DRISDOL)] Sodium Bicarbonate Tab 1,300 mg PO BID 10/07/19 05/09/20 History calcitrioL [Calcitriol] 0.25 mcg PO MOTUWETHFR 10/07/19 05/09/20 History Torsemide [Demadex] 80 mg PO DAILY #100 tab 10/14/19 05/09/20 Rx metOLazone [Zaroxolyn] 5 mg PO DAILY #30 tab 10/14/19 05/09/20 Rx Calcium Acetate [Phoslo] 667 mg PO TID-W/MEALS 05/06/20 05/09/20 History Insulin Glargine,Hum.rec.anlog 38 - 40 unit SQ HS 05/06/20 05/09/20 History [Basaglar Kwikpen U-100] Losartan [Cozaar] 50 mg PO DAILY 05/06/20 05/09/20 History Allergies Allergy/AdvReac Type Severity Reaction Status Date / Time hydralazine Allergy severe Verified 05/09/20 07:04 headache Surgical - Exam Physical exam: General: Well-developed, well-nourished HEENT: Normocephalic, sclerae nonicteric Abdomen: Nontender, nondistended, abdominal scars noted Extremities: No edema Neuro: Alert and oriented Assessment and Plan (1) Acute renal failure Narrative/Plan: 54-year-old male with renal failure. We'll proceed with peritoneal dialysis catheter insertion at this time. Risks of bleeding, infection, poor function, Leak, edema, peritonitis, hernia, anesthesia-related complications reviewed. He understands and wishes to proceed. Current Visit: No Status: Acute Code(s): N17.9 - ACUTE KIDNEY FAILURE, UNSPECIFIED SNOMED Code(s): 36102791
[2020-05-09] MEDS ORDERED: BUPIVACAINE (PF) 0.25% 30 ML VIAL SQ ONE ×2 (07:43)
[2020-05-09] MEDS ORDERED: ePHEDrine SULFATE/0.9% NACL/PF 50 MG/5 ML SYRINGE IV ONE (07:53)
[2020-05-09] MEDS ORDERED: PROPOFOL 10 MG/ML 20 ML VIAL IV ONE (07:53)
[2020-05-09] MEDS ORDERED: LIDOCAINE 1% INJ 10MG/ML (20 ML MDV) ONE (07:53)
[2020-05-09] MEDS ORDERED: GLYCOPYRROLATE 0.2 MG/ML 2 ML VIAL ONE (07:53)
[2020-05-09] MEDS ORDERED: SUCCINYLCHOLINE CHLORIDE VIAL 200 MG/10 ML VIAL IV ONE (07:53)
[2020-05-09] MEDS ORDERED: MIDAZOLAM 2 MG/2 ML VIAL ONE (07:53)
[2020-05-09] MEDS ORDERED: ROCURONIUM 10 MG/ML (10 ML VIAL) IV ONE (07:53)
[2020-05-09] MEDS ORDERED: fentaNYL (PF) 50 MCG/ML 2 ML AMP ONE (07:53)
[2020-05-09] MEDS ORDERED: NEOSTIGMINE 1 MG/ML 10 ML VIAL ONE (07:53)
[2020-05-09] MEDS ORDERED: HYDROcodone/APAP 5-325MG 1 EACH TAB PO PRN (08:52)
[2020-05-09] MEDS ORDERED: NALOXONE 0.4 MG/ML 1 ML VIAL IV PRN (08:52)
[2020-05-09 08:55] VITALS: TEMP 98.8
--- NOTE | 2020-05-09 08:57 | P.OP ---
Date of Procedure: 05/09/20 Procedure(s) Performed: PREOPERATIVE DIAGNOSIS: Renal failure POSTOPERATIVE DIAGNOSIS: Same PROCEDURE: Attempted peritoneal dialysis catheter insertion, diagnostic laparoscopy SURGEON: Seema EBL: Minimal ANESTHESIA: Sedation plus local COMPLICATIONS: Unable to place catheter OPERATIVE PROCEDURE: The patient was placed in the operative table in the supine position. His abdomen was prepped and draped in usual sterile fashion. A small vertical incision was made in the left periumbilical location. Dissection down through the subcutaneous tissues took place using electrocautery. The anterior fascial layers were divided vertically using electrocautery. The posterior fascia was visualized. This was bluntly opened and in doing so I was able to identify mesh immediately beneath the peritoneum. I could not see a window into the abdomen in that location. We decided to place a laparoscope. A 5 mm left subcostal incision was made and the 5 mm optical trocar was used to enter the peritoneal cavity. Insufflation took place to 15 mmHg. The 5 mm lens was utilized to inspect the abdominal cavity. The patient had extensive adhesions to the abdominal wall all along the midline. Pictures were taken to show the family. Additionally the patient was found to have 1 possibly 2 incisional hernias. These were easily reducible. Decision was made not to place the catheter given the extensive adhesions. The insufflation was evacuated. The anterior fascia was closed using a running 0 Vicryl suture. The subcutaneous tissues were closed using 3-0 Vicryl sutures and the skin using 4-0 Monocryl sutures. The laparoscopic incision was also closed using a 4-0 Monocryl suture. Skin glue was then applied to both locations. DISPOSITION: Stable to recovery room
[2020-05-09 09:02] LABS: Glucose,Whole Blood 105 mg/dL (75-99)
[2020-05-09 09:05] VITALS: RESP 16
[2020-05-09 10:14] VITALS: BP 166/78; PULSE 66
== END 2020-05-09 10:24 | disposition home or self-care (01) ==
LOC: OR 06:35
PROVIDERS: ATTEND Surgery
DX: N17.9 Acute kidney failure, unspecified (principal); K66.0 Peritoneal adhesions (postprocedural) (postinfection); K43.2 Incisional hernia without obstruction or gangrene; R94.31 Abnormal electrocardiogram [ECG] [EKG]; I10 Essential (primary) hypertension; E11.9 Type 2 diabetes mellitus without complications; I99.9 Unspecified disorder of circulatory system; D64.9 Anemia, unspecified; F17.200 Nicotine dependence, unspecified, uncomplicated; Z87.19 Personal history of other diseases of the digestive system; Z98.890 Other specified postprocedural states; Z89.511 Acquired absence of right leg below knee; Z87.898 Personal history of other specified conditions; Z86.69 Personal history of other diseases of the nervous system and sense organs; Z79.899 Other long term (current) drug therapy; Z79.4 Long term (current) use of insulin; Z88.8 Allergy status to other drugs, medicaments and biological substances; Z88.5 Allergy status to narcotic agent
CPT/HCPCS: 49320; J2250; J0330; J1644; J1100; J2710; J0690; J2405; J2001; J3010; J2704